=== PATIENT | female | born 1990 | race Hispanic/Latino ===

== ENCOUNTER 2020-08-20 01:17 | Emergency (ER) | payer SELFPAY ==
[2020-08-20] MEDS ORDERED: MORPHINE 4 MG/ML SYR ONE (02:39)
[2020-08-20] MEDS ORDERED: NA CHLORIDE 0.9% 1,000 ML ONE (02:39)
[2020-08-20] MEDS ORDERED: ONDANSETRON 4 MG/2 ML VIAL ONE (02:39)
[2020-08-20 02:50] LABS: Absolute Lymphocytes (CBC) 3.3 K/uL (0.7-4.9); Basophils % 0.3 % (0-1.3); Hematocrit 37.2 % (36.0-45.0); Lymphocytes % 27.1 % (15.3-44.8); MPV 9.6 fL (7.6-11.3); RBC Red Blood Cell Count 4.91 M/uL (3.86-4.86)
[2020-08-20 03:44] LABS: Potassium 3.8 mmol/L (3.5-5.1)
[2020-08-20 03:51] LABS: Urine Bacteria <20 /HPF (<20); Urine Culture Reflex Order REFLEXED; Urine RBC <5 /HPF (NONE SEEN); Urine Urothelial Cells <5 /HPF (NONE SEEN)
[2020-08-20 03:52] LABS: Urine Blood TRACE (NEG); Urine Glucose NEGATIVE (NEG); Urine Protein NEGATIVE (NEG); Urine pH 5.5 (5.0-7.0)
--- NOTE | 2020-08-20 04:37 | ER ---
Nurse's Notes [facility] Name: Makenna Santo Age: 30 yrs Sex: Female : 1990 Arrival Date: 08/20/2020 Time: :19 Bed 5 Private MD: Diagnosis: Low Back Pain;;UTI Presentation: 08/20 01:30 Coronavirus screen: At this time, the client does not indicate any symptoms associated ea with coronavirus-19. Ebola Screen: No symptoms or risks identified at this time. Initial Sepsis Screen: Does the patient meet any 2 criteria? No. Patient's initial sepsis screen is negative. Does the patient have a suspected source of infection? No. Patient's initial sepsis screen is negative. Risk Assessment: Do you want to hurt yourself or someone else? Patient reports no desire to harm self or others. Onset of symptoms was August 20, 2020. 01:30 Method Of Arrival: Ambulatory ea 01:30 Acuity: MARY ANN 3 ea 01:32 Chief complaint: Patient states: Reports Tuesday afternoon she started having lower back ea cramping, reports she has also been having cramping. Triage Assessment: 02:03 General: Appears uncomfortable, Behavior is appropriate for age. Pain: Complains of ea pain in low back area. Musculoskeletal: Circulation, motion, and sensation intact. 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 - Social history:: Smoking status: Patient denies any tobacco usage or history of. Screenin:32 Abuse screen: Denies threats or abuse. Nutritional screening: No deficits noted. ea Tuberculosis screening: No symptoms or risk factors identified. Fall Risk None identified. Assessment: 02:04 General: Appears uncomfortable, Behavior is appropriate for age. Pain: Complains of ea pain in back and low back area. Neuro: Level of Consciousness is awake, alert, obeys commands, Oriented to person, place, time. Cardiovascular: Patient's skin is warm and dry. Respiratory: Airway is patent Respiratory effort is even, unlabored, Respiratory pattern is regular, symmetrical. Derm: Skin is pink, warm \T\ dry. 03:00 Reassessment: Patient and/or family updated on plan of care and expected duration. Pain ea level reassessed. Patient is alert, oriented x 3, equal unlabored respirations, skin warm/dry/pink. 04:40 Reassessment: Patient and/or family updated on plan of care and expected duration. Pain ea level reassessed. Patient is alert, oriented x 3, equal unlabored respirations, skin warm/dry/pink. Discharge instruction given to patient, verbalized the understanding of instruction. Pt left ED ambulatory tolerating well. Vital Signs: 02:02 BP 126 / 79; Pulse 94; Resp 18; Temp 97.6; Pulse Ox 99% ; Weight 156.94 kg; Height 5 ea ft. 6 in. (167.64 cm); 02:02 Body Mass Index 55.85 (156.94 kg, 167.64 cm) ea ED Course: 01:19 Patient arrived in ED. ag3 01:21 Angelito Salas MD is Attending Physician. 7 01:30 Arm band placed on right wrist. Patient placed in an exam room, on a stretcher, on ea pulse oximetry. 01:55 Triage completed. ea 01:56 Placed in gown. Bed in low position. Call light in reach. ea 01:57 Nguyen Lima, NANCI is Primary Nurse. ea 02:02 Urine --Ancillary (enter results) Sent. ds4 02:20 T\T\S collected, blood band applied to patient. Inserted saline lock: 20 gauge in right ds4 forearm, using aseptic technique. Blood collected. 04:12 US Transvaginal Ob In Process Unspecified. EDMS 04:46 No provider procedures requiring assistance completed. IV discontinued, intact, ea bleeding controlled, No redness/swelling at site. Pressure dressing applied. Administered Medications: 02:35 Drug: morphine 4 mg {Note: rass 0.} Route: IVP; Site: right antecubital; ea 03:00 Follow up: Response: No adverse reaction; Pain is decreased ea 02:36 Drug: Zofran (Ondansetron) 4 mg Route: IVP; Site: right antecubital; ea 03:00 Follow up: Response: No adverse reaction ea 02:36 Drug: NS 0.9% 1000 ml Route: IV; Rate: 1000 ml; Site: right antecubital; ea 04:32 Drug: Augmentin 875 mg Route: PO; ea 04:46 Follow up: Response: No adverse reaction ea Outcome: 04:36 Discharge ordered by mh7 04:46 Discharged to home ambulatory, with family. ea 04:46 Condition: stable 04:46 Discharge instructions given to patient, Instructed on discharge instructions, follow up and referral plans. medication usage, Demonstrated understanding of instructions, follow-up care, medications, Prescriptions given X 3. 04:47 Patient left the ED. ea Signatures: Dispatcher [employer] EDMS Daisy Joya RN Dayday Sanchez4 Nguyen Lima RN Nita So ea3 Angelito Salas MD MD mh7 Corrections: (The following items were deleted from the chart) 02:36 02:35 morphine 4 mg IVP in right antecubital ea ea 03:48 01:57 LMP 07/07/2020 popeye chapman
--- NOTE | 2020-08-20 04:37 | EDPHYS ---
Physician Documentation [facility] Name: Makenna Santo Age: 30 yrs Sex: Female : 1990 Arrival Date: 08/20/2020 Time: 01:19 Bed 5 Private MD: ED Physician Angelito Salas HPI: 08/20 02:12 This 30 yrs old Female presents to ER via Ambulatory with complaints of Back mh7 Pain. 02:12 The patient presents with pain that is acute. The symptoms are located in the low back. mh7 Onset: The symptoms/episode began/occurred 3 day(s) ago. The pain does not radiate. Associated signs and symptoms: Pertinent positives: nausea, vomiting, Pertinent negatives: abdominal pain, chest pain, constipation, dysuria, fever, headache, hematuria, incontinence, numbness, tingling, urinary retention, weakness. The problem was sustained when bending over, from twisting. Modifying factors: The patient symptoms are alleviated by nothing, the patient symptoms are aggravated by bending, movement. Severity of symptoms: At their worst the symptoms were moderate, yesterday, in the emergency department the symptoms are unchanged. 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 - Social history:: Smoking status: Patient denies any tobacco usage or history of. ROS: 02:12 Constitutional: Negative for fever, chills, and weight loss, Eyes: Negative for injury, mh7 pain, redness, and discharge, ENT: Negative for injury, pain, and discharge, Neck: Negative for injury, pain, and swelling, Cardiovascular: Negative for chest pain, palpitations, and edema, Respiratory: Negative for shortness of breath, cough, wheezing, and pleuritic chest pain, Abdomen/GI: Negative for abdominal pain, nausea, vomiting, diarrhea, and constipation, : Negative for injury, bleeding, discharge, and swelling, MS/Extremity: Negative for injury and deformity, Skin: Negative for injury, rash, and discoloration, Neuro: Negative for headache, weakness, numbness, tingling, and seizure, Psych: Negative for depression, anxiety, suicide ideation, homicidal ideation, and hallucinations, Allergy/Immunology: Negative for hives, rash, and allergies, Endocrine: Negative for neck swelling, polydipsia, polyuria, polyphagia, and marked weight changes, Hematologic/Lymphatic: Negative for swollen nodes, abnormal bleeding, and unusual bruising. Exam: 02:12 Head/Face: Normocephalic, atraumatic. Eyes: Pupils equal round and reactive to light, mh7 extra-ocular motions intact. Lids and lashes normal. Conjunctiva and sclera are non-icteric and not injected. Cornea within normal limits. Periorbital areas with no swelling, redness, or edema. Neck: Trachea midline, no thyromegaly or masses palpated, and no cervical lymphadenopathy. Supple, full range of motion without nuchal rigidity, or vertebral point tenderness. No Meningismus. Chest/axilla: Normal chest wall appearance and motion. Nontender with no deformity. No lesions are appreciated. Cardiovascular: Regular rate and rhythm with a normal S1 and S2. No gallops, murmurs, or rubs. Normal PMI, no JVD. No pulse deficits. Respiratory: Lungs have equal breath sounds bilaterally, clear to auscultation and percussion. No rales, rhonchi or wheezes noted. No increased work of breathing, no retractions or nasal flaring. Abdomen/GI: Soft, non-tender, with normal bowel sounds. No distension or tympany. No guarding or rebound. No evidence of tenderness throughout. 02:12 Skin: Warm, dry with normal turgor. Normal color with no rashes, no lesions, and no evidence of cellulitis. MS/ Extremity: Pulses equal, no cyanosis. Neurovascular intact. Full, normal range of motion. Neuro: Awake and alert, GCS 15, oriented to person, place, time, and situation. Cranial nerves II-XII grossly intact. Motor strength 5/5 in all extremities. Sensory grossly intact. Cerebellar exam normal. Normal gait. Psych: Awake, alert, with orientation to person, place and time. Behavior, mood, and affect are within normal limits. 02:12 Constitutional: The patient appears in no acute distress, alert, awake, uncomfortable. 02:12 Back: pain, that is mild, ROM is painful, with all movement, normal spinal alignment noted, CVA tenderness, is absent, muscle spasm, is appreciated in the lumbar area, Straight leg raises: of both lower extremities does not illicit pain. Vital Signs: 02:02 BP 126 / 79; Pulse 94; Resp 18; Temp 97.6; Pulse Ox 99% ; Weight 156.94 kg; Height 5 ea ft. 6 in. (167.64 cm); 02:02 Body Mass Index 55.85 (156.94 kg, 167.64 cm) ea MDM: 02:01 Patient medically screened. [facility] 04:32 Differential diagnosis: chronic back pain, Osteoarthritis Pyelonephritis mh7 sprain, Ureterolithiasis UTI. Data reviewed: vital signs, nurses notes, old medical records, lab test result(s), CBC, electrolytes, urinalysis, UPT: radiologic studies, ultrasound. Data interpreted: Pulse oximetry: on room air is 99 %. Interpretation: normal. Counseling: I had a detailed discussion with the patient and/or guardian regarding: the historical points, exam findings, and any diagnostic results supporting the discharge/admit diagnosis, lab results, radiology results, the need for outpatient follow up, an OB/Gyne specialist, to return to the emergency department if symptoms worsen or persist or if there are any questions or concerns that arise at home. Response to treatment: the patient's symptoms have resolved after treatment, the patient's blood pressure is in an acceptable range, mental status has returned to baseline, the patient no longer shows bradycardia, the patient is not short of breath, the patient is not tachycardic, the patient's pain is gone, the patient's temperature has normalized. 08/20 02:01 Order name: Quantitative Hcg; Complete Time: 03:56 ea 08/20 02:01 Order name: Abo/rh Typing; Complete Time: 03:56 ea 08/20 02:01 Order name: Basic Metabolic Panel; Complete Time: 03:56 ea 08/20 02:01 Order name: CBC with Diff; Complete Time: 02:58 ea 08/20 02:01 Order name: Urine --Ancillary (enter results); Complete Time: 03:56 ds4 08/20 02:01 Order name: Urine Microscopic Only; Complete Time: 03:56 ds4 08/20 02:01 Order name: Urine Test (obtain specimen); Complete Time: 02:01 ea 08/20 02:02 Order name: Urine Dipstick--Ancillary (enter results); Complete Time: 03:56 ds4 08/20 02:03 Order name: US Transvaginal Ob mh7 08/20 03:53 Order name: Urine Culture EDMS 08/20 02:01 Order name: IV Saline Lock; Complete Time: 02:22 ea 08/20 02:01 Order name: Labs collected and sent; Complete Time: 02:22 ea 08/20 02:01 Order name: NPO; Complete Time: 02:01 ea 08/20 02:01 Order name: Urine Dipstick-Ancillary (obtain specimen); Complete Time: 02:02 ea Administered Medications: 02:35 Drug: morphine 4 mg {Note: rass 0.} Route: IVP; Site: right antecubital; ea 03:00 Follow up: Response: No adverse reaction; Pain is decreased ea 02:36 Drug: Zofran (Ondansetron) 4 mg Route: IVP; Site: right antecubital; ea 03:00 Follow up: Response: No adverse reaction ea 02:36 Drug: NS 0.9% 1000 ml Route: IV; Rate: 1000 ml; Site: right antecubital; ea 04:32 Drug: Augmentin 875 mg Route: PO; ea 04:46 Follow up: Response: No adverse reaction ea Disposition: 08/20/20 04:36 Discharged to Home. Impression: Low Back Pain, , UTI. - Condition is Stable. - Discharge Instructions: Back Pain in , Back Pain, Adult, [id number], and Urinary Tract Infection. - Prescriptions for Augmentin 875- 125 mg Oral Tablet - take 1 tablet by ORAL route every 12 hours for 7 days; 14 tablet. Zofran ODT 4 mg Oral tablet,disintegrating - place 1 tablet by TRANSLINGUAL route every 8 hours As needed; 10 tablet. - Work release form, Family Work Release, Medication Reconciliation Form, Thank You Letter, Antibiotic Education, Prescription Opioid Use form. - Follow up: Private Physician; When: 1 - 2 days; Reason: Worsening of condition, Recheck today's complaints, Continuance of care, Re-evaluation by your physician. - Problem is an acute exacerbation. - Symptoms have improved. Signatures: Dispatcher [employer] Nguyen Nielson RN RN ea Holmes, Maurice, MD MD mh7 Corrections: (The following items were deleted from the chart) 04:47 04:36 08/20/2020 04:36 Discharged to Home. Impression: Low Back Pain; ; UTI. ea Condition is Stable. Forms are Medication Reconciliation Form, Thank You Letter, Antibiotic Education, Prescription Opioid Use. Follow up: Private Physician; When: 1 - 2 days; Reason: Worsening of condition, Recheck today's complaints, Continuance of care, Re-evaluation by your physician. Problem is an acute exacerbation. Symptoms have improved. mh7
[2020-08-20] MEDS ORDERED: AMOX/K CLAV 875 MG TAB ONE (04:43)
[2020-08-20 04:56] VITALS: BP 126/79; TEMP 97.6; O2SAT 99
--- NOTE | 2020-08-20 08:00 | RAD REPORT ---
EXAM DESCRIPTION: US - Transvaginal OB - 08/20/2020 4:13 am CLINICAL HISTORY: ABD CRAMPING, , beta HCG 21 Preliminary findings were provided at the time of the study. COMPARISON: Transvaginal OB dated 09/16/2017 FINDINGS: Exam is limited due to large body habitus. Several nabothian cysts are present. Right ovarian detail is limited. No suspicious mass. A small 14 millimeter cyst is identified. No left ovarian abnormality seen. Left ovary detail is limited as well . Uterus is approximately 10 x 5 x 5.5 cm. No myometrial mass. Endometrium is approximately 13 mm in th ickness. No gestational sac or sac remnant identifiable. No hematoma or mass within the endometrial cavity. No adnexal abnormality to suspect ectopic . IMPRESSION: No intrauterine gestational sac or sac remnant. No suspicion for ectopic at th is time. Follow-up sonography can be performed as warranted if serial HCG values indicate ongoing .
== END 2020-08-20 04:47 | disposition home or self-care (01) ==
LOC: ER 01:17
DX: O23.40 Unspecified infection of urinary tract in pregnancy, unspecified trimester (principal); Z3A.00 Weeks of gestation of pregnancy not specified
CPT/HCPCS: 36415; 76817; 80048; 81003; 81015; 81025; 84702; 85025; 86900; 86901; 87086; 87088; 96374; 96375; 99284; J2405; J7030

== ENCOUNTER 2021-12-04 01:17 | Emergency (ER) | payer SELFPAY ==
--- OUTSIDE RECORDS SUMMARY | 2021-12-04 01:29 | XMS REPORT | Continuity of Care Document ---
:1990 Author Organization [facility] [place] [facility] t Address Formerly [facility] [address] [place] [id number] Care Team Providers Name Role Phone Wali ABARCA Attending Clinician Unavailable Riam ESCAMILLA, C Attending Clinician Nicolle UP R Attending Clinician Fabricio CHRISTINE Attending Clinician Unavailable Visit, Nurse Attending Clinician Unavailable Cecil CASAREZ, M Attending Clinician Doctor Unassigned, Name Attending Clinician Unavailable Risk Attending Clinician Unavailable Socorro ESCAMILLA, L Attending Clinician Ultrasound Attending Clinician Unavailable Fadi CASAREZ R Attending Clinician Martin CASAREZ Attending Clinician Eliceo CASAREZ L Attending Clinician Savannah CHRISTINE, T Attending Clinician Unavailable Antinoe CASAREZ Attending Clinician Evans Attending Clinician Unavailable Lab Attending Clinician Unavailable Guille CASAREZ, W Attending Clinician Hunter CHRISTINE Attending Clinician Unavailable Dakotah ANGEL, R Attending Clinician Lab Attending Clinician Unavailable 3, Mfm Usg Room Attending Clinician Unavailable Gene ANGEL Attending Clinician 5, Mfm Usg Room Attending Clinician Unavailable Nico CASAREZ, F Attending Clinician Trimester, Res-1st Attending Clinician Unavailable Nataly CASAREZ, W Attending Clinician Sean SWARTZP, N Attending Clinician Alexis Arizmendi Attending Clinician Brandi FENTON Admitting Clinician Unavailable Brandi Fenton MD Admitting Clinician Payers Payer Name Policy Type Policy Number Effective Date Expiration Date Anh ADAN [id number] 2020 HEALTH PLAN MOM 00:00:00 CHIP LOW F[employer] MEDICAID ALIEN PENDING 2020 PENDING 00:00:00 FAMILY PLANNING [id number] 2019 2021 KELY 0-100% 00:00:00 00:00:00 Advance Directives Directive Decision Effective Termination Comments Source Date Date Healthcare Agents on N/A Univ ersity FileNameRelationshipHealthcare [facility] [place] Agent Medical RelationshipCommunicationJacob [place] GuerraSpouseHealth Care [phone] (Mobile) April BourgeoisValleywise Health Medical CentertherHealth Care [phone] (Mobile) Problems Condition Condition Condition Status Onset Resolution Last Treating Co mments Source Name Details Category Date Date Treatment Clinician Date Routine Routine Disease Active Univers 6-29 it y of [place] 00 [place] 37 weeks 37 weeks Disease Active Unive rs gestation gestation 6-07 ity of of of 00:00: [place] 00 [facility] LGA (large LGA (large Disease Active Overview : Univers for for 5-25 Formattin ity of gestationa gestationa 00:00: g of this [place] l age) l age) 00 note Medical fetus fetus might be Branch affecting affecting different management management from the of mother of mother original. See usg report 33 weeks 33 weeks Disease Active Unive rs gestation gestation 5-14 ity of of of 00:00: [place] 00 [facility] Fall at Fall at Disease Active Univers home home 5-14 ity of 00:00: [address] Branch GDM GDM Disease Active Overview: Univer s (gestation (gestation 3-24 Formattin ity of al al 00:00: g of this [place] diabetes diabetes 00 note Medica l mellitus) mellitus) might be Br anch different from the original. A1c 6.1 Abnormal Abnormal Disease Active 2019-11 Overview: Un petra maternal maternal 2-11 Formattin ity of glucose glucose 00:00: g of this [place] tolerance, tolerance, 00 note Me dical antepartum antepartum might be Branch different from the original. Passed early 3hr gtt Rubella Rubella Disease Active 2019-11 Overview: Univ ers non-immune non-immune 2-11 Formattin ity of status, status, 00:00: g of this [place] antepartum antepartum 00 note Me dical might be Branch different from the original. Address pp Supervisio Supervisio Disease Active 2019-11 U nivers n of n of 2-10 ity of high-risk high-risk 00:[place] [facility] Multiparit Multiparit Disease Active 2019-11 U nivers y y 2-10 ity of 00:00: [place] 00 Medical Branch History of History of Disease Active 2019-11 Overview : Univers depression depression 2-10 Formattin ity of 00:00: g of this [place] 00 note Medical might be Branch different from the original. Not on meds since 2017, reports stable mood currently Desires Desires Disease Active 2019-11 Univers 2-10 ity of (vaginal (vaginal 00:00: [place] 00 Medical after after Branch ) ) trial trial Threatened Threatened Disease Active U nivers miscarriag miscarriag 26 it y of e e 00:00: [place] [facility] Branch Previous Previous Disease Active Overview: Un petra 8-14 Formattin ity of delivery delivery 00:00: g of this Bib as affecting affecting 00 note [facility] might be Br anch different from the original. Primary c sec, desires see chart review Obesity Obesity Disease Active Univers affecting affecting 8-14 it[place] first 00 Medica l trimester trimester Bran ch High risk High risk Disease Active Uni vers , , 8-14 it y of antepartum antepartum [place] [facility] Branch Well woman Well woman Disease Active U nivers exam exam 7-19 ity of 00:00: [place] 00 Medical [place] Contracept Contracept Disease Active U nivers omega omega 7-19 ity of management management [place] Morbid Morbid Disease Active Univers obesity obesity 7-19 ity of 00:00: [address] Obesity in Obesity in Disease Active U nivers 7-19 ity of 00:00: [address] Rubella Rubella Disease Active 2016-11 Univers non-immune non-immune 0-25 it y of status, status, 00:00: [place] antepartum antepartum 00 Me dical Branch History of History of Disease Active 2016-11 Overview : Univers suicidal suicidal 0-24 OD on ity of ideation ideation 00:00: ibuprofen Bib as 00 last Medical week, Branch admitted to the hospital on 08-23, patient reports stable mood today History of History of Disease Active 2016-11 Overview : Univers attempted attempted 0-24 Formattin i ty of suicide suicide 00:00: g of this [place] note Medical might be Branch different from the original. OD on ibuprofen last week, admitted to the hospital on 08-23, patient reports stable mood today Allergies, Adverse Reactions, Alerts Allergy Allergy Status Severity Reaction(s) Onset Inactive Treating Comm ents Source Name Type Date Date Clinician NO KNOWN Drug Active Univers ALLERGIE Class ity of S [facility] Social History Social Habit Start Date Stop Date Quantity Comments Source ASSERTION 2020-08-11 University of 00:00:00 [facility] Exposure to Not sure [facility] SARS-CoV-2 [facility] [place] [facility] (event) [place] Alcohol intake 2021-05-05 2021-05-05 Current drinker Unive rsity of 00:00:00 00:00:00 of alcohol [facility] [place] [facility] (finding) [place] Tobacco use and 2021-05-05 2021-05-05 Never used Universit y of exposure 00:00:00 00:00:00 [facility] Alcohol Comment 2017-08-30 2017-08-30 social; D/C Universi ty of 00:00:00 00:00:00 since 3 months [facility] Sex Assigned At [birth year] Universit y of 00:00:00 00:00:00 [facility] Smoking Status Start Date Stop Date Source Never smoker [facility] Medications Ordered Filled Start Stop Current Ordering Indication Dosage Frequency Signature Comments Components Source Medication Medication Date Date Medication? Clinician (SIG) Name Name ketorolac No 15mg 15 mg, Unive rs (TORADOL) 6-29 06-29 Slow IV ity of injection 08:30: 07:19 Push, [place] 15 mg 00 :00 ONCE, 1 Medical dose, Tue Branch 05/05/21 at 0330, JOHN
[facility] Restricted medication : CARMEN MORALES HYDROcodone 2020- No 1{tbl} 1 tablet, Univers -acetaminop 05-05 Oral, ity of hen (NORCO 08:30: 07:19 ONCE, 1 Bib as 5) 5-325 mg 00 :00 dose, Tue Med ical tablet 1 05/05/21 at [facility] h tablet 0330, JOHN NaCl 0.9% 2020- No 1000mL at 999 Uni vers (NS) bolus 05-05 mL/hr, ity of infusion 05:00: 07:36 1,000 mL, Bib as 1,000 mL 00 :00 IV Medical Infusion, Branch ONCE, 1 dose, 05/05/21 at 0000, JOHN 0 Yes [id number] 1{tbl} Take 1 Univers vitamin 6-10 tablet by ity of w/FA tablet 00:00: mouth [place] 00 daily. Medical Branch docusate Yes [id number] 240mg Take 1 U nivers calcium 240 6-10 capsule by it y of mg capsule 00:00: mouth once [place] 00 daily as Medical needed for Branch Constipati on. ferrous Yes [id number] 325mg Take 1 Un petra sulfate 325 6-10 tablet by ity of mg (65 mg 00:00: mouth 2 [place] iron) 00 (two) Medical tablet times Branch daily. ibuprofen Yes [id number] 600mg Take 1 Univers 600 mg 6-10 tablet by ity of tablet 00:00: mouth [place] 00 every 6 Medical (six) Branch hours as needed (Pain). Take with food or milk. Yes [id number] 1{tbl} Take 1 Univers vitamin 6-10 tablet by ity of w/FA tablet 00:00: mouth [place] 00 daily. Medical Branch docusate Yes [id number] 240mg Take 1 U nivers calcium 240 6-10 capsule by it y of mg capsule 00:00: mouth once [place] 00 daily as Medical needed for Branch Constipati on. ferrous Yes [id number] 325mg Take 1 Un pet[place] sulfate 325 6-10 tablet by ity of mg (65 mg 00:00: mouth 2 [place] iron) 00 (two) Medical tablet times Branch daily. ibuprofen Yes [id number] 600mg Take 1 Univers 600 mg 6-10 tablet by ity of tablet 00:00: mouth [place] 00 every 6 Medical (six) Branch hours as needed (Pain). Take with food or milk. Yes [id number] 1{tbl} Take 1 Univers vitamin 6-10 tablet by ity of w/FA tablet 00:00: mouth [place] 00 daily. Medical Branch docusate Yes [id number] 240mg Take 1 U nivers calcium 240 6-10 capsule by it y of mg capsule 00:00: mouth once [place] 00 daily as Medical needed for Branch Constipati on. ferrous Yes [id number] 325mg Take 1 Un pet[place] sulfate 325 6-10 tablet by ity of mg (65 mg 00:00: mouth 2 [place] iron) 00 (two) Medical tablet times Branch daily. ibuprofen Yes [id number] 600mg Take 1 Univers 600 mg 6-10 tablet by ity of tablet 00:00: mouth [place] 00 every 6 Medical (six) Branch hours as needed (Pain). Take with food or milk. Yes [id number] 1{tbl} Take 1 Univers vitamin 6-10 tablet by ity of w/FA tablet 00:00: mouth [place] 00 daily. Medical Branch docusate Yes [id number] 240mg Take 1 U nivers calcium 240 6-10 capsule by it y of mg capsule 00:00: mouth once [place] 00 daily as Medical needed for Branch Constipati on. ferrous Yes [id number] 325mg Take 1 Un petra sulfate 325 6-10 tablet by ity of mg (65 mg 00:00: mouth 2 [place] iron) 00 (two) Medical tablet times Branch daily. ibuprofen Yes [id number] 600mg Take 1 Univers 600 mg 6-10 tablet by ity of tablet 00:00: mouth [place] 00 every 6 Medical (six) Branch hours as needed (Pain). Take with food or milk. enoxaparin 2020- No [id number] 40mg inject 0.4 Univers 40 mg/0.4 6-10 07-23 mL under ity o f mL 00:00: 04:59 the skin [place] injection 00 :00 every 12 Medica l (twelve) Branch hours for 42 days. enoxaparin 2020- No [id number] 40mg inject 0.4 Univers 40 mg/0.4 6-10 07-23 mL under ity o f mL 00:00: 04:59 the skin [place] injection 00 :00 every 12 Medica l (twelve) Branch hours for 42 days. enoxaparin 2020- No [id number] 40mg inject 0.4 Univers 40 mg/0.4 6-10 07-23 mL under ity o f mL 00:00: 04:59 the skin [place] injection 00 :00 every 12 Medica l (twelve) Branch hours for 42 days. enoxaparin 2020- No [id number] 40mg inject 0.4 Univers 40 mg/0.4 6-10 07-23 mL under ity o f mL 00:00: 04:59 the skin [place] injection 00 :00 every 12 Medica l (twelve) Branch hours for 42 days. HYDROcodone 2020- No [id number] 1{tbl} Take 1 U nivers -acetaminop 04-1618 tablet by it y of hen 5-325 00:00: 04:59 mouth [place] mg tablet 00 :00 every 6 Medical (six) Branch hours as needed for Pain (scale 4-6) for up to 7 days. Indication s: acute pain rho(D) Yes 300ug 300 mcg, Univer s immune 08 Intramuscu ity of globulin 16:21: lar, ONCE, Bib as (RHOGAM) 04 For 1 Medical syringe 300 dose, Branch mcg Conditiona l, Routine ondansetron Yes 4mg 4 mg, Slow Univers (ZOFRAN 04-14 IV Push, ity of (PF)) 16:20: Q8HPRN, [place] injection 4 59 Starting Medi oscar mg 04/14/21 Branch at 1120, Until Discontinu ed, Routine, Nausea and Vomiting (N/V) simethicone 2020-0 Yes 160mg 160 mg, Un petra (GAS RELIEF 6-08 Oral, ity of (SIMETHICON 16:20: PC+HSPRN, [place] E)) 59 Starting Medical chewable Tue04/14/21 Branc h tablet 160 at 1120, mg Until Discontinu ed, Routine, Gas HYDROcodone 2020-0 Yes 2{tbl} 2 tablet, Univers -acetaminop 6-08 Oral, ity of hen (NORCO 16:20: Q6HPRN, [place] 5) 5-325 mg 58 Starting Medi oscar tablet 2 Tue04/14/21 Branc h tablet at 1120, Until Discontinu ed, Routine, Pain (scale 7-10), If uncontroll ed by Ibuprofen HYDROcodone 0 Yes 1{tbl} 1 tablet, Univers -acetaminop 6-08 Oral, ity of hen (NORCO 16:20: Q6HPRN, [place] 5) 5-325 mg 58 Starting Medi oscar tablet 1 Tue04/14/21 Branc h tablet at 1120, Until Discontinu ed, Routine, Pain (scale 4-6), If uncontroll ed by Ibuprofen ibuprofen 2020-0 Yes 600mg 600 mg, Univ ers (IBU) 6-08 Oral, ity of tablet 600 16:20: Q6HPRN, [place] mg 58 Starting Medical Tue04/14/21 Branch at 1120, Until Discontinu ed, Routine, Pain (scale 1-3) diphenhydrA 0 Yes 25mg 25 mg, IV U nivers MINE-0.9 % 6-08 Piggyback, ity of sod.chlr 16:20: Administer Bib as (BENADRYL) 58 over 30 Medica l 25 mg/50 mL Minutes, Bran ch piggyback Q6HPRN, 1 25 mg dose, Starting Tue04/14/21 at 1120, Until Discontinu ed, Routine, Itching diphenhydrA 2020-0 Yes 25mg 25 mg, Univ ers MINE 6-08 Oral, ity of (BENADRYL) 16:20: Q6HPRN, [place] tablet 25 58 Starting Medica l mg Tue04/14/21 Branch at 1120, Until Discontinu ed, Routine, Sleep, Itching bisacodyL Yes 10mg 10 mg, Univer s (DULCOLAX) 04-14 Rectal, ity of suppository 16:20: QDAILYPRN, [place] 10 mg 58 Starting Medical [facility] 04/14/21 Branch at 1120, Until Discontinu ed, Routine, Constipati on docusate Yes 240mg 240 mg, Unive rs calcium 08 Oral, ity of (SURFAK) 16:20: QDAILYPRN, Bib as capsule 240 58 Starting Medi oscar mg 04/14/21 Branch at 1120, Until Discontinu ed, Routine, Constipati on magnesium Yes 30mL 30 mL, Univer s hydroxide 04-14 Oral, ity of (MILK OF 16:20: QDAILYPRN, Bib as MAGNESIA) 58 Starting Medica l 400 mg/5 mL Tue04/14/21 Br anch suspension at 1120, 30 mL Until Discontinu ed, Routine, Constipati on nalbuphine Yes 5mg 5 mg, Univer s (NUBAIN) 04-14 Intravenou ity o f injection 5 15:45: s, PRN, 1 [place] mg 49 dose, Medical Starting Branch 04/14/21 at 1045, Until Discontinu ed, Routine, Itching, PACU naloxone 2020- No .4mg 0.4 mg, Unive rs (NARCAN) 04-14 06-10 Slow IV ity of injection 15:45: 15:44 Push, PRN [place] 0.4 mg 49 :49 - SEE Medical INSTRUCTIO Branch NS, Starting Tue04/14/21 at 1045, Until [place] 04/16/21 at 1044, Routine, Analgesia Recovery, PACU Insulin Yes [id number] Inject Univ ers Syringe-Nee 5-20 humulin R ity of dle U-100 00:00: insulin SQ [place] (BD INSULIN 00 AC Medical SYRINGE breakfast Branch ULTRA-FINE) and SQ AC 0.5 mL 31 supper as gauge x directed 03/22" Syrg Insulin Yes [id number] Inject Univ ers Syringe-Nee 5-20 humulin R ity of dle U-100 00:00: insulin SQ [place] (BD INSULIN 00 AC Medical SYRINGE breakfast Branch ULTRA-FINE) and SQ AC 0.5 mL 31 supper as gauge x directed 5/16" Syrg Insulin 2020-0 Yes [id number] Inject Univ ers Syringe-Nee 5-20 humulin R ity of dle U-100 00:00: insulin SQ [place] (BD INSULIN 00 AC Medical SYRINGE breakfast Branch ULTRA-FINE) and SQ AC 0.5 mL 31 supper as gauge x directed 5/16" Syrg Insulin 2020-0 Yes [id number] Inject Univ ers Syringe-Nee 5-20 humulin R ity of dle U-100 00:00: insulin SQ [place] (BD INSULIN 00 AC Medical SYRINGE breakfast Branch ULTRA-FINE) and SQ AC 0.5 mL 31 supper as gauge x directed 5/16" Syrg Insulin 0 Yes [id number] Inject Univ ers Syringe-Nee 5-20 humulin R ity of dle U-100 00:00: insulin SQ [place] (BD INSULIN 00 AC Medical SYRINGE breakfast Branch ULTRA-FINE) and SQ AC 0.5 mL 31 supper as gauge x directed 5/16" Syrg Insulin 0 Yes [id number] Inject Univ ers Syringe-Nee 5-20 humulin R ity of dle U-100 00:00: insulin SQ [place] (BD INSULIN 00 AC Medical SYRINGE breakfast Branch ULTRA-FINE) and SQ AC 0.5 mL 31 supper as gauge x directed 5/16" Syrg Insulin 2020-0 Yes [id number] Inject Univ ers Syringe-Nee 5-20 humulin R ity of dle U-100 00:00: insulin SQ [place] (BD INSULIN 00 AC Medical SYRINGE breakfast Branch ULTRA-FINE) and SQ AC 0.5 mL 31 supper as gauge x directed 5/16" Syrg Insulin 2020-0 Yes [id number] Inject Univ ers Syringe-Nee 5-20 humulin R ity of dle U-100 00:00: insulin SQ [place] (BD INSULIN 00 AC Medical SYRINGE breakfast Branch ULTRA-FINE) and SQ AC 0.5 mL 31 supper as gauge x directed 5/16" Syrg Insulin 2020-0 Yes [id number] Inject Univ ers Syringe-Nee 5-20 humulin R ity of dle U-100 00:00: insulin SQ [place] (BD INSULIN 00 AC Medical SYRINGE breakfast Branch ULTRA-FINE) and SQ AC 0.5 mL 31 supper as gauge x directed 03/22" Syrg Insulin Yes [id number] Inject Univ ers Syringe-Nee 5-20 humulin R ity of dle U-100 00:00: insulin SQ [place] (BD INSULIN 00 AC Medical SYRINGE breakfast Branch ULTRA-FINE) and SQ AC 0.5 mL 31 supper as gauge x directed 03/22" Syrg lactated 2020- No 1000mL at 1,000 Un petra ringers IV 5-14 05-14 mL/hr, ity of infusion 18:30: 17:30 1,000 mL, Bib as 1,000 mL 00 :00 IV Medical Infusion, Branch ONCE, 1 dose, Tue03/20/21 at 1330, Routine acetaminoph Yes 1000mg 1,000 mg, Univers en 5-14 Oral, ity of (TYLENOL) 17:21: Q6HPRN, [place] tablet 24 Starting Medical 1,000 mg Tue Branch 03/20/21 at 1221, Until Discontinu ed, Routine, Pain (scale 1-3) BD VEO Yes INJECT Univers INSULIN 4-23 INSULIN ity of SYRINGE UF 00:00: USE THREE [place] 1 mL 31 00 TIMES A Medical gauge x DAY K Branch 64" Syrg CRAIG BD VEO Yes INJECT Univers INSULIN 4-23 INSULIN ity of SYRINGE UF 00:00: USE THREE [place] 1 mL 31 00 TIMES A Medical gauge x DAY K Branch 1564" Syrg CRAIG BD VEO Yes INJECT Univers INSULIN 4-23 INSULIN ity of SYRINGE UF 00:00: USE THREE [place] 1 mL 31 00 TIMES A Medical gauge x DAY K Branch 1564" Syrg CRAIG BD VEO Yes INJECT Univers INSULIN 4-23 INSULIN ity of SYRINGE UF 00:00: USE THREE [place] 1 mL 31 00 TIMES A Medical gauge x DAY K Branch 1564" Syrg CRAIG BD VEO Yes INJECT Univers INSULIN 4-23 INSULIN ity of SYRINGE UF 00:00: USE THREE [place] 1 mL 31 00 TIMES A Medical gauge x DAY K Branch 15/64" Theodore CRAIG BD VEO 2020-0 Yes INJECT Univers INSULIN 4-23 INSULIN ity of SYRINGE UF 00:00: USE THREE [place] 1 mL 31 00 TIMES A Medical gauge x DAY K Branch 15/64" Theodore CRAIG BD VEO 2020-0 Yes INJECT Univers INSULIN 4-23 INSULIN ity of SYRINGE UF 00:00: USE THREE [place] 1 mL 31 00 TIMES A Medical gauge x DAY K Branch 15/64" Theodore CRAIG BD VEO 2020-0 Yes INJECT Univers INSULIN 4-23 INSULIN ity of SYRINGE UF 00:00: USE THREE [place] 1 mL 31 00 TIMES A Medical gauge x DAY K Branch 15/64" Theodore CRAIG BD VEO 2020-0 Yes INJECT Univers INSULIN 4-23 INSULIN ity of SYRINGE UF 00:00: USE THREE [place] 1 mL 31 00 TIMES A Medical gauge x DAY K Branch 15/64" Theodore CRAIG BD VEO 2020-0 Yes INJECT Univers INSULIN 4-23 INSULIN ity of SYRINGE UF 00:00: USE THREE [place] 1 mL 31 00 TIMES A Medical gauge x DAY K Branch 15/64" Theodore CRAIG BD VEO 2020-0 Yes INJECT Univers INSULIN 4-23 INSULIN ity of SYRINGE UF 00:00: USE THREE [place] 1 mL 31 00 TIMES A Medical gauge x DAY K Branch 15/64" Theodore CRAIG BD VEO 2020-0 Yes INJECT Univers INSULIN 4-23 INSULIN ity of SYRINGE UF 00:00: USE THREE [place] 1 mL 31 00 TIMES A Medical gauge x DAY K Branch 15/64" Theodore CRAIG BD VEO 2020-0 Yes INJECT Univers INSULIN 4-23 INSULIN ity of SYRINGE UF 00:00: USE THREE [place] 1 mL 31 00 TIMES A Medical gauge x DAY K Branch 15/64" Theodore CRAIG BD VEO 2020-0 Yes INJECT Univers INSULIN 4-23 INSULIN ity of SYRINGE UF 00:00: USE THREE [place] 1 mL 31 00 TIMES A Medical gauge x DAY K Branch 15/64" Theodore CRAIG BD VEO 2020-0 Yes INJECT Univers INSULIN 4-23 INSULIN ity of SYRINGE UF 00:00: USE THREE [place] 1 mL 31 00 TIMES A Medical gauge x DAY K Branch 15/64" Syrg CRAIG BD VEO 0 Yes INJECT Univers INSULIN 4-23 INSULIN ity of SYRINGE UF 00:00: USE THREE [place] 1 mL 31 00 TIMES A Medical gauge x DAY K Branch 15/64" Syrg CRAIG BD VEO 0 Yes INJECT Univers INSULIN 4-23 INSULIN ity of SYRINGE UF 00:00: USE THREE [place] 1 mL 31 00 TIMES A Medical gauge x DAY K Branch 1564" Syrg CRAIG BD VEO 2020-0 Yes INJECT Univers INSULIN 4-23 INSULIN ity of SYRINGE UF 00:00: USE THREE [place] 1 mL 31 00 TIMES A Medical gauge x DAY K Branch 15/64" Syrg CRAIG BD VEO 2020-0 Yes INJECT Univers INSULIN 4-23 INSULIN ity of SYRINGE UF 00:00: USE THREE [place] 1 mL 31 00 TIMES A Medical gauge x DAY K Branch 64" Syrg CRAIG insulin NPH 0 Yes [id number] Take 66 Univers (HUMULIN N 4-22 units SQ ity o f NPH U-100 00:00: AC [place] INSULIN) 00 breakfast Medica l 100 unit/mL and 24 Branch injection units SQ HS insulin 2020-0 Yes [id number] Take 32 Uni vers regular 4-22 units SQ ity of human 00:00: AC [place] (HUMULIN R 00 breakfast Medi oscar REGULAR and 24 Branch U-100 units SQ INSULN) 100 AC supper unit/mL injection Insulin 2020-0 Yes [id number] Inject Univ ers Syringe-Nee 4-22 insulin sq it y of dle U-100 00:00: 3 times a Bib as (BD INSULIN Medical SYRINGE Branch ULTRA-FINE) 1 mL 31 gauge x 5/16 Syrg insulin NPH 2020-0 Yes [id number] Take 66 Univers (HUMULIN N 4-22 units SQ ity o f NPH U-100 00:00: AC [place] INSULIN) 00 breakfast Medica l 100 unit/mL and 24 Branch injection units SQ HS insulin 2020-0 Yes [id number] Take 32 Uni vers regular 4-22 units SQ ity of human 00:00: AC [place] (HUMULIN R 00 breakfast Medi oscar REGULAR and 24 Branch U-100 units SQ INSULN) 100 AC supper unit/mL injection Insulin Yes [id number] Inject Univ ers Syringe-Nee 4-22 insulin sq it y of dle U-100 00:00: 3 times a Bib as (BD INSULIN day Medical SYRINGE Branch ULTRA-FINE) 1 mL 31 gauge x 5/16 Syrg insulin NPH Yes [id number] Take 66 Univers (HUMULIN N 4-22 units SQ ity o f NPH U-100 00:00: AC [place] INSULIN) 00 breakfast Medica l 100 unit/mL and 24 Branch injection units SQ HS insulin 2020- Yes [id number] Take 32 Uni vers regular 4-22 units SQ ity of human 00:00: AC [place] (HUMULIN R 00 breakfast Medi oscar REGULAR and 24 Branch U-100 units SQ INSULN) 100 AC supper unit/mL injection Insulin Yes [id number] Inject Univ ers Syringe-Nee 4-22 insulin sq it y of dle U-100 00:00: 3 times a Bib as (BD INSULIN day Medical SYRINGE Branch ULTRA-FINE) 1 mL 31 gauge x 5/16 Syrg insulin NPH 2020- Yes [id number] Take 66 Univers (HUMULIN N 4-22 units SQ ity o f NPH U-100 00:00: [place] INSULIN) 00 breakfast Medica l 100 unit/mL and 24 Branch injection units SQ HS insulin 2020- Yes [id number] Take 32 Uni vers regular 4-22 units SQ ity of human 00:00: [facility] (HUMULIN R 00 breakfast Medi oscar REGULAR and 24 Branch U-100 units SQ INSULN) 100 AC supper unit/mL injection Insulin 2020- Yes [id number] Inject Univ ers Syringe-Nee 4-22 insulin sq it y of dle U-100 00:00: 3 times a Bib as (BD INSULIN day Medical SYRINGE Branch ULTRA-FINE) 1 mL 31 gauge x 5/16 Syrg insulin NPH 2020- Yes [id number] Take 66 Univers (HUMULIN N 4-22 units SQ ity o f NPH U-100 00:00: AC [place] INSULIN) 00 breakfast Medica l 100 unit/mL and 24 Branch injection units SQ HS insulin 2020-0 Yes [id number] Take 32 Uni vers regular 4-22 units SQ ity of human 00:00: AC [place] (HUMULIN R 00 breakfast Medi oscar REGULAR and 24 Branch U-100 units SQ INSULN) 100 AC supper unit/mL injection Insulin 2020-0 Yes [id number] Inject Univ ers Syringe-Nee 4-22 insulin sq it y of dle U-100 00:00: 3 times a Bib as (BD INSULIN day Medical SYRINGE Branch ULTRA-FINE) 1 mL 31 gauge x 5/16 Syrg insulin NPH 2020-0 Yes [id number] Take 66 Univers (HUMULIN N 4-22 units SQ ity o f NPH U-100 00:00: AC [place] INSULIN) 00 breakfast Medica l 100 unit/mL and 24 Branch injection units SQ HS insulin 2020-0 Yes [id number] Take 32 Uni vers regular 4-22 units SQ ity of human 00:00: AC [place] (HUMULIN R 00 breakfast Medi oscar REGULAR and 24 Branch U-100 units SQ INSULN) 100 AC supper unit/mL injection Insulin 2020-0 Yes [id number] Inject [facility] ers Syringe-Nee 4-22 insulin sq it y of dle U-100 00:00: 3 times a Bib as (BD INSULIN day Medical SYRINGE Branch ULTRA-FINE) 1 mL 31 gauge x 5/16 Syrg insulin NPH 2020-0 Yes [id number] Take 66 [facility] (HUMULIN N 4-22 units SQ ity o f NPH U-100 00:00: AC [place] INSULIN) 00 breakfast Medica l 100 unit/mL and 24 Branch injection units SQ HS insulin 2020-0 Yes [id number] Take 32 [facility] vers regular 4-22 units SQ ity of human 00:00: AC [place] (HUMULIN R 00 breakfast Medi oscar REGULAR and 24 Branch U-100 units SQ INSULN) 100 AC supper unit/mL injection Insulin 2020-0 Yes [id number] Inject [facility] ers Syringe-Nee 4-22 insulin sq it y of dle U-100 00:00: 3 times a Bib as (BD INSULIN day Medical SYRINGE Branch ULTRA-FINE) 1 mL 31 gauge x 5/16 Syrg insulin NPH 2020-0 Yes [id number] Take 66 [facility] (HUMULIN N 4-22 units SQ ity o f NPH U-100 00:00: AC [place] INSULIN) 00 breakfast Medica l 100 unit/mL and 24 Branch injection units SQ HS insulin 2020-0 Yes [id number] Take 32 [facility] vers regular 4-22 units SQ ity of human 00:00: AC [place] (HUMULIN R 00 breakfast Medi oscar REGULAR and 24 Branch U-100 units SQ INSULN) 100 AC supper unit/mL injection Insulin 202-0 Yes [id number] Inject [facility] ers Syringe-Nee 4-22 insulin sq it y of dle U-100 00:00: 3 times a Bib as (BD INSULIN day Medical SYRINGE Branch ULTRA-FINE) 1 mL 31 gauge x 5/16 Syrg insulin NPH 2020-0 Yes [id number] Take 66 [facility] (HUMULIN N 4-22 units SQ ity o f NPH U-100 00:00: AC [place] INSULIN) 00 breakfast Medica l 100 unit/mL and 24 Branch injection units SQ HS insulin 2020-0 Yes [id number] Take 32 [facility] vers regular 4-22 units SQ ity of human 00:00: [facility] (HUMULIN R 00 breakfast Medi oscar REGULAR and 24 Branch U-100 units SQ INSULN) 100 AC supper unit/mL injection Insulin 2020-0 Yes [id number] Inject [facility] ers Syringe-Nee 4-22 insulin sq it y of dle U-100 00:00: 3 times a Bib as (BD INSULIN Medical SYRINGE Branch ULTRA-FINE) 1 mL 31 gauge x 5/16 Syrg insulin NPH 2020-0 Yes [id number] Take 66 [facility] (HUMULIN N 4-22 units SQ ity o f NPH U-100 00:00: [place] INSULIN) 00 breakfast Medica l 100 unit/mL and 24 Branch injection units SQ HS insulin 2020-0 Yes [id number] Take 32 [facility] vers regular 4-22 units SQ ity of human 00:00: [facility] (HUMULIN R 00 breakfast Medi oscar REGULAR and 24 Branch U-100 units SQ INSULN) 100 AC supper unit/mL injection Insulin 2020-0 Yes [id number] Inject [facility] ers Syringe-Nee 4-22 insulin sq it y of dle U-100 00:00: 3 times a Bib as (BD INSULIN day Medical SYRINGE Branch ULTRA-FINE) 1 mL 31 gauge x 5/16 Syrg insulin NPH 2020-0 Yes [id number] Take 66 [facility] (HUMULIN N 4-22 units SQ ity o f NPH U-100 00:00: [place] INSULIN) 00 breakfast Medica l 100 unit/mL and 24 Branch injection units SQ HS insulin 2020-0 Yes [id number] Take 32 [facility] vers regular 4-22 units SQ ity of human 00:00: [facility] (HUMULIN R 00 breakfast Medi oscar REGULAR and 24 Branch U-100 units SQ INSULN) 100 AC supper unit/mL injection Insulin 2020-0 Yes [id number] Inject [facility] ers Syringe-Nee 4-22 insulin sq it y of dle U-100 00:00: 3 times a Bib as (BD INSULIN day Medical SYRINGE Branch ULTRA-FINE) 1 mL 31 gauge x 5/16 Syrg insulin NPH 2020-0 Yes [id number] Take 66 [facility] (HUMULIN N 4-22 units SQ ity o f NPH U-100 00:00: [place] INSULIN) 00 breakfast Medica l 100 unit/mL and 24 Branch injection units SQ HS insulin 2020-0 Yes [id number] Take 32 [facility] vers regular 4-22 units SQ ity of human 00:00: [facility] (HUMULIN R 00 breakfast Medi oscar REGULAR and 24 Branch U-100 units SQ INSULN) 100 AC supper unit/mL injection Insulin 2020-0 Yes [id number] Inject [facility] ers Syringe-Nee 4-22 insulin sq it y of dle U-100 00:00: 3 times a Bib as (BD INSULIN day Medical SYRINGE Branch ULTRA-FINE) 1 mL 31 gauge x 5/16 Syrg insulin NPH 2020-0 Yes [id number] Take 66 [facility] (HUMULIN N 4-22 units SQ ity o f NPH U-100 00:00: [place] INSULIN) 00 breakfast Medica l 100 unit/mL and 24 Branch injection units SQ HS insulin 2020-0 Yes [id number] Take 32 [facility] vers regular 4-22 units SQ ity of human 00:00: [facility] (HUMULIN R 00 breakfast Medi oscar REGULAR and 24 Branch U-100 units SQ INSULN) 100 AC supper unit/mL injection Insulin 2020-0 Yes [id number] Inject [facility] ers Syringe-Nee 4-22 insulin sq it y of dle U-100 00:00: 3 times a Bib as (BD INSULIN day Medical SYRINGE Branch ULTRA-FINE) 1 mL 31 gauge x 5/16 Syrg insulin NPH 2020-0 Yes [id number] Take 66 [facility] (HUMULIN N 4-22 units SQ ity o f NPH U-100 00:00: [place] INSULIN) 00 breakfast Medica l 100 unit/mL and 24 Branch injection units SQ HS insulin 2020-0 Yes [id number] Take 32 [facility] vers regular 4-22 units SQ ity of human 00:00: AC [place] (HUMULIN R 00 breakfast Medi oscar REGULAR and 24 Branch U-100 units SQ INSULN) 100 AC supper unit/mL injection Insulin 2020- Yes [id number] Inject [facility] ers Syringe-Nee 4-22 insulin sq it y of dle U-100 00:00: 3 times a Bib as (BD INSULIN day Medical SYRINGE Branch ULTRA-FINE) 1 mL 31 gauge x 5/16 Syrg insulin NPH 2020- Yes [id number] Take 66 [facility] (HUMULIN N 4-22 units SQ ity o f NPH U-100 00:00: AC [place] INSULIN) 00 breakfast Medica l 100 unit/mL and 24 Branch injection units SQ HS insulin 2020- Yes [id number] Take 32 [facility] vers regular 4-22 units SQ ity of human 00:00: [facility] [place] (HUMULIN R 00 breakfast Medi oscar REGULAR and 24 Branch U-100 units SQ INSULN) 100 AC supper unit/mL injection Insulin 2020- Yes [id number] Inject [facility] ers Syringe-Nee 4-22 insulin sq it y of dle U-100 00:00: 3 times a Bib as (BD INSULIN Medical SYRINGE Branch ULTRA-FINE) 1 mL 31 gauge x 5/16 Syrg insulin NPH 2020- Yes [id number] Take 66 [facility] (HUMULIN N 4-22 units SQ ity o f NPH U-100 00:00: AC [place] INSULIN) 00 breakfast Medica l 100 unit/mL and 24 Branch injection units SQ HS insulin 2020-0 Yes [id number] Take 32 [facility] vers regular 4-22 units SQ ity of human 00:00: AC [place] (HUMULIN R 00 breakfast Medi oscar REGULAR and 24 Branch U-100 units SQ INSULN) 100 AC supper unit/mL injection Insulin 2020-0 Yes [id number] Inject [facility] ers Syringe-Nee 4-22 insulin sq it y of dle U-100 00:00: 3 times a Bib as (BD INSULIN day Medical SYRINGE Branch ULTRA-FINE) 1 mL 31 gauge x 5/16 Syrg insulin NPH 2020-0 Yes [id number] Take 66 [facility] (HUMULIN N 4-22 units SQ ity o f NPH U-100 00:00: AC [place] INSULIN) 00 breakfast Medica l 100 unit/mL and 24 Branch injection units SQ HS insulin 2020-0 Yes [id number] Take 32 [facility] vers regular 4-22 units SQ ity of human 00:00: AC [place] (HUMULIN R 00 breakfast Medi oscar REGULAR and 24 Branch U-100 units SQ INSULN) 100 AC supper unit/mL injection Insulin 2020- Yes [id number] Inject [facility] ers Syringe-Nee 4-22 insulin sq it y of dle U-100 00:00: 3 times a Bib as (BD INSULIN day Medical SYRINGE Branch ULTRA-FINE) 1 mL 31 gauge x 5/16 Syrg insulin NPH 2020- Yes [id number] Take 66 [facility] (HUMULIN N 4-22 units SQ ity o f NPH U-100 00:00: AC [place] INSULIN) 00 breakfast Medica l 100 unit/mL and 24 Branch injection units SQ HS insulin 2020- Yes [id number] Take 32 [facility] vers regular 4-22 units SQ ity of human 00:00: [facility] (HUMULIN R 00 breakfast Medi oscar REGULAR and 24 Branch U-100 units SQ INSULN) 100 AC supper unit/mL injection Insulin 2020- Yes [id number] Inject [facility] ers Syringe-Nee 4-22 insulin sq it y of dle U-100 00:00: 3 times a Bib as (BD INSULIN Medical SYRINGE Branch ULTRA-FINE) 1 mL 31 gauge x 5/16 Syrg insulin NPH 2020- Yes [id number] Take 66 [facility] (HUMULIN N 4-22 units SQ ity o f NPH U-100 00:00: AC [place] INSULIN) 00 breakfast Medica l 100 unit/mL and 24 Branch injection units SQ HS insulin 2020- Yes [id number] Take 32 [facility] vers regular 4-22 units SQ ity of human 00:00: [facility] (HUMULIN R 00 breakfast Medi oscar REGULAR and 24 Branch U-100 units SQ INSULN) 100 AC supper unit/mL injection Insulin 2020- Yes [id number] Inject [facility] ers Syringe-Nee 4-22 insulin sq it y of dle U-100 00:00: 3 times a Bib as (BD INSULIN day Medical SYRINGE Branch ULTRA-FINE) 1 mL 31 gauge x 5/16 Syrg insulin NPH 2020- Yes [id number] Take 66 [facility] (HUMULIN N 4-22 units SQ ity o f NPH U-100 00:00: [place] INSULIN) 00 breakfast Medica l 100 unit/mL and 24 Branch injection units SQ HS insulin 2021-0 Yes [id number] Take 32 [facility] vers regular 4-22 units SQ ity of human 00:00: [facility] (HUMULIN R 00 breakfast Medi oscar REGULAR and 24 Branch U-100 units SQ INSULN) 100 AC supper unit/mL injection Insulin 202-0 Yes [id number] Inject [facility] ers Syringe-Nee 4-22 insulin sq it y of dle U-100 00:00: 3 times a Bib as (BD INSULIN day Medical SYRINGE Branch ULTRA-FINE) 1 mL 31 gauge x 5/16 Syrg insulin NPH 2020-0 Yes [id number] Take 66 [facility] (HUMULIN N 4-22 units SQ ity o f NPH U-100 00:00: [facility] INSULIN) 00 breakfast Medica l 100 unit/mL and 24 Branch injection units SQ HS insulin 2020-0 Yes [id number] Take 32 [facility] vers regular 4-22 units SQ ity of human 00:00: [facility] (HUMULIN R 00 breakfast Medi oscar REGULAR and 24 Branch U-100 units SQ INSULN) 100 AC supper unit/mL injection Insulin 202-0 Yes [id number] Inject [facility] ers Syringe-Nee 4-22 insulin sq it y of dle U-100 00:00: 3 times a Bib as (BD INSULIN Medical SYRINGE Branch ULTRA-FINE) 1 mL 31 gauge x 5/16 Syrg insulin NPH 1-0 Yes [id number] Take 66 [facility] (HUMULIN N 4-22 units SQ ity o f NPH U-100 00:00: [place] INSULIN) 00 breakfast Medica l 100 unit/mL and 24 Branch injection units SQ HS insulin 2020-0 Yes [id number] Take 32 [facility] vers regular 4-22 units SQ ity of human 00:00: [facility] (HUMULIN R 00 breakfast Medi oscar REGULAR and 24 Branch U-100 units SQ INSULN) 100 AC supper unit/mL injection Insulin 2021-0 Yes [id number] Inject [facility] ers Syringe-Nee 4-22 insulin sq it y of dle U-100 00:00: 3 times a Bib as (BD INSULIN day Medical SYRINGE Branch ULTRA-FINE) 1 mL 31 gauge x 5/16 Syrg insulin NPH 2020-0 Yes [id number] Take 66 [facility] (HUMULIN N 4-22 units SQ ity o f NPH U-100 00:00: AC [place] INSULIN) 00 breakfast Medica l 100 unit/mL and 24 Branch injection units SQ HS insulin Yes [id number] Take 32 [facility] vers regular 4-22 units SQ ity of human 00:00: AC [place] (HUMULIN R 00 breakfast Medi ocsar REGULAR and 24 Branch U-100 units SQ INSULN) 100 AC supper unit/mL injection Insulin Yes [id number] Inject [facility] ers Syringe-Nee 4-22 insulin sq it y of dle U-100 00:00: 3 times a Bib as (BD INSULIN day Medical SYRINGE Branch ULTRA-FINE) 1 mL 31 gauge x 5/16 Syrg Blood-Gluco Yes [id number] Check U nivers se Meter 4-05 blood ity of (FREESTYLE 00:00: glucose 4x [place] LITE METER) 00 daily Medical Kit Branch Blood-Gluco Yes [id number] Check U nivers se Meter 4-05 blood ity of (FREESTYLE 00:00: glucose 4x [place] LITE METER) 00 daily Medical Kit Branch Blood-Gluco Yes [id number] Check U nivers se Meter 4-05 blood ity of (FREESTYLE 00:00: glucose 4x [place] LITE METER) 00 daily Medical Kit Branch Blood-Gluco Yes [id number] Check U nivers se Meter 4-05 blood ity of (FREESTYLE 00:00: glucose 4x [place] LITE METER) 00 daily Medical Kit Branch Blood-Gluco Yes [id number] Check U nivers se Meter 4-05 blood ity of (FREESTYLE 00:00: glucose 4x [place] LITE METER) 00 daily Medical Kit Branch Blood-Gluco Yes [id number] Check U nivers se Meter 4-05 blood ity of (FREESTYLE 00:00: glucose 4x [place] LITE METER) 00 daily Medical Kit Branch Blood-Gluco Yes [id number] Check U nivers se Meter 4-05 blood ity of (FREESTYLE 00:00: glucose 4x [place] LITE METER) 00 daily Medical Kit Branch Blood-Gluco Yes [id number] Check U nivers se Meter 4-05 blood ity of (FREESTYLE 00:00: glucose 4x [place] LITE METER) 00 daily Medical Kit Branch Blood-Gluco Yes [id number] Check U nivers se Meter 4-05 blood ity of (FREESTYLE 00:00: glucose 4x [place] LITE METER) 00 daily Medical Kit Branch Blood-Gluco Yes [id number] Check U nivers se Meter 4-05 blood ity of (FREESTYLE 00:00: glucose 4x [place] LITE METER) 00 daily Medical Kit Branch Blood-Gluco Yes [id number] Check U nivers se Meter 4-05 blood ity of (FREESTYLE 00:00: glucose 4x [place] LITE METER) 00 daily Medical Kit Branch Blood-Gluco Yes [id number] Check U nivers se Meter 4-05 blood ity of (FREESTYLE 00:00: glucose 4x [place] LITE METER) 00 daily Medical Kit Branch Blood-Gluco Yes [id number] Check U nivers se Meter 4-05 blood ity of (FREESTYLE 00:00: glucose 4x [place] LITE METER) 00 daily Medical Kit Branch Blood-Gluco Yes [id number] Check U nivers se Meter 4-05 blood ity of (FREESTYLE 00:00: glucose 4x [place] LITE METER) 00 daily Medical Kit Branch Blood-Gluco Yes [id number] Check U nivers se Meter 4-05 blood ity of (FREESTYLE 00:00: glucose 4x [place] LITE METER) 00 daily Medical Kit Branch Blood-Gluco Yes [id number] Check U nivers se Meter 4-05 blood ity of (FREESTYLE 00:00: glucose 4x [place] LITE METER) 00 daily Medical Kit Branch Blood-Gluco Yes [id number] Check U nivers se Meter 4-05 blood ity of (FREESTYLE 00:00: glucose 4x [place] LITE METER) 00 daily Medical Kit Branch Blood-Gluco Yes [id number] Check U nivers se Meter 4-05 blood ity of (FREESTYLE 00:00: glucose 4x [place] LITE METER) 00 daily Medical Kit Branch Blood-Gluco Yes [id number] Check U nivers se Meter 4-05 blood ity of (FREESTYLE 00:00: glucose 4x [place] LITE METER) 00 daily Medical Kit Branch Blood-Gluco Yes [id number] Check U nivers se Meter 4-05 blood ity of (FREESTYLE 00:00: glucose 4x [place] LITE METER) 00 daily Medical Kit Branch Blood-Gluco Yes [id number] Check U nivers se Meter 4-05 blood ity of (FREESTYLE 00:00: glucose 4x [place] LITE METER) 00 daily Medical Kit Branch Blood-Gluco Yes [id number] Check U nivers se Meter 4-05 blood ity of (FREESTYLE 00:00: glucose 4x [place] LITE METER) 00 daily Medical Kit Branch Blood-Gluco Yes [id number] Check U nivers se Meter 4-05 blood ity of (FREESTYLE 00:00: glucose 4x [place] LITE METER) 00 daily Medical Kit Branch Blood-Gluco Yes [id number] Check U nivers se Meter 4-05 blood ity of (FREESTYLE 00:00: glucose 4x [place] LITE METER) 00 daily Medical Kit Branch Blood-Gluco Yes [id number] Check U nivers se Meter 4-05 blood ity of (FREESTYLE 00:00: glucose 4x [place] LITE METER) 00 daily Medical Kit Branch Blood-Gluco Yes [id number] Check U nivers se Meter 4-05 blood ity of (FREESTYLE 00:00: glucose 4x [place] LITE METER) 00 daily Medical Kit Branch Blood-Gluco Yes [id number] Check U nivers se Meter 4-05 blood ity of (FREESTYLE 00:00: glucose 4x [place] LITE METER) 00 daily Medical Kit Branch blood sugar Yes [id number] Check U nivers diagnostic 3-23 blood ity of (FREESTYLE 00:00: glucose 4x [place] LITE 00 daily Medical STRIPS) Branch strip lancets 2021-0 Yes [id number] Check Unive rs (FREESTYLE 3-23 blood ity of LANCETS) 28 00:00: glucose 4x [place] gauge Misc 00 daily Medical Branch blood sugar 2020-0 Yes [id number] Check U nivers diagnostic 3-23 blood ity of (FREESTYLE 00:00: glucose 4x [place] LITE 00 daily Medical STRIPS) Branch strip lancets 2020-0 Yes [id number] Check Unive rs (FREESTYLE 3-23 blood ity of LANCETS) 28 00:00: glucose 4x [place] gauge Misc 00 daily Medical Branch blood sugar 0 Yes [id number] Check U nivers diagnostic 3-23 blood ity of (FREESTYLE 00:00: glucose 4x [place] LITE 00 daily Medical STRIPS) Branch strip lancets 2020-0 Yes [id number] Check Unive rs (FREESTYLE 3-23 blood ity of LANCETS) 28 00:00: glucose 4x [place] gauge Misc 00 daily Medical Branch blood sugar 2020-0 Yes [id number] Check U nivers diagnostic 3-23 blood ity of (FREESTYLE 00:00: glucose 4x [place] LITE 00 daily Medical STRIPS) Branch strip lancets 2020-0 Yes [id number] Check Unive rs (FREESTYLE 3-23 blood ity of LANCETS) 28 00:00: glucose 4x [place] gauge Misc 00 daily Medical Branch blood sugar 2020-0 Yes [id number] Check U nivers diagnostic 3-23 blood ity of (FREESTYLE 00:00: glucose 4x [place] LITE 00 daily Medical STRIPS) Branch strip lancets 2020-0 Yes [id number] Check Unive rs (FREESTYLE 3-23 blood ity of LANCETS) 28 00:00: glucose 4x [place] gauge Misc 00 daily Medical Branch blood sugar 2020-0 Yes [id number] Check U nivers diagnostic 3-23 blood ity of (FREESTYLE 00:00: glucose 4x [place] LITE 00 daily Medical STRIPS) Branch strip lancets 2020-0 Yes [id number] Check Unive rs (FREESTYLE 3-23 blood ity of LANCETS) 28 00:00: glucose 4x [place] gauge Misc 00 daily Medical Branch blood sugar 2020-0 Yes [id number] Check U nivers diagnostic 3-23 blood ity of (FREESTYLE 00:00: glucose 4x [place] LITE 00 daily Medical STRIPS) Branch strip lancets 2020-0 Yes [id number] Check Unive rs (FREESTYLE 3-23 blood ity of LANCETS) 28 00:00: glucose 4x [place] gauge Misc 00 daily Medical Branch blood sugar 2020-0 Yes [id number] Check U nivers diagnostic 3-23 blood ity of (FREESTYLE 00:00: glucose 4x [place] LITE 00 daily Medical STRIPS) Branch strip lancets 2020-0 Yes [id number] Check Unive rs (FREESTYLE 3-23 blood ity of LANCETS) 28 00:00: glucose 4x [place] gauge Misc 00 daily Medical Branch blood sugar 2020-0 Yes [id number] Check U nivers diagnostic 3-23 blood ity of (FREESTYLE 00:00: glucose 4x [place] LITE 00 daily Medical STRIPS) Branch strip lancets 2020-0 Yes [id number] Check Unive rs (FREESTYLE 3-23 blood ity of LANCETS) 28 00:00: glucose 4x [place] gauge Misc 00 daily Medical Branch blood sugar 2020-0 Yes [id number] Check U nivers diagnostic 3-23 blood ity of (FREESTYLE 00:00: glucose 4x [place] LITE 00 daily Medical STRIPS) Branch strip lancets 2020-0 Yes [id number] Check Unive rs (FREESTYLE 3-23 blood ity of LANCETS) 28 00:00: glucose 4x [place] gauge Misc 00 daily Medical Branch blood sugar 2020-0 Yes [id number] Check U nivers diagnostic 3-23 blood ity of (FREESTYLE 00:00: glucose 4x [place] LITE 00 daily Medical STRIPS) Branch strip lancets 2020-0 Yes [id number] Check Unive rs (FREESTYLE 3-23 blood ity of LANCETS) 28 00:00: glucose 4x [place] gauge Misc 00 daily Medical Branch blood sugar 2020-0 Yes [id number] Check U nivers diagnostic 3-23 blood ity of (FREESTYLE 00:00: glucose 4x [place] LITE 00 daily Medical STRIPS) Branch strip lancets 2020-0 Yes [id number] Check Unive rs (FREESTYLE 3-23 blood ity of LANCETS) 28 00:00: glucose 4x [place] gauge Misc 00 daily Medical Branch blood sugar 2020-0 Yes [id number] Check U nivers diagnostic 3-23 blood ity of (FREESTYLE 00:00: glucose 4x [place] LITE 00 daily Medical STRIPS) Branch strip lancets 2020-0 Yes [id number] Check Unive rs (FREESTYLE 3-23 blood ity of LANCETS) 28 00:00: glucose 4x [place] gauge Misc 00 daily Medical Branch blood sugar 2020-0 Yes [id number] Check U nivers diagnostic 3-23 blood ity of (FREESTYLE 00:00: glucose 4x [place] LITE 00 daily Medical STRIPS) Branch strip lancets 2020-0 Yes [id number] Check Unive rs (FREESTYLE 3-23 blood ity of LANCETS) 28 00:00: glucose 4x [place] gauge Misc 00 daily Medical Branch blood sugar 2020-0 Yes [id number] Check U nivers diagnostic 3-23 blood ity of (FREESTYLE 00:00: glucose 4x [place] LITE 00 daily Medical STRIPS) Branch strip lancets 2020-0 Yes [id number] Check Unive rs (FREESTYLE 3-23 blood ity of LANCETS) 28 00:00: glucose 4x [place] gauge Misc 00 daily Medical Branch blood sugar 2020-0 Yes [id number] Check U nivers diagnostic 3-23 blood ity of (FREESTYLE 00:00: glucose 4x [place] LITE 00 daily Medical STRIPS) Branch strip lancets 2020-0 Yes [id number] Check Unive rs (FREESTYLE 3-23 blood ity of LANCETS) 28 00:00: glucose 4x [place] gauge Misc 00 daily Medical Branch blood sugar 2020-0 Yes [id number] Check U nivers diagnostic 3-23 blood ity of (FREESTYLE 00:00: glucose 4x [place] LITE 00 daily Medical STRIPS) Branch strip lancets 2020-0 Yes [id number] Check Unive rs (FREESTYLE 3-23 blood ity of LANCETS) 28 00:00: glucose 4x [place] gauge Misc 00 daily Medical Branch blood sugar 2020-0 Yes [id number] Check U nivers diagnostic 3-23 blood ity of (FREESTYLE 00:00: glucose 4x [place] LITE 00 daily Medical STRIPS) Branch strip lancets 2020-0 Yes [id number] Check Unive rs (FREESTYLE 3-23 blood ity of LANCETS) 28 00:00: glucose 4x [place] gauge Misc 00 daily Medical Branch blood sugar 2020-0 Yes [id number] Check U nivers diagnostic 3-23 blood ity of (FREESTYLE 00:00: glucose 4x [place] LITE 00 daily Medical STRIPS) Branch strip lancets 2020-0 Yes [id number] Check Unive rs (FREESTYLE 3-23 blood ity of LANCETS) 28 00:00: glucose 4x [place] gauge Misc 00 daily Medical Branch blood sugar 2020-0 Yes [id number] Check U nivers diagnostic 3-23 blood ity of (FREESTYLE 00:00: glucose 4x [place] LITE 00 daily Medical STRIPS) Branch strip lancets 2020-0 Yes [id number] Check Unive rs (FREESTYLE 3-23 blood ity of LANCETS) 28 00:00: glucose 4x [place] gauge Misc 00 daily Medical Branch blood sugar 2020-0 Yes [id number] Check U nivers diagnostic 3-23 blood ity of (FREESTYLE 00:00: glucose 4x [place] LITE 00 daily Medical STRIPS) Branch strip lancets 2020-0 Yes [id number] Check Unive rs (FREESTYLE 3-23 blood ity of LANCETS) 28 00:00: glucose 4x [place] gauge Misc 00 daily Medical Branch blood sugar 2020-0 Yes [id number] Check U nivers diagnostic 3-23 blood ity of (FREESTYLE 00:00: glucose 4x [place] LITE 00 daily Medical STRIPS) Branch strip lancets 2020-0 Yes [id number] Check Unive rs (FREESTYLE 3-23 blood ity of LANCETS) 28 00:00: glucose 4x [place] gauge Misc 00 daily Medical Branch blood sugar 2020-0 Yes [id number] Check U nivers diagnostic 3-23 blood ity of (FREESTYLE 00:00: glucose 4x [place] LITE 00 daily Medical STRIPS) Branch strip Blood-Gluco 2020-0 Yes [id number] Check U nivers se Meter 3-23 blood ity of (FREESTYLE 00:00: glucose 4x [place] LITE METER) 00 daily Medical Kit Branch lancets Yes [id number] Check Unive rs (FREESTYLE 3-23 blood ity of LANCETS) 28 00:00: glucose 4x [place] gauge Misc 00 daily Medical Branch blood sugar 0 Yes [id number] Check U nivers diagnostic 3-23 blood ity of (FREESTYLE 00:00: glucose 4x [place] LITE 00 daily Medical STRIPS) Branch strip Blood-Gluco Yes [id number] Check U nivers se Meter 3-23 blood ity of (FREESTYLE 00:00: glucose 4x [place] LITE METER) 00 daily Medical Kit Branch lancets Yes [id number] Check Unive rs (FREESTYLE 3-23 blood ity of LANCETS) 28 00:00: glucose 4x [place] gauge Misc daily Medical Branch blood sugar 0 Yes [id number] Check U nivers diagnostic 3-23 blood ity of (FREESTYLE 00:00: glucose 4x [place] LITE 00 daily Medical STRIPS) Branch strip Blood-Gluco Yes [id number] Check U nivers se Meter 3-23 blood ity of (FREESTYLE 00:00: glucose 4x [place] LITE METER) 00 daily Medical Kit Branch lancets Yes [id number] Check Unive rs (FREESTYLE 3-23 blood ity of LANCETS) 28 00:00: glucose 4x [place] gauge Misc daily Medical Branch blood sugar 0 Yes [id number] Check U nivers diagnostic 3-23 blood ity of (FREESTYLE 00:00: glucose 4x [place] LITE 00 daily Medical STRIPS) Branch strip Blood-Gluco Yes [id number] Check U nivers se Meter 3-23 blood ity of (FREESTYLE 00:00: glucose 4x [place] LITE METER) 00 daily Medical Kit Branch lancets 0 Yes [id number] Check Unive rs (FREESTYLE 3-23 blood ity of LANCETS) 28 00:00: glucose 4x [place] gauge Misc daily Medical Branch blood sugar 0 Yes [id number] Check U nivers diagnostic 3-23 blood ity of (FREESTYLE 00:00: glucose 4x [place] LITE 00 daily Medical STRIPS) Branch strip lancets 0 Yes [id number] Check Unive rs (FREESTYLE 3-23 blood ity of LANCETS) 28 00:00: glucose 4x [place] gauge Misc 00 daily Medical Branch blood sugar 2020-0 Yes [id number] Check U nivers diagnostic 3-23 blood ity of (FREESTYLE 00:00: glucose 4x [place] LITE 00 daily Medical STRIPS) Branch strip lancets 2020-0 Yes [id number] Check Unive rs (FREESTYLE 3-23 blood ity of LANCETS) 28 00:00: glucose 4x [place] gauge Misc 00 daily Medical Branch blood sugar 2020-0 Yes [id number] Check U nivers diagnostic 3-23 blood ity of (FREESTYLE 00:00: glucose 4x [place] LITE 00 daily Medical STRIPS) Branch strip lancets 2020-0 Yes [id number] Check Unive rs (FREESTYLE 3-23 blood ity of LANCETS) 28 00:00: glucose 4x [place] gauge Misc 00 daily Medical Branch blood sugar 2020-0 Yes [id number] Check U nivers diagnostic 3-23 blood ity of (FREESTYLE 00:00: glucose 4x [place] LITE 00 daily Medical STRIPS) Branch strip lancets 2020-0 Yes [id number] Check Unive rs (FREESTYLE 3-23 blood ity of LANCETS) 28 00:00: glucose 4x [place] gauge Misc 00 daily Medical Branch blood sugar 2020-0 Yes [id number] Check U nivers diagnostic 3-23 blood ity of (FREESTYLE 00:00: glucose 4x [place] LITE 00 daily Medical STRIPS) Branch strip lancets 2020-0 Yes [id number] Check Unive rs (FREESTYLE 3-23 blood ity of LANCETS) 28 00:00: glucose 4x [place] gauge Misc 00 daily Medical Branch Blood-Gluco 2020-0 2020- No [id number] Check Univers se Meter 3-23 04-05 blood ity of (FREESTYLE 00:00: 00:00 glucose 4x [place] LITE METER) 00 :00 daily Medical Kit Branch Blood-Gluco 0 2020- No [id number] Check [facility] se Meter 3-23 04-05 blood ity of (FREESTYLE 00:00: 00:00 glucose 4x [place] LITE METER) 00 :00 daily Medical Kit [place] Blood-Gluco 2020- No [id number] Check Univers se Meter 3-23 04-05 blood ity of (FREESTYLE 00:00: 00:00 glucose 4x [place] LITE METER) 00 :00 daily [facility] maalox:diph 2020- No 15mL 15 mL, Uni vers enhydrAMINE 11-13 Oral, ity of :lidocaine 08:45: 07:51 ONCE, 1 Bib as 2 % viscous 00 :00 dose, [facility] Med ical 1:1:1 11/13/20 at [place] (FIRST-MOUT 0245, HWASH BLM) Routine oral suspension 15 mL metoclopram No 10mg 10 mg, Uni vers peggy HCl 11-13 Slow IV ity of (REGLAN) 07:45: 06:52 Push, [place] injection 00 :00 ONCE, 1 Medical 10 mg dose, [facility] 11/13/20 at 0145, JOHN NaCl 0.9% 2020- No 1000mL at 999 Uni vers (NS) bolus 11-13 mL/hr, ity of infusion 07:45: 08:41 1,000 mL, Bib as 1,000 mL 00 :00 IV Medical Infusion, [place] ONCE, 1 dose, [facility] 11/13/20 at 0145, STAT sucralfate Yes [id number] 1g Take 1 U nivers 1 gram 1-07 tablet by ity of tablet 00:00: mouth [place] 00 before Medical meals and Branch at bedtime. ranitidine 0 Yes [id number] 150mg Take 1 Univers (ZANTAC) 1-07 tablet by ity of 150 mg 00:00: mouth 2 [place] tablet 00 (two) Medical times Branch daily. sucralfate 2020-0 Yes [id number] 1g Take 1 U nivers 1 gram 1-07 tablet by ity of tablet 00:00: mouth [place] 00 before Medical meals and Branch at bedtime. ranitidine 0 Yes [id number] 150mg Take 1 [facility] (ZANTAC) 1-07 tablet by ity of 150 mg 00:00: mouth 2 [place] tablet 00 (two) Medical times Branch daily. sucralfate 2020-0 Yes [id number] 1g Take 1 U nivers 1 gram 1-07 tablet by ity of tablet 00:00: mouth [place] 00 before Medical meals and Branch at bedtime. ranitidine 2020-0 Yes [id number] 150mg Take 1 [facility] (ZANTAC) 1-07 tablet by ity of 150 mg 00:00: mouth 2 [place] tablet 00 (two) Medical times Branch daily. sucralfate 2020-0 Yes [id number] 1g Take 1 U nivers 1 gram 1-07 tablet by ity of tablet 00:00: mouth [place] 00 before Medical meals and Branch at bedtime. ranitidine 2020-0 Yes [id number] 150mg Take 1 [facility] (ZANTAC) 1-07 tablet by ity of 150 mg 00:00: mouth 2 [place] tablet 00 (two) Medical times Branch daily. sucralfate 2020-0 Yes [id number] 1g Take 1 U nivers 1 gram 1-07 tablet by ity of tablet 00:00: mouth [place] 00 before Medical meals and Branch at bedtime. ranitidine 2020-0 Yes [id number] 150mg Take 1 [facility] (ZANTAC) 1-07 tablet by ity of 150 mg 00:00: mouth 2 [place] tablet 00 (two) Medical times Branch daily. sucralfate 2020-0 Yes [id number] 1g Take 1 U nivers 1 gram 1-07 tablet by ity of tablet 00:00: mouth [place] 00 before Medical meals and Branch at bedtime. ranitidine 2020-0 Yes [id number] 150mg Take 1 [facility] (ZANTAC) 1-07 tablet by ity of 150 mg 00:00: mouth 2 [place] tablet 00 (two) Medical times Branch daily. sucralfate 2020-0 Yes [id number] 1g Take 1 U nivers 1 gram 1-07 tablet by ity of tablet 00:00: mouth [place] 00 before Medical meals and Branch at bedtime. ranitidine 2020-0 Yes [id number] 150mg Take 1 [facility] (ZANTAC) 1-07 tablet by ity of 150 mg 00:00: mouth 2 [place] tablet 00 (two) Medical times Branch daily. sucralfate 2020-0 Yes [id number] 1g Take 1 U nivers 1 gram 1-07 tablet by ity of tablet 00:00: mouth [place] 00 before Medical meals and Branch at bedtime. ranitidine 2020-0 Yes [id number] 150mg Take 1 [facility] (ZANTAC) 1-07 tablet by ity of 150 mg 00:00: mouth 2 [place] tablet 00 (two) Medical times Branch daily. sucralfate 2020-0 Yes [id number] 1g Take 1 U nivers 1 gram 1-07 tablet by ity of tablet 00:00: mouth [place] 00 before Medical meals and Branch at bedtime. ranitidine 2020-0 Yes [id number] 150mg Take 1 [facility] (ZANTAC) 1-07 tablet by ity of 150 mg 00:00: mouth 2 [place] tablet 00 (two) Medical times Branch daily. sucralfate 2020-0 Yes [id number] 1g Take 1 U nivers 1 gram 1-07 tablet by ity of tablet 00:00: mouth [place] 00 before Medical meals and Branch at bedtime. ranitidine 2020-0 Yes [id number] 150mg Take 1 [facility] (ZANTAC) 1-07 tablet by ity of 150 mg 00:00: mouth 2 [place] tablet 00 (two) Medical times Branch daily. sucralfate 2020-0 Yes [id number] 1g Take 1 U nivers 1 gram 1-07 tablet by ity of tablet 00:00: mouth [place] 00 before Medical meals and Branch at bedtime. ranitidine 2020-0 Yes [id number] 150mg Take 1 [facility] (ZANTAC) 1-07 tablet by ity of 150 mg 00:00: mouth 2 [place] tablet 00 (two) Medical times Branch daily. sucralfate 2020-0 Yes [id number] 1g Take 1 U nivers 1 gram 1-07 tablet by ity of tablet 00:00: mouth [place] 00 before Medical meals and Branch at bedtime. ranitidine 2020-0 Yes [id number] 150mg Take 1 Univers (ZANTAC) 1-07 tablet by ity of 150 mg 00:00: mouth 2 [place] tablet 00 (two) Medical times Branch daily. sucralfate 2020-0 Yes [id number] 1g Take 1 U nivers 1 gram 1-07 tablet by ity of tablet 00:00: mouth [place] 00 before Medical meals and Branch at bedtime. ranitidine 2020-0 Yes [id number] 150mg Take 1 Univers (ZANTAC) 1-07 tablet by ity of 150 mg 00:00: mouth 2 [place] tablet 00 (two) Medical times Branch daily. sucralfate 2020-0 Yes [id number] 1g Take 1 U nivers 1 gram 1-07 tablet by ity of tablet 00:00: mouth [place] 00 before Medical meals and Branch at bedtime. ranitidine 2020-0 Yes [id number] 150mg Take 1 [facility] (ZANTAC) 1-07 tablet by ity of 150 mg 00:00: mouth 2 [place] tablet 00 (two) Medical times Branch daily. sucralfate 2020-0 Yes [id number] 1g Take 1 U nivers 1 gram 1-07 tablet by ity of tablet 00:00: mouth [place] 00 before Medical meals and Branch at bedtime. ranitidine 2020-0 Yes [id number] 150mg Take 1 [facility] (ZANTAC) 1-07 tablet by ity of 150 mg 00:00: mouth 2 [place] tablet 00 (two) Medical times Branch daily. sucralfate 2020-0 Yes [id number] 1g Take 1 U nivers 1 gram 1-07 tablet by ity of tablet 00:00: mouth [place] 00 before Medical meals and Branch at bedtime. ranitidine 2020-0 Yes [id number] 150mg Take 1 [facility] (ZANTAC) 1-07 tablet by ity of 150 mg 00:00: mouth 2 [place] tablet 00 (two) Medical times Branch daily. sucralfate 2020-0 Yes [id number] 1g Take 1 U nivers 1 gram 1-07 tablet by ity of tablet 00:00: mouth [place] 00 before Medical meals and Branch at bedtime. ranitidine 2020-0 Yes [id number] 150mg Take 1 [facility] (ZANTAC) 1-07 tablet by ity of 150 mg 00:00: mouth 2 [place] tablet 00 (two) Medical times Branch daily. sucralfate 2020-0 Yes [id number] 1g Take 1 U nivers 1 gram 1-07 tablet by ity of tablet 00:00: mouth [place] 00 before Medical meals and Branch at bedtime. ranitidine 2020-0 Yes [id number] 150mg Take 1 [facility] (ZANTAC) 1-07 tablet by ity of 150 mg 00:00: mouth 2 [place] tablet 00 (two) Medical times Branch daily. sucralfate 2020-0 Yes [id number] 1g Take 1 U nivers 1 gram 1-07 tablet by ity of tablet 00:00: mouth [place] 00 before Medical meals and Branch at bedtime. ranitidine 2020-0 Yes [id number] 150mg Take 1 [facility] (ZANTAC) 1-07 tablet by ity of 150 mg 00:00: mouth 2 [place] tablet 00 (two) Medical times Branch daily. sucralfate 2020-0 Yes [id number] 1g Take 1 U nivers 1 gram 1-07 tablet by ity of tablet 00:00: mouth [place] 00 before Medical meals and Branch at bedtime. ranitidine 2020-0 Yes [id number] 150mg Take 1 [facility] (ZANTAC) 1-07 tablet by ity of 150 mg 00:00: mouth 2 [place] tablet 00 (two) Medical times Branch daily. sucralfate 2020-0 Yes [id number] 1g Take 1 U nivers 1 gram 1-07 tablet by ity of tablet 00:00: mouth [place] 00 before Medical meals and Branch at bedtime. ranitidine 2020-0 Yes [id number] 150mg Take 1 [facility] (ZANTAC) 1-07 tablet by ity of 150 mg 00:00: mouth 2 [place] tablet 00 (two) Medical times Branch daily. sucralfate 2020-0 Yes [id number] 1g Take 1 U nivers 1 gram 1-07 tablet by ity of tablet 00:00: mouth [place] 00 before Medical meals and Branch at bedtime. ranitidine 2020-0 Yes [id number] 150mg Take 1 [facility] (ZANTAC) 1-07 tablet by ity of 150 mg 00:00: mouth 2 [place] tablet 00 (two) Medical times Branch daily. sucralfate 2020-0 Yes [id number] 1g Take 1 U nivers 1 gram 1-07 tablet by ity of tablet 00:00: mouth [place] 00 before Medical meals and Branch at bedtime. ranitidine 2020-0 Yes [id number] 150mg Take 1 [facility] (ZANTAC) 1-07 tablet by ity of 150 mg 00:00: mouth 2 [place] tablet 00 (two) Medical times Branch daily. sucralfate 2020-0 Yes [id number] 1g Take 1 U nivers 1 gram 1-07 tablet by ity of tablet 00:00: mouth [place] 00 before Medical meals and Branch at bedtime. ranitidine 2020-0 Yes [id number] 150mg Take 1 [facility] (ZANTAC) 1-07 tablet by ity of 150 mg 00:00: mouth 2 [place] tablet 00 (two) Medical times Branch daily. sucralfate 2020-0 Yes [id number] 1g Take 1 U nivers 1 gram 1-07 tablet by ity of tablet 00:00: mouth [place] 00 before Medical meals and Branch at bedtime. ranitidine 2020-0 Yes [id number] 150mg Take 1 [facility] (ZANTAC) 1-07 tablet by ity of 150 mg 00:00: mouth 2 [place] tablet 00 (two) Medical times Branch daily. sucralfate 2020-0 Yes [id number] 1g Take 1 U nivers 1 gram 1-07 tablet by ity of tablet 00:00: mouth [place] 00 before Medical meals and Branch at bedtime. ranitidine 2020-0 Yes [id number] 150mg Take 1 [facility] (ZANTAC) 1-07 tablet by ity of 150 mg 00:00: mouth 2 [place] tablet 00 (two) Medical times Branch daily. sucralfate 2020-0 Yes [id number] 1g Take 1 U nivers 1 gram 1-07 tablet by ity of tablet 00:00: mouth [place] 00 before Medical meals and Branch at bedtime. ranitidine 2020-0 Yes [id number] 150mg Take 1 [facility] (ZANTAC) 1-07 tablet by ity of 150 mg 00:00: mouth 2 [place] tablet 00 (two) Medical times Branch daily. sucralfate 2020-0 Yes [id number] 1g Take 1 U nivers 1 gram 1-07 tablet by ity of tablet 00:00: mouth [place] 00 before Medical meals and Branch at bedtime. ranitidine 2020-0 Yes [id number] 150mg Take 1 [facility] (ZANTAC) 1-07 tablet by ity of 150 mg 00:00: mouth 2 [place] tablet 00 (two) Medical times Branch daily. sucralfate 2020-0 Yes [id number] 1g Take 1 U nivers 1 gram 1-07 tablet by ity of tablet 00:00: mouth [place] 00 before Medical meals and Branch at bedtime. ranitidine 2020-0 Yes [id number] 150mg Take 1 [facility] (ZANTAC) 1-07 tablet by ity of 150 mg 00:00: mouth 2 [place] tablet 00 (two) Medical times Branch daily. sucralfate 2020-0 Yes [id number] 1g Take 1 U nivers 1 gram 1-07 tablet by ity of tablet 00:00: mouth [place] 00 before Medical meals and Branch at bedtime. ranitidine 2020-0 Yes [id number] 150mg Take 1 [facility] (ZANTAC) 1-07 tablet by ity of 150 mg 00:00: mouth 2 [place] tablet 00 (two) Medical times Branch daily. sucralfate 2020-0 Yes [id number] 1g Take 1 U nivers 1 gram 1-07 tablet by ity of tablet 00:00: mouth [place] 00 before Medical meals and Branch at bedtime. ranitidine 2020-0 Yes [id number] 150mg Take 1 [facility] (ZANTAC) 1-07 tablet by ity of 150 mg 00:00: mouth 2 [place] tablet 00 (two) Medical times Branch daily. sucralfate 2020-0 Yes [id number] 1g Take 1 U nivers 1 gram 1-07 tablet by ity of tablet 00:00: mouth [place] 00 before Medical meals and Branch at bedtime. ranitidine 2020-0 Yes [id number] 150mg Take 1 [facility] (ZANTAC) 1-07 tablet by ity of 150 mg 00:00: mouth 2 [place] tablet 00 (two) Medical times Branch daily. sucralfate 2020-0 Yes [id number] 1g Take 1 U nivers 1 gram 1-07 tablet by ity of tablet 00:00: mouth [place] 00 before Medical meals and Branch at bedtime. ranitidine 2020-0 Yes [id number] 150mg Take 1 [facility] (ZANTAC) 1-07 tablet by ity of 150 mg 00:00: mouth 2 [place] tablet 00 (two) Medical times Branch daily. sucralfate 2020-0 Yes [id number] 1g Take 1 U nivers 1 gram 1-07 tablet by ity of tablet 00:00: mouth [place] 00 before Medical meals and Branch at bedtime. ranitidine 2021-0 Yes [id number] 150mg Take 1 [facility] (ZANTAC) 1-07 tablet by ity of 150 mg 00:00: mouth 2 [place] tablet 00 (two) Medical times Branch daily. sucralfate 2020-0 Yes [id number] 1g Take 1 U nivers 1 gram 1-07 tablet by ity of tablet 00:00: mouth [place] 00 before Medical meals and Branch at bedtime. ranitidine 2020-0 Yes [id number] 150mg Take 1 [facility] (ZANTAC) 1-07 tablet by ity of 150 mg 00:00: mouth 2 [place] tablet 00 (two) Medical times Branch daily. sucralfate 2020-0 Yes [id number] 1g Take 1 U nivers 1 gram 1-07 tablet by ity of tablet 00:00: mouth [place] 00 before Medical meals and Branch at bedtime. ranitidine 2020-0 Yes [id number] 150mg Take 1 [facility] (ZANTAC) 1-07 tablet by ity of 150 mg 00:00: mouth 2 [place] tablet 00 (two) Medical times Branch daily. sucralfate 2020-0 Yes [id number] 1g Take 1 U nivers 1 gram 1-07 tablet by ity of tablet 00:00: mouth [place] 00 before Medical meals and Branch at bedtime. ranitidine 2020-0 Yes [id number] 150mg Take 1 [facility] (ZANTAC) 1-07 tablet by ity of 150 mg 00:00: mouth 2 [place] tablet 00 (two) Medical times Branch daily. sucralfate 2020-0 Yes [id number] 1g Take 1 U nivers 1 gram 1-07 tablet by ity of tablet 00:00: mouth [place] 00 before Medical meals and Branch at bedtime. ranitidine 2020-0 Yes [id number] 150mg Take 1 [facility] (ZANTAC) 1-07 tablet by ity of 150 mg 00:00: mouth 2 [place] tablet 00 (two) Medical times Branch daily. sucralfate 2020-0 Yes [id number] 1g Take 1 U nivers 1 gram 1-07 tablet by ity of tablet 00:00: mouth [place] 00 before Medical meals and Branch at bedtime. ranitidine 2020-0 Yes [id number] 150mg Take 1 [facility] (ZANTAC) 1-07 tablet by ity of 150 mg 00:00: mouth 2 [place] tablet 00 (two) Medical times Branch daily. sucralfate 2020-0 Yes [id number] 1g Take 1 U nivers 1 gram 1-07 tablet by ity of tablet 00:00: mouth [place] 00 before Medical meals and Branch at bedtime. ranitidine 2020-0 Yes [id number] 150mg Take 1 [facility] (ZANTAC) 1-07 tablet by ity of 150 mg 00:00: mouth 2 [place] tablet 00 (two) Medical times Branch daily. sucralfate 2020-0 Yes [id number] 1g Take 1 U nivers 1 gram 1-07 tablet by ity of tablet 00:00: mouth [place] 00 before Medical meals and Branch at bedtime. ranitidine 2020-0 Yes [id number] 150mg Take 1 [facility] (ZANTAC) 1-07 tablet by ity of 150 mg 00:00: mouth 2 [place] tablet 00 (two) Medical times Branch daily. sucralfate 2020-0 Yes [id number] 1g Take 1 U nivers 1 gram 1-07 tablet by ity of tablet 00:00: mouth [place] 00 before Medical meals and Branch at bedtime. ranitidine 2020-0 Yes [id number] 150mg Take 1 [facility] (ZANTAC) 1-07 tablet by ity of 150 mg 00:00: mouth 2 [place] tablet 00 (two) Medical times Branch daily. sucralfate 2020-0 Yes [id number] 1g Take 1 U nivers 1 gram 1-07 tablet by ity of tablet 00:00: mouth [place] 00 before Medical meals and Branch at bedtime. ranitidine 2020-0 Yes [id number] 150mg Take 1 [facility] (ZANTAC) 1-07 tablet by ity of 150 mg 00:00: mouth 2 [place] tablet 00 (two) Medical times Branch daily. sucralfate 2020-0 Yes [id number] 1g Take 1 U nivers 1 gram 1-07 tablet by ity of tablet 00:00: mouth [place] 00 before Medical meals and Branch at bedtime. ranitidine 2020-0 Yes [id number] 150mg Take 1 [facility] (ZANTAC) 1-07 tablet by ity of 150 mg 00:00: mouth 2 [place] tablet 00 (two) Medical times Branch daily. PNV 67-iron 2020-1 Yes [id number] 1{each} Take 1 [facility] ps-folate 2-11 Each by ity of no.1-dha 00:00: mouth [place] (VITAFOL 00 daily. Medical ULTRA) 29 Branch mg iron- 1 mg-200 mg Cap PNV 67-iron 2020-1 Yes [id number] 1{each} Take 1 [facility] ps-folate 2-11 Each by ity of no.1-dha 00:00: mouth [place] (VITAFOL 00 daily. Medical ULTRA) 29 Branch mg iron- 1 mg-200 mg Cap PNV 67-iron 2020-1 Yes [id number] 1{each} Take 1 [facility] ps-folate 2-11 Each by ity of no.1-dha 00:00: mouth [place] (VITAFOL 00 daily. Medical ULTRA) 29 Branch mg iron- 1 mg-200 mg Cap PNV 67-iron 2020-1 Yes [id number] 1{each} Take 1 [facility] ps-folate 2-11 Each by ity of no.1-dha 00:00: mouth [place] (VITAFOL 00 daily. Medical ULTRA) 29 Branch mg iron- 1 mg-200 mg Cap PNV 67-iron 2020-1 Yes [id number] 1{each} Take 1 [facility] ps-folate 2-11 Each by ity of no.1-dha 00:00: mouth [place] (VITAFOL 00 daily. Medical ULTRA) 29 Branch mg iron- 1 mg-200 mg Cap PNV 67-iron 2020-1 Yes [id number] 1{each} Take 1 [facility] ps-folate 2-11 Each by ity of no.1-dha 00:00: mouth [place] (VITAFOL 00 daily. Medical ULTRA) 29 Branch mg iron- 1 mg-200 mg Cap PNV 67-iron 2020-1 Yes [id number] 1{each} Take 1 [facility] ps-folate 2-11 Each by ity of no.1-dha 00:00: mouth [place] (VITAFOL 00 daily. Medical ULTRA) 29 Branch mg iron- 1 mg-200 mg Cap PNV 67-iron 2020-1 Yes [id number] 1{each} Take 1 [facility] ps-folate 2-11 Each by ity of no.1-dha 00:00: mouth [place] (VITAFOL 00 daily. Medical ULTRA) 29 Branch mg iron- 1 mg-200 mg Cap PNV 67-iron 2020-1 Yes [id number] 1{each} Take 1 [facility] ps-folate 2-11 Each by ity of no.1-dha 00:00: mouth [place] (VITAFOL 00 daily. Medical ULTRA) 29 Branch mg iron- 1 mg-200 mg Cap PNV 67-iron 2020-1 Yes [id number] 1{each} Take 1 [facility] ps-folate 2-11 Each by ity of no.1-dha 00:00: mouth [place] (VITAFOL 00 daily. Medical ULTRA) 29 Branch mg iron- 1 mg-200 mg Cap PNV 67-iron 2020-1 Yes [id number] 1{each} Take 1 [facility] ps-folate 2-11 Each by ity of no.1-dha 00:00: mouth [place] (VITAFOL 00 daily. Medical ULTRA) 29 Branch mg iron- 1 mg-200 mg Cap PNV 67-iron 2020-1 Yes [id number] 1{each} Take 1 [facility] ps-folate 2-11 Each by ity of no.1-dha 00:00: mouth [place] (VITAFOL 00 daily. Medical ULTRA) 29 Branch mg iron- 1 mg-200 mg Cap PNV 67-iron 2020-1 Yes [id number] 1{each} Take 1 [facility] ps-folate 2-11 Each by ity of no.1-dha 00:00: mouth [place] (VITAFOL 00 daily. Medical ULTRA) 29 Branch mg iron- 1 mg-200 mg Cap PNV 67-iron 2020-1 Yes [id number] 1{each} Take 1 [facility] ps-folate 2-11 Each by ity of no.1-dha 00:00: mouth [place] (VITAFOL 00 daily. Medical ULTRA) 29 Branch mg iron- 1 mg-200 mg Cap PNV 67-iron 2020-1 Yes [id number] 1{each} Take 1 [facility] ps-folate 2-11 Each by ity of no.1-dha 00:00: mouth [place] (VITAFOL 00 daily. Medical ULTRA) 29 Branch mg iron- 1 mg-200 mg Cap PNV 67-iron 2020-1 Yes [id number] 1{each} Take 1 [facility] ps-folate 2-11 Each by ity of no.1-dha 00:00: mouth [place] (VITAFOL 00 daily. Medical ULTRA) 29 Branch mg iron- 1 mg-200 mg Cap PNV 67-iron 2020-1 Yes [id number] 1{each} Take 1 [facility] ps-folate 2-11 Each by ity of no.1-dha 00:00: mouth [place] (VITAFOL 00 daily. Medical ULTRA) 29 Branch mg iron- 1 mg-200 mg Cap PNV 67-iron 2020-1 Yes [id number] 1{each} Take 1 [facility] ps-folate 2-11 Each by ity of no.1-dha 00:00: mouth [place] (VITAFOL 00 daily. Medical ULTRA) 29 Branch mg iron- 1 mg-200 mg Cap PNV 67-iron 2020-1 Yes [id number] 1{each} Take 1 [facility] ps-folate 2-11 Each by ity of no.1-dha 00:00: mouth [place] (VITAFOL 00 daily. Medical ULTRA) 29 Branch mg iron- 1 mg-200 mg Cap PNV 67-iron 2020-1 Yes [id number] 1{each} Take 1 [facility] ps-folate 2-11 Each by ity of no.1-dha 00:00: mouth [place] (VITAFOL 00 daily. Medical ULTRA) 29 Branch mg iron- 1 mg-200 mg Cap PNV 67-iron 2020-1 Yes [id number] 1{each} Take 1 [facility] ps-folate 2-11 Each by ity of no.1-dha 00:00: mouth [place] (VITAFOL 00 daily. Medical ULTRA) 29 Branch mg iron- 1 mg-200 mg Cap PNV 67-iron 2020-1 Yes [id number] 1{each} Take 1 [facility] ps-folate 2-11 Each by ity of no.1-dha 00:00: mouth [place] (VITAFOL 00 daily. Medical ULTRA) 29 Branch mg iron- 1 mg-200 mg Cap PNV 67-iron 2020-1 Yes [id number] 1{each} Take 1 [facility] ps-folate 2-11 Each by ity of no.1-dha 00:00: mouth [place] (VITAFOL 00 daily. Medical ULTRA) 29 Branch mg iron- 1 mg-200 mg Cap PNV 67-iron 2020-1 Yes [id number] 1{each} Take 1 [facility] ps-folate 2-11 Each by ity of no.1-dha 00:00: mouth [place] (VITAFOL 00 daily. Medical ULTRA) 29 Branch mg iron- 1 mg-200 mg Cap PNV 67-iron 2020-1 Yes [id number] 1{each} Take 1 [facility] ps-folate 2-11 Each by ity of no.1-dha 00:00: mouth [place] (VITAFOL 00 daily. Medical ULTRA) 29 Branch mg iron- 1 mg-200 mg Cap PNV 67-iron 2020-1 Yes [id number] 1{each} Take 1 [facility] ps-folate 2-11 Each by ity of no.1-dha 00:00: mouth [place] (VITAFOL 00 daily. Medical ULTRA) 29 Branch mg iron- 1 mg-200 mg Cap PNV 67-iron 2020-1 Yes [id number] 1{each} Take 1 [facility] ps-folate 2-11 Each by ity of no.1-dha 00:00: mouth [place] (VITAFOL 00 daily. Medical ULTRA) 29 Branch mg iron- 1 mg-200 mg Cap PNV 67-iron 2020-1 Yes [id number] 1{each} Take 1 [facility] ps-folate 2-11 Each by ity of no.1-dha 00:00: mouth [place] (VITAFOL 00 daily. Medical ULTRA) 29 Branch mg iron- 1 mg-200 mg Cap PNV 67-iron 2020-1 Yes [id number] 1{each} Take 1 [facility] ps-folate 2-11 Each by ity of no.1-dha 00:00: mouth [place] (VITAFOL 00 daily. Medical ULTRA) 29 Branch mg iron- 1 mg-200 mg Cap PNV 67-iron 2020-1 Yes [id number] 1{each} Take 1 [facility] ps-folate 2-11 Each by ity of no.1-dha 00:00: mouth [place] (VITAFOL 00 daily. Medical ULTRA) 29 Branch mg iron- 1 mg-200 mg Cap PNV 67-iron 2020-1 Yes [id number] 1{each} Take 1 [facility] ps-folate 2-11 Each by ity of no.1-dha 00:00: mouth [place] (VITAFOL 00 daily. Medical ULTRA) 29 Branch mg iron- 1 mg-200 mg Cap PNV 67-iron 2020-1 Yes [id number] 1{each} Take 1 [facility] ps-folate 2-11 Each by ity of no.1-dha 00:00: mouth [place] (VITAFOL 00 daily. Medical ULTRA) 29 Branch mg iron- 1 mg-200 mg Cap PNV 67-iron 2020-1 Yes [id number] 1{each} Take 1 [facility] ps-folate 2-11 Each by ity of no.1-dha 00:00: mouth [place] (VITAFOL 00 daily. Medical ULTRA) 29 Branch mg iron- 1 mg-200 mg Cap PNV 67-iron 2020-1 Yes [id number] 1{each} Take 1 [facility] ps-folate 2-11 Each by ity of no.1-dha 00:00: mouth [place] (VITAFOL 00 daily. Medical ULTRA) 29 Branch mg iron- 1 mg-200 mg Cap PNV 67-iron 2020-1 Yes [id number] 1{each} Take 1 [facility] ps-folate 2-11 Each by ity of no.1-dha 00:00: mouth [place] (VITAFOL 00 daily. Medical ULTRA) 29 Branch mg iron- 1 mg-200 mg Cap PNV 67-iron 2020-1 Yes [id number] 1{each} Take 1 [facility] ps-folate 2-11 Each by ity of no.1-dha 00:00: mouth [place] (VITAFOL 00 daily. Medical ULTRA) 29 Branch mg iron- 1 mg-200 mg Cap PNV 67-iron 2020-1 Yes [id number] 1{each} Take 1 [facility] ps-folate 2-11 Each by ity of no.1-dha 00:00: mouth [place] (VITAFOL 00 daily. Medical ULTRA) 29 Branch mg iron- 1 mg-200 mg Cap PNV 67-iron 2020-1 Yes [id number] 1{each} Take 1 [facility] ps-folate 2-11 Each by ity of no.1-dha 00:00: mouth [place] (VITAFOL 00 daily. Medical ULTRA) 29 Branch mg iron- 1 mg-200 mg Cap PNV 67-iron 2020-1 Yes [id number] 1{each} Take 1 [facility] ps-folate 2-11 Each by ity of no.1-dha 00:00: mouth [place] (VITAFOL 00 daily. Medical ULTRA) 29 Branch mg iron- 1 mg-200 mg Cap PNV 67-iron 2020-1 Yes [id number] 1{each} Take 1 [facility] ps-folate 2-11 Each by ity of no.1-dha 00:00: mouth [place] (VITAFOL 00 daily. Medical ULTRA) 29 Branch mg iron- 1 mg-200 mg Cap PNV 67-iron 2020-1 Yes [id number] 1{each} Take 1 [facility] ps-folate 2-11 Each by ity of no.1-dha 00:00: mouth [place] (VITAFOL 00 daily. Medical ULTRA) 29 Branch mg iron- 1 mg-200 mg Cap PNV 67-iron 2020-1 Yes [id number] 1{each} Take 1 [facility] ps-folate 2-11 Each by ity of no.1-dha 00:00: mouth [place] (VITAFOL 00 daily. Medical ULTRA) 29 Branch mg iron- 1 mg-200 mg Cap PNV 67-iron 2020-1 Yes [id number] 1{each} Take 1 [facility] ps-folate 2-11 Each by ity of no.1-dha 00:00: mouth [place] (VITAFOL 00 daily. Medical ULTRA) 29 Branch mg iron- 1 mg-200 mg Cap PNV 67-iron 2020-1 Yes [id number] 1{each} Take 1 [facility] ps-folate 2-11 Each by ity of no.1-dha 00:00: mouth [place] (VITAFOL 00 daily. Medical ULTRA) 29 Branch mg iron- 1 mg-200 mg Cap PNV 67-iron 2020-1 Yes [id number] 1{each} Take 1 [facility] ps-folate 2-11 Each by ity of no.1-dha 00:00: mouth [place] (VITAFOL 00 daily. Medical ULTRA) 29 Branch mg iron- 1 mg-200 mg Cap PNV 67-iron 2020-1 Yes [id number] 1{each} Take 1 [facility] ps-folate 2-11 Each by ity of no.1-dha 00:00: mouth [place] (VITAFOL 00 daily. Medical ULTRA) 29 Branch mg iron- 1 mg-200 mg Cap PNV 67-iron 2020-1 Yes [id number] 1{each} Take 1 [facility] ps-folate 2-11 Each by ity of no.1-dha 00:00: mouth [place] (VITAFOL 00 daily. Medical ULTRA) 29 Branch mg iron- 1 mg-200 mg Cap PNV 67-iron 2020-1 Yes [id number] 1{each} Take 1 [facility] ps-folate 2-11 Each by ity of no.1-dha 00:00: mouth [place] (VITAFOL 00 daily. Medical ULTRA) 29 Branch mg iron- 1 mg-200 mg Cap PNV 67-iron 2020-1 Yes [id number] 1{each} Take 1 [facility] ps-folate 2-11 Each by ity of no.1-dha 00:00: mouth [place] (VITAFOL 00 daily. Medical ULTRA) 29 Branch mg iron- 1 mg-200 mg Cap PNV 67-iron 2020-1 Yes [id number] 1{each} Take 1 [facility] ps-folate 2-11 Each by ity of no.1-dha 00:00: mouth [place] (VITAFOL 00 daily. Medical ULTRA) 29 Branch mg iron- 1 mg-200 mg Cap PNV 67-iron 2020-1 Yes [id number] 1{each} Take 1 [facility] ps-folate 2-11 Each by ity of no.1-dha 00:00: mouth [place] (VITAFOL 00 daily. Medical ULTRA) 29 Branch mg iron- 1 mg-200 mg Cap PNV 67-iron 2020-1 Yes [id number] 1{each} Take 1 [facility] ps-folate 2-11 Each by ity of no.1-dha 00:00: mouth [place] (VITAFOL 00 daily. Medical ULTRA) 29 Branch mg iron- 1 mg-200 mg Cap PNV 67-iron 2020-1 Yes [id number] 1{each} Take 1 Univers ps-folate 2-11 Each by ity of no.1-dha 00:00: mouth [place] (VITAFOL 00 daily. Medical ULTRA) 29 Branch mg iron- 1 mg-200 mg Cap PNV 67-iron 2020-1 Yes [id number] 1{each} Take 1 Univers ps-folate 2-11 Each by ity of no.1-dha 00:00: mouth [place] (VITAFOL 00 daily. Medical ULTRA) 29 Branch mg iron- 1 mg-200 mg Cap PNV 67-iron 2020-1 Yes [id number] 1{each} Take 1 Univers ps-folate 2-11 Each by ity of no.1-dha 00:00: mouth [place] (VITAFOL 00 daily. Medical ULTRA) 29 Branch mg iron- 1 mg-200 mg Cap PNV 67-iron 2020-1 Yes [id number] 1{each} Take 1 Univers ps-folate 2-11 Each by ity of no.1-dha 00:00: mouth [place] (VITAFOL 00 daily. Medical ULTRA) 29 Branch mg iron- 1 mg-200 mg Cap PNV 67-iron 2020-1 Yes [id number] 1{each} Take 1 Univers ps-folate 2-11 Each by ity of no.1-dha 00:00: mouth [place] (VITAFOL 00 daily. Medical ULTRA) 29 Branch mg iron- 1 mg-200 mg Cap PNV 67-iron 2019-11 Yes [id number] 1{each} Take 1 Univers ps-folate 2-11 Each by ity of no.1-dha 00:00: mouth [place] (VITAFOL 00 daily. Medical ULTRA) 29 Branch mg iron- 1 mg-200 mg Cap PNV 67-iron 2019-11 Yes [id number] 1{each} Take 1 Univers ps-folate 2-11 Each by ity of no.1-dha 00:00: mouth [place] (VITAFOL 00 daily. Medical ULTRA) 29 Branch mg iron- 1 mg-200 mg Cap cefTRIAXone 2019- No 1g 1 g, IV Un petra (ROCEPHIN) 06-30 Piggyback, it y of 1 g in NaCl 06:00: 06:05 [place] 1 [place] 0.9% (NS) 00 :00 dose, Sat Medic al 50 mL 06/30/19 at [place] MINI-BAG 0100, 50 mL
Reas on for Anti-Infec tive: Documented Infection< br>Documen nancy Infection Site: Urine
D uration of Therapy: Other (see Comments) NaCl 0.9% 2019- No 1000mL at 999 Uni vers (NS) bolus 06-30 mL/hr, ity of infusion 05:00: 06:00 1,000 mL, Bib as 1,000 mL 00 :00 IV Medical Infusion, Branch ONCE, 1 dose, 06/30/19 at 0000, STAT Nitrofurant 2019- No [id number] 100mg Take 1 Univers oin&Nit. 06-30 capsule by ity of [place] 00:00: 04:59 mouth 2 Bib as (MACROBID) 00 :00 (two) Medical 100 mg times Branch capsule daily for 7 days. Nitrofurant 2018- No [id number] 100mg Take 1 Univers oin&Nit. 06-30 capsule by ity of [place] 00:00: 04:59 mouth 2 Bib as (MACROBID) 00 :00 (two) Medical 100 mg times Branch capsule daily for 7 days. Nitrofurant 2019- No [id number] 100mg Take 1 Univers oin&Nit. 06-30 capsule by ity of [place] 00:00: 04:59 mouth 2 Bib as (MACROBID) 00 :00 (two) Medical 100 mg times Branch capsule daily for 7 days. Nitrofurant 2019- No [id number] 100mg Take 1 Univers oin&Nit. 06-30 capsule by ity of [place] 00:00: 04:59 mouth 2 Bib as (MACROBID) 00 :00 (two) Medical 100 mg times Branch capsule daily for 7 days. norethindro Yes [id number] 1{tbl} Take 1 Univers ne 0.35 mg 7-19 tablet by ity of tablet 00:00: mouth [place] 00 daily. [facility] Branch norethindro Yes [id number] 1{tbl} Take 1 Univers ne 0.35 mg 7-19 tablet by ity of tablet 00:00: mouth [place] 00 daily. [facility] Branch norethindro 2019- No [id number] 1{tbl} Take 1 Univers ne 0.35 mg 7-19 08-14 tablet by ity of tablet 00:00: 00:00 mouth [place] 00 :00 daily. Medical Branch ferrous Yes 325mg Take 1 Univers sulfate 325 6-05 tablet by ity of mg (65 mg 00:00: mouth 2 [place] iron) 00 (two) Medical tablet times Branch daily. ferrous Yes 325mg Take 1 Univers sulfate 325 6-05 tablet by ity of mg (65 mg 00:00: mouth 2 [place] iron) 00 (two) Medical tablet times Branch daily. ferrous 2019- No 325mg Take 1 Univer s sulfate 325 6-05 08-14 tablet by it y of mg (65 mg 00:00: 00:[place] :00 (two) Medical tablet times [facility] daily. No known [facility] known No [facility] No [facility] No [facility] No [facility] medications ity [facility] No known No Univers medications ity of [facility] No known No Univers medications ity of [facility] No known No Univers medications ity of [facility] Immunizations Ordered Filled Immunization Date Status Comments [facility] e Immunization Name Name [facility] 2021-04-16 Completed University of 00:00:00 [facility] [place] [facility] 2021-04-16 Completed University of 00:00:00 [facility] [place] [facility] 2021-04-16 Completed University of 00[facility]00:00 [facility] MMR 2021-04-16 Completed University of 00:00:00 [facility] [place] [facility] TDAP 2021-02-09 Completed University of 00:00:00 [facility] [place] [facility] Branch TDAP 2021-02-09 Completed University of 00:00:00 [facility] [place] [facility] Branch TDAP 2021-02-09 Completed University of 00:00:00 [facility] TDAP 2021-02-09 Completed University of 00:00:00 [facility] [place] [facility] TDAP 2021-02-09 Completed University of 00:00:00 [facility] [place] [facility] Branch TDAP 2021-02-09 Completed University of 00:00:00 [facility] [place] [facility] Branch TDAP 2021-02-09 Completed University of 00:00:00 [facility] [place] [facility] Branch TDAP 2021-02-09 Completed University of 00:00:00 [facility] [place] [facility] Branch TDAP 2021-02-09 Completed University of 00:00:00 [facility] [place] [facility] TDAP 2021-02-09 Completed University of 00:00:00 [facility] TDAP 2021-02-09 Completed University of 00:00:00 [facility] [place] [facility] Branch TDAP 2021-02-09 Completed University of 00:00:00 [facility] [place] [facility] TDAP 2021-02-09 Completed University of 00:00:00 [facility] [place] [facility] TDAP 2021-02-09 Completed University of 00:00:00 [facility] [place] [facility] Branch TDAP 2021-02-09 Completed University of 00:00:00 [facility] [place] [facility] Branch TDAP 2021-02-09 Completed University of 00:00:00 [facility] [place] [facility] Branch TDAP 2021-02-09 Completed University of 00:00:00 [facility] [place] [facility] TDAP 2021-02-09 Completed University of 00:00:00 [facility] [place] [facility] TDAP 2021-02-09 Completed University of 00:00:00 [facility] [place] [facility] TDAP 2021-02-09 Completed University of 00:00:00 [place] [facility] TDAP 2021-02-09 Completed University of 00:00:00 [place] [facility] TDAP 2021-02-09 Completed University of 00:00:00 [place] [facility] TDAP 2021-02-09 Completed University of 00:00:00 [place] [facility] TDAP 2021-02-09 Completed University of 00:00:00 [place] [facility] TDAP 2021-02-09 Completed University of 00:00:00 [place] [facility] TDAP 2021-02-09 Completed University of 00:00:00 [place] [facility] TDAP 2021-02-09 Completed University of 00:00:00 [place] [facility] TDAP 2021-02-09 Completed University of 00:00:00 [place] [facility] TDAP 2021-02-09 Completed University of 00:00:00 [place] [facility] TDAP 2021-02-09 Completed University of 00:00:00 [place] [facility] TDAP 2021-02-09 Completed University of 00:00:00 [facility] [place] [facility] TDAP 2018-01-31 Completed University of 00:00:00 [place] [facility] TDAP 2018-01-31 Completed University of 00:00:00 [place] [facility] TDAP 2018-01-31 Completed University of 00:00:00 [place] [facility] TDAP 2018-01-31 Completed University of 00:00:00 [place] [facility] TDAP 2018-01-31 Completed University of 00:00:00 [place] [facility] TDAP 2018-01-31 Completed University of 00:00:00 [place] [facility] TDAP 2018-01-31 Completed University of 00:00:00 [place] [facility] TDAP 2018-01-31 Completed University of 00:00:00 [place] [facility] TDAP 2018-01-31 Completed University of 00:00:00 [place] [facility] TDAP 2018-01-31 Completed University of 00:00:00 [place] [facility] TDAP 2018-01-31 Completed University of 00:00:00 [place] [facility] TDAP 2018-01-31 Completed University of 00:00:00 [place] [facility] TDAP 2018-01-31 Completed University of 00:00:00 [place] [facility] TDAP 2018-01-31 Completed University of 00:00:00 [place] [facility] TDAP 2018-01-31 Completed University of 00:00:00 [place] [facility] TDAP 2018-01-31 Completed University of 00:00:00 [place] [facility] TDAP 2018-01-31 Completed University of 00:00:00 [place] [facility] TDAP 2018-01-31 Completed University of 00:00:00 [place] [facility] TDAP 2018-01-31 Completed University of 00:00:00 [place] [facility] TDAP 2018-01-31 Completed University of 00:00:00 [place] [facility] TDAP 2018-01-31 Completed University of 00:00:00 [place] [facility] TDAP 2018-01-31 Completed University of 00:00:00 [place] [facility] TDAP 2018-01-31 Completed University of 00:00:00 [place] [facility] TDAP 2018-01-31 Completed University of 00:00:00 [place] [facility] TDAP 2018-01-31 Completed University of 00:00:00 [place] [facility] TDAP 2018-01-31 Completed University of 00:00:00 [place] [facility] TDAP 2018-01-31 Completed University of 00:00:00 [place] [facility] Tdap 2018-01-31 Completed University of 00:00:00 [place] [facility] Tdap 2018-01-31 Completed University of 00:00:00 [place] [facility] Tdap 2018-01-31 Completed University of 00:00:00 [place] [facility] Tdap 2018-01-31 Completed University of 00:00:00 [place] [facility] Tdap 2018-01-31 Completed University of 00:00:00 [place] [facility] Tdap 2018-01-31 Completed University of 00:00:00 [place] [facility] Tdap 2018-01-31 Completed University of 00:00:00 [place] [facility] Tdap 2018-01-31 Completed University of 00:00:00 [place] [facility] Tdap 2018-01-31 Completed University of 00:00:00 [place] [facility] Tdap 2018-01-31 Completed University of 00:00:00 [place] [facility] Tdap 2018-01-31 Completed University of 00:00:00 [place] [facility] Tdap 2018-01-31 Completed University of 00:00:00 [place] [facility] Tdap 2018-01-31 Completed University of 00:00:00 [place] [facility] Tdap 2018-01-31 Completed University of 00:00:00 [place] [facility] TDAP 2018-01-31 Completed University of 00:00:00 [place] [facility] TDAP 2018-01-31 Completed University of 00:00:00 [place] [facility] TDAP 2018-01-31 Completed University of 00:00:00 [place] [facility] TDAP 2018-01-31 Completed University of 00:00:00 [place] [facility] TDAP 2018-01-31 Completed University of 00:00:00 [place] [facility] TDAP 2018-01-31 Completed University of 00:00:00 [place] [facility] TDAP 2018-01-31 Completed University of 00:00:00 [place] [facility] TDAP 2018-01-31 Completed University of 00:00:00 [place] [facility] TDAP 2018-01-31 Completed University of 00:00:00 [place] [facility] TDAP 2018-01-31 Completed University of 00:00:00 [place] [facility] TDAP 2018-01-31 Completed University of 00:00:00 [place] [facility] TDAP 2018-01-31 Completed University of 00:00:00 [place] [facility] TDAP 2018-01-31 Completed University of 00:00:00 [place] [facility] TDAP 2018-01-31 Completed University of 00:00:00 [place] [facility] TDAP 2018-01-31 Completed University of 00:00:00 [place] [facility] TDAP 2018-01-31 Completed University of 00:00:00 [place] [facility] TDAP 2018-01-31 Completed University of 00:00:00 [place] [facility] TDAP 2018-01-31 Completed University of 00:00:00 [place] [facility] TDAP 2018-01-31 Completed University of 00:00:00 [place] [facility] TDAP 2018-01-31 Completed University of 00:00:00 [place] [facility] TDAP 2018-01-31 Completed University of 00:00:00 [place] [facility] TDAP 2018-01-31 Completed University of 00:00:00 [place] [facility] TDAP 2018-01-31 Completed University of 00:00:00 [place] [facility] TDAP 2018-01-31 Completed University of 00:00:00 [place] [facility] TDAP 2018-01-31 Completed University of 00:00:00 [place] [facility] TDAP 2018-01-31 Completed University of 00:00:00 [place] [facility] TDAP 2018-01-31 Completed University of 00:00:00 [place] [facility] TDAP 2018-01-31 Completed University of 00:00:00 [place] [facility] TDAP 2018-01-31 Completed University of 00:00:00 [place] [facility] TDAP 2018-01-31 Completed University of 00:00:00 [place] [facility] TDAP 2018-01-31 Completed University of 00:00:00 [facility] TDAP 2018-01-31 Completed University of 00:00:00 [facility] TDAP 2018-01-31 Completed University of 00:00:00 [facility] TDAP 2018-01-31 Completed University of 00:00:00 [facility] TDAP 2018-01-31 Completed University of 00:00:00 [facility] TDAP 2018-01-31 Completed University of 00:00:00 [facility] TDAP 2018-01-31 Completed University of 00:00:00 [facility] TDAP 2018-01-31 Completed University of 00:00:00 [facility] TDAP 2018-01-31 Completed University of 00:00:00 [facility] TDAP 2018-01-31 Completed University of 00:00:00 [facility] TDAP 2018-01-31 Completed University of 00:00:00 [facility] Influenza Virus 2017-08-30 Completed Universit y of Vaccine Quad IM 3+ 00:00:00 [facility] Influenza Virus 2017-08-30 Completed Universit y of Vaccine [facility] IM 3+ 00:00:00 [facility] Influenza Virus 2017-08-30 Completed Universit y of Vaccine [facility] IM 3+ 00:00:00 [facility] Influenza Virus 2017-08-30 Completed Universit y of Vaccine [facility] IM 3+ 00:00:00 [facility] Influenza Virus 2017-08-30 Completed Universit y of Vaccine Quad IM 3+ 00:00:00 [facility] Influenza Virus 2017-08-30 Completed Universit y of Vaccine Quad IM 3+ 00:00:00 [facility] Influenza Virus 2017-08-30 Completed Universit y of Vaccine [facility] IM 3+ 00:00:00 [facility] Influenza Virus 2017-08-30 Completed Universit y of Vaccine Quad IM 3+ 00:00:00 [facility] Influenza Virus 2017-08-30 Completed Universit y of Vaccine Quad IM 3+ 00:00:00 [facility] Influenza Virus 2017-08-30 Completed Universit y of Vaccine [facility] IM 3+ 00:00:00 [facility] Influenza Virus 2017-08-30 Completed Universit y of Vaccine Quad IM 3+ 00:00:00 [facility] Influenza Virus 2017-08-30 Completed Universit y of Vaccine [facility] IM 3+ 00:00:00 [facility] Influenza Virus 2017-08-30 Completed Universit y of Vaccine [facility] IM 3+ 00:00:00 [facility] Influenza Virus 2017-08-30 Completed Universit y of Vaccine Quad IM 3+ 00:00:00 [facility] Influenza Virus 2017-08-30 Completed Universit y of Vaccine [facility] IM 3+ 00:00:00 [facility] Influenza Virus 2017-08-30 Completed Universit y of Vaccine Quad IM 3+ 00:00:00 [facility] Influenza Virus 2017-08-30 Completed Universit y of Vaccine Quad IM 3+ 00:00:00 [facility] Influenza Virus 2017-08-30 Completed Universit y of Vaccine [facility] IM 3+ 00:00:00 [facility] Influenza Virus 2017-08-30 Completed Universit y of Vaccine [facility] IM 3+ 00:00:00 [facility] Influenza Virus 2017-08-30 Completed Universit y of Vaccine [facility] IM 3+ 00:00:00 [facility] Influenza Virus 2017-08-30 Completed Universit y of Vaccine Quad IM 3+ 00:00:00 [facility] Influenza Virus 2017-08-30 Completed Universit y of Vaccine Quad IM 3+ 00:00:00 [facility] Influenza Virus 2017-08-30 Completed Universit y of Vaccine Quad IM 3+ 00:00:00 [facility] Influenza Virus 2017-08-30 Completed Universit y of Vaccine Quad IM 3+ 00:00:00 [facility] Influenza Virus 2017-08-30 Completed Universit y of Vaccine Quad IM 3+ 00:00:00 [facility] Influenza Virus 2017-08-30 Completed Universit y of Vaccine Quad IM 3+ 00:00:00 [facility] Influenza Virus 2017-08-30 Completed Universit y of Vaccine Quad IM 3+ 00:00:00 [facility] Influenza Virus 2017-08-30 Completed Universit y of Vaccine [facility] IM 3+ 00:00:00 [facility] Influenza Virus 2017-08-30 Completed Universit y of Vaccine Quad IM 3+ 00:00:00 [facility] Influenza Virus 2017-08-30 Completed Universit y of Vaccine [facility] IM 3+ 00:00:00 [facility] Influenza Virus 2017-08-30 Completed Universit y of Vaccine [facility] IM 3+ 00:00:00 [facility] Influenza Virus 2017-08-30 Completed Universit y of Vaccine [facility] IM 3+ 00:00:00 [facility] Influenza Virus 2017-08-30 Completed Universit y of Vaccine Quad IM 3+ 00:00:00 [facility] Influenza Virus 2017-08-30 Completed Universit y of Vaccine Quad IM 3+ 00:00:00 [facility] Influenza Virus 2017-08-30 Completed Universit y of Vaccine Quad IM 3+ 00:00:00 [facility] Influenza Virus 2017-08-30 Completed Universit y of Vaccine Quad IM 3+ 00:00:00 [facility] Influenza Virus 2017-08-30 Completed Universit y of Vaccine Quad IM 3+ 00:00:00 [facility] Influenza Virus 2017-08-30 Completed Universit y of Vaccine Quad IM 3+ 00:00:00 [facility] Influenza Virus 2017-08-30 Completed Universit y of Vaccine Quad IM 3+ 00:00:00 [facility] Influenza Virus 2017-08-30 Completed Universit y of Vaccine Quad IM 3+ 00:00:00 [facility] Influenza Virus 2017-08-30 Completed Universit y of Vaccine Quad IM 3+ 00:00:00 [facility] Influenza Virus 2017-08-30 Completed Universit y of Vaccine Quad IM 3+ 00:00:00 [facility] Influenza Virus 2017-08-30 Completed Universit y of Vaccine Quad IM 3+ 00:00:00 [facility] Influenza Virus 2017-08-30 Completed Universit y of Vaccine Quad IM 3+ 00:00:00 [facility] Influenza Virus 2017-08-30 Completed Universit y of Vaccine Quad IM 3+ 00:00:00 [facility] Influenza Virus 2017-08-30 Completed Universit y of Vaccine Quad IM 3+ 00:00:00 [facility] Influenza Virus 2017-08-30 Completed Universit y of Vaccine Quad IM 3+ 00:00:00 [facility] Influenza Virus 2017-08-30 Completed Universit y of Vaccine Quad IM 3+ 00:00:00 [facility] Influenza Virus 2017-08-30 Completed Universit y of Vaccine Quad IM 3+ 00:00:00 [facility] Influenza Virus 2017-08-30 Completed Universit y of Vaccine Quad IM 3+ 00:00:00 [facility] Influenza Virus 2017-08-30 Completed Universit y of Vaccine Quad IM 3+ 00:00:00 [facility] Influenza Virus 2017-08-30 Completed Universit y of Vaccine Quad IM 3+ 00:00:00 [facility] Influenza Virus 2017-08-30 Completed Universit y of Vaccine Quad IM 3+ 00:00:00 [facility] Influenza Virus 2017-08-30 Completed Universit y of Vaccine Quad IM 3+ 00:00:00 [facility] Influenza Virus 2017-08-30 Completed Universit y of Vaccine Quad IM 3+ 00:00:00 [facility] Influenza Virus 2017-08-30 Completed Universit y of Vaccine Quad IM 3+ 00:00:00 [facility] Influenza Virus 2017-08-30 Completed Universit y of Vaccine Quad IM 3+ 00:00:00 [facility] Influenza Virus 2017-08-30 Completed Universit y of Vaccine Quad IM 3+ 00:00:00 [facility] Influenza Virus 2017-08-30 Completed Universit y of Vaccine Quad IM 3+ 00:00:00 [facility] Influenza Virus 2017-08-30 Completed Universit y of Vaccine Quad IM 3+ 00:00:00 [facility] Influenza Virus 2017-08-30 Completed Universit y of Vaccine Quad IM 3+ 00:00:00 [facility] Influenza Virus 2017-08-30 Completed Universit y of Vaccine Quad IM 3+ 00:00:00 [facility] Influenza Virus 2017-08-30 Completed Universit y of Vaccine Quad IM 3+ 00:00:00 [facility] Influenza Virus 2017-08-30 Completed Universit y of Vaccine Quad IM 3+ 00:00:00 [facility] Influenza Virus 2017-08-30 Completed Universit y of Vaccine Quad IM 3+ 00:00:00 [facility] Influenza Virus 2017-08-30 Completed Universit y of Vaccine Quad IM 3+ 00:00:00 [facility] Influenza Virus 2017-08-30 Completed Universit y of Vaccine Quad IM 3+ 00:00:00 [facility] Influenza Virus 2017-08-30 Completed Universit y of Vaccine Quad IM 3+ 00:00:00 [facility] Influenza Virus 2017-08-30 Completed Universit y of Vaccine Quad IM 3+ 00:00:00 [facility] Influenza Virus 2017-08-30 Completed Universit y of Vaccine Quad IM 3+ 00:00:00 [facility] Influenza Virus 2017-08-30 Completed Universit y of Vaccine [facility] IM 3+ 00:00:00 [facility] Influenza Virus 2017-08-30 Completed Universit y of Vaccine Quad IM 3+ 00:00:00 [facility] Influenza Virus 2017-08-30 Completed Universit y of Vaccine Quad IM 3+ 00:00:00 [facility] Influenza Virus 2017-08-30 Completed Universit y of Vaccine Quad IM 3+ 00:00:00 [facility] Influenza Virus 2017-08-30 Completed Universit y of Vaccine Quad IM 3+ 00:00:00 [facility] Influenza Virus 2017-08-30 Completed Universit y of Vaccine Quad IM 3+ 00:00:00 [facility] Influenza Virus 2017-08-30 Completed Universit y of Vaccine Quad IM 3+ 00:00:00 [facility] Influenza Virus 2017-08-30 Completed Universit y of Vaccine Quad IM 3+ 00:00:00 [facility] Influenza Virus 2017-08-30 Completed Universit y of Vaccine [facility] IM 3+ 00:00:00 [facility] Influenza Virus 2017-08-30 Completed Universit y of Vaccine [facility] IM 3+ 00:00:00 [facility] Influenza Virus 2017-08-30 Completed Universit y of Vaccine [facility] IM 3+ 00:00:00 [facility] Influenza Virus 2017-08-30 Completed Universit y of Vaccine [facility] IM 3+ 00:00:00 [facility] Vital Signs Vital Name Observation Time Observation Value Comments Source Systolic blood 2021-05-05 19:13:00 135 mm[Hg] Univer sity of pressure [facility] Diastolic blood 2021-05-05 19:13:00 84 mm[Hg] Unive rsity of pressure [facility] Heart rate 2021-05-05 19:13:00 88 /min [facility] acute hospital Body temperature 2021-05-05 19:13:00 37.44 Nelia [facility] 2021-05-05 19:13:00 16 /min [facility] Body height 2021-05-05 19:13:00 165.[facility] Body weight 2021-05-05 19:13:00 162.841 kg [facility] BMI 2021-05-05 19:13:00 59.74 kg/m2 [facility] Systolic blood 2021-05-05 06:00:00 122 mm[Hg] [facility] Diastolic blood 2021-05-05 06:00:00 73 mm[Hg] Unive rsity of pressure [facility] Heart rate 2021-05-05 06:00:00 101 /min [facility] Respiratory rate 2021-05-05 06:00:00 18 /min Univ ersity [facility] Oxygen saturation in 2021-05-05 06:00:00 98 /min University Arterial blood by [facility] Pulse oximetry Branch Body temperature 2021-05-05 04:42:00 36.83 Nelia [facility] [place] Body weight 2021-05-05 04:42:00 167.831 kg [facility] BMI 2021-05-05 04:42:00 59.75 kg/m2 [facility] Systolic blood 2021-04-21 19:20:00 130 mm[Hg] [facility] Diastolic blood 2021-04-21 19:20:00 86 mm[Hg] Unive rsity of pressure [facility] Heart rate 2021-04-21 19:00:00 90 /min [facility] Body temperature 2021-04-21 19:00:00 36.89 Nelia [facility] Respiratory rate 2021-04-21 19:00:00 16 /min Univ ers[facility] Body weight 2021-04-21 19:00:00 170.054 kg [facility] BMI 2021-04-21 19:00:00 60.54 kg/m2 [facility] Systolic blood 2021-04-14 11:00:00 126 mm[Hg] [facility] Diastolic blood 2021-04-14 11:00:00 76 mm[Hg] Unive rsity of pressure [facility] Heart rate 2021-04-14 11:00:00 88 /min [facility] Body temperature 2021-04-14 11:00:00 36.5 Nelia [facility] Respiratory rate 2021-04-14 11:00:00 19 /min Univ ersity of [facility] Oxygen saturation in 2021-04-14 11:00:00 96 /min [facility] Arterial blood by [facility] Pulse oximetry Branch Body height 2021-04-14 02:27:00 167.6 cm [facility] Body weight 2021-04-14 02:27:00 175.451 kg [facility] BMI 2021-04-14 02:27:00 62.46 kg/m2 [facility] Systolic blood 2021-04-13 20:51:00 135 mm[Hg] [facility] Diastolic blood 2021-04-13 20:51:00 87 mm[Hg] [facility] Heart rate 2021-04-13 20:51:00 84 /min [facility] Body temperature 2021-04-13 20:51:00 36.78 Nelia [facility] Respiratory rate 2021-04-13 20:51:00 24 /min Univ ersity of [facility] Body height 2021-04-13 20:51:00 167.6 cm [facility] Body weight 2021-04-13 20:51:00 175.451 kg [facility] BMI 2021-04-13 20:51:00 62.43 kg/m2 [facility] Systolic blood 2021-04-07 17:04:00 130 mm[Hg] [facility] Diastolic blood 2021-04-07 17:04:00 80 mm[Hg] [facility] Heart rate 2021-04-07 15:55:00 80 /min [facility] Body temperature 2021-04-07 15:53:00 36.61 Nelia [facility] Respiratory rate 2021-04-07 15:53:00 24 /min Univ ersity of [facility] Body height 2021-04-07 15:53:00 167.6 cm [facility] Body weight 2021-04-07 15:53:00 172.412 kg [facility] BMI 2021-04-07 15:53:00 61.35 kg/m2 [facility] Systolic blood 2021-04-02 18:46:00 120 mm[Hg] [facility] Diastolic blood 2021-04-02 18:46:00 80 mm[Hg] [facility] Heart rate 2021-04-02 18:46:00 72 /min [facility] Body temperature 2021-04-02 18:46:00 36.89 Nelia [facility] Respiratory rate 2021-04-02 18:46:00 16 /min [facility] Body height 2021-04-02 18:46:00 167.6 cm [facility] Body weight 2021-04-02 18:46:00 172.231 kg [facility] BMI 2021-04-02 18:46:00 61.29 kg/m2 [facility] Systolic blood 2021-03-30 20:47:00 125 mm[Hg] [facility] Diastolic blood 2021-03-30 20:47:00 79 mm[Hg] [facility] Heart rate 2021-03-30 20:47:00 82 /min [facility] Body temperature 2021-03-30 20:47:00 36.5 Nelia [facility] Respiratory rate 2021-03-30 20:47:00 16 /min [facility] Body height 2021-03-30 20:47:00 167.6 cm [facility] Body weight 2021-03-30 20:47:00 171.176 kg [facility] BMI 2021-03-30 20:47:00 60.91 kg/m2 [facility] Heart rate 2021-03-26 19:20:00 106 /min [facility] Systolic blood 2021-03-26 19:06:00 115 mm[Hg] [facility] Diastolic blood 2021-03-26 19:06:00 76 mm[Hg] [facility] Body temperature 2021-03-26 19:06:00 36.5 Nelia [facility] Respiratory rate 2021-03-26 19:06:00 16 /min [facility] Body height 2021-03-26 19:06:00 167.6 cm [facility] Body weight 2021-03-26 19:06:00 171.176 kg [facility] BMI 2021-03-26 19:06:00 60.91 kg/m2 [facility] Systolic blood 2021-03-23 20:54:00 123 mm[Hg] [facility] Diastolic blood 2021-03-23 20:54:00 79 mm[Hg] Unive rsity of pressure [facility] Heart rate 2021-03-23 20:54:00 111 /min [facility] Body temperature 2021-03-23 20:54:00 36.83 Nelia [facility] Respiratory rate 2021-03-23 20:54:00 16 /min [facility] Body height 2021-03-23 20:54:00 167.6 cm [facility] Body weight 2021-03-23 20:54:00 171.998 kg [facility] BMI 2021-03-23 20:54:00 61.20 kg/m2 [facility] Heart rate 2021-03-20 21:45:00 99 /min [facility] Oxygen saturation in 2021-03-20 21:45:00 99 /min [facility] Arterial blood by [facility] Pulse oximetry Branch Systolic blood 2021-03-20 21:30:00 125 mm[Hg] [facility] Diastolic blood 2021-03-20 21:30:00 83 mm[Hg] Unive rsity of pressure [facility] Body temperature 2021-03-20 21:30:00 36.67 Nelia [facility] Respiratory rate 2021-03-20 20:30:00 18 /min Univ [facility] of [facility] Body height 2021-03-20 14:40:00 167.6 cm [facility] Body weight 2021-03-20 14:40:00 171.278 kg [facility] BMI 2021-03-20 14:40:00 60.95 kg/m2 [facility] Systolic blood 2021-03-19 19:04:00 121 mm[Hg] [facility]iver [facility]ity [facility] Diastolic blood 2021-03-19 19:04:00 74 mm[Hg] [facility]ive [facility]ity [facility] pressure [facility] Heart rate 2021-03-19 19:04:00 86 /min [facility] Body temperature 2021-03-19 19:04:00 36.44 Nelia [facility] Respiratory rate 2021-03-19 19:04:00 16 /min [facility] Body height 2021-03-19 19:04:00 167.6 cm [facility] Body weight 2021-03-19 19:04:00 171.176 kg [facility] BMI 2021-03-19 19:04:00 60.91 kg/m2 [facility] Systolic blood 2021-03-12 18:36:00 125 mm[Hg] [facility] Diastolic blood 2021-03-12 18:36:00 79 mm[Hg] [facility]ive [facility]ity [facility] Heart rate 2021-03-12 18:36:00 74 /min [facility] Body temperature 2021-03-12 18:36:00 37.22 Nelia [facility] Respiratory rate 2021-03-12 18:36:00 21 /min [facility] Body height 2021-03-12 18:36:00 167.6 cm [facility] Body weight 2021-03-12 18:36:00 169.872 kg [facility] BMI 2021-03-12 18:36:00 60.45 kg/m2 [facility] Systolic blood 2021-02-26 18:07:00 120 mm[Hg] [facility] Diastolic blood 2021-02-26 18:07:00 68 mm[Hg] [facility]ive [facility]ity [facility] Body temperature 2021-02-26 18:07:00 36.89 Nelia [facility] Respiratory rate 2021-02-26 18:07:00 16 /min [facility] Body height 2021-02-26 18:07:00 167.6 cm [facility] Body weight 2021-02-26 18:07:00 168.455 kg [facility] BMI 2021-02-26 18:07:00 59.94 kg/m2 [facility] Systolic blood 2021-02-09 18:18:00 112 mm[Hg] Univer [facility]ity [facility] Diastolic blood 2021-02-09 18:18:00 62 mm[Hg] [facility]ive rsity of pressure [facility] Heart rate 2021-02-09 18:18:00 86 /min [facility] Body temperature 2021-02-09 18:18:00 36.94 Nelia [facility] Respiratory rate 2021-02-09 18:18:00 16 /min [facility] Body height 2021-02-09 18:18:00 167.6 cm [facility] Body weight 2021-02-09 18:18:00 168.738 kg [facility] BMI 2021-02-09 18:18:00 60.04 kg/m2 [facility] Systolic blood 2021-01-29 19:21:00 110 mm[Hg] [facility]iver [facility]ity of [facility] Diastolic blood 2021-01-29 19:21:00 68 mm[Hg] [facility]ive rs[facility] Heart rate 2021-01-29 19:21:00 78 /min [facility] Body temperature 2021-01-29 19:21:00 36.17 Nelia [facility] Respiratory rate 2021-01-29 19:21:00 16 /min [facility] Body height 2021-01-29 19:21:00 167.6 cm [facility] Body weight 2021-01-29 19:21:00 168.511 kg [facility] BMI 2021-01-29 19:21:00 59.96 kg/m2 [facility] Systolic blood 2021-01-26 13:20:00 109 mm[Hg] [facility]iver [facility]ity of [facility] Diastolic blood 2021-01-26 13:20:00 73 mm[Hg] Unive rsity of pressure [facility] Heart rate 2021-01-26 13:20:00 78 /min [facility] Body temperature 2021-01-26 13:20:00 37.17 Nelia [facility] Respiratory rate 2021-01-26 13:20:00 16 /min [facility] Body height 2021-01-26 13:20:00 167.6 cm [facility] Body weight 2021-01-26 13:20:00 170.371 kg [facility] BMI 2021-01-26 13:20:00 60.62 kg/m2 [facility] Systolic blood 2021-01-12 19:45:00 120 mm[Hg] Univer sity of pressure [facility] Diastolic blood 2021-01-12 19:45:00 75 mm[Hg] Unive rsity of pressure [facility] Heart rate 2021-01-12 19:45:00 91 /min [facility] Body temperature 2021-01-12 19:45:00 36.44 Nelia [facility] Respiratory rate 2021-01-12 19:45:00 16 /min [facility] Body height 2021-01-12 19:45:00 170.2 cm [facility] Body weight 2021-01-12 19:45:00 167.944 kg [facility] BMI 2021-01-12 19:45:00 57.99 kg/m2 [facility] Systolic blood 2020-12-11 19:10:00 116 mm[Hg] Univer sity of pressure [facility] Diastolic blood 2020-12-11 19:10:00 65 mm[Hg] Unive rsity of pressure [facility] Heart rate 2020-12-11 19:10:00 105 /min [facility] Body temperature 2020-12-11 19:10:00 36.56 Nelia [facility] Respiratory rate 2020-12-11 19:10:00 16 /min Univ [facility] Body height 2020-12-11 19:10:00 170.7 cm [facility] Body weight 2020-12-11 19:10:00 167.105 kg [facility] BMI 2020-12-11 19:10:00 57.36 kg/m2 [facility] Systolic blood 2020-11-13 19:19:00 115 mm[Hg] Univer sity of pressure [facility] Diastolic blood 2020-11-13 19:19:00 69 mm[Hg] Unive rsity of pressure [facility] Heart rate 2020-11-13 19:19:00 90 /min [facility] Body temperature 2020-11-13 19:19:00 36.78 Nelia [facility] Respiratory rate 2020-11-13 19:19:00 16 /min Univ [facility] Body height 2020-11-13 19:19:00 167.6 cm [facility] Body weight 2020-11-13 19:19:00 166.924 kg [facility] BMI 2020-11-13 19:19:00 59.40 kg/m2 [facility] Systolic blood 2020-11-13 11:00:00 131 mm[Hg] [facility] Diastolic blood 2020-11-13 11:00:00 84 mm[Hg] Unive rsity of pressure [facility] Heart rate 2020-11-13 11:00:00 115 /min [facility] Body temperature 2020-11-13 11:00:00 37.56 Nelia [facility] Respiratory rate 2020-11-13 11:00:00 18 /min Univ [facility] Oxygen saturation in 2020-11-13 11:00:00 99 /min University Arterial blood by [facility] Pulse oximetry Branch Body weight 2020-11-13 06:30:00 170.099 kg [facility] BMI 2020-11-13 06:30:00 60.53 kg/m2 [facility] Systolic blood 2020-10-16 16:16:00 109 mm[Hg] Univer sity of pressure [facility] Diastolic blood 2020-10-16 16:16:00 72 mm[Hg] Unive rsity of pressure [facility] Heart rate 2020-10-16 16:16:00 80 /min [facility] Body temperature 2020-10-16 16:16:00 36.17 Nelia [facility] Respiratory rate 2020-10-16 16:16:00 13 /min [facility] Body height 2020-10-16 16:16:00 167.6 cm [facility] Body weight 2020-10-16 16:16:00 165.654 kg [facility] BMI 2020-10-16 16:16:00 58.94 kg/m2 [facility] Systolic blood 2019-07-12 15:03:00 118 mm[Hg] Univer sity of pressure [facility] Diastolic blood 2019-07-12 15:03:00 88 mm[Hg] Unive rsity of pressure [facility] Heart rate 2019-07-12 15:03:00 87 /min [facility] Body temperature 2019-07-12 15:03:00 36.56 Nelia [facility] Respiratory rate 2019-07-12 15:03:00 19 /min [facility] Body height 2019-07-12 15:03:00 167.6 cm [facility] Body weight 2019-07-12 15:03:00 153.134 kg [facility] BMI 2019-07-12 15:03:00 54.49 kg/m2 [facility] Systolic blood 2019-07-11 16:44:00 121 mm[Hg] Univer sity of pressure [facility] Diastolic blood 2019-07-11 16:44:00 75 mm[Hg] Unive rsity of pressure [facility] Heart rate 2019-07-11 16:44:00 83 /min [facility] Body temperature 2019-07-11 16:44:00 36.89 Nelia [facility] Respiratory rate 2019-07-11 16:44:00 16 /min [facility] Body height 2019-07-11 16:44:00 167.6 cm [facility] Body weight 2019-07-11 16:44:00 153.883 kg [facility] BMI 2019-07-11 16:44:00 54.76 kg/m2 [facility] Systolic blood 2019-07-10 18:47:00 121 mm[Hg] Univer sity of pressure [facility] Diastolic blood 2019-07-10 18:47:00 75 mm[Hg] Unive rsity of pressure [facility] Heart rate 2019-07-10 18:47:00 83 /min [facility] Body temperature 2019-07-10 18:47:00 36.89 Nelia [facility] Respiratory rate 2019-07-10 18:47:00 16 /min [facility] Body height 2019-07-10 18:47:00 167.6 cm [facility] Body weight 2019-07-10 18:47:00 153.883 kg [facility] BMI 2019-07-10 18:47:00 54.76 kg/m2 [facility] Systolic blood 2019-07-02 19:38:00 138 mm[Hg] Univer sity of pressure [facility] Diastolic blood 2019-07-02 19:38:00 88 mm[Hg] Unive rsity of pressure [facility] Heart rate 2019-07-02 19:38:00 66 /min [facility] Body temperature 2019-07-02 19:38:00 37.11 Nelia [facility] Respiratory rate 2019-07-02 19:38:00 16 /min [facility] Body height 2019-07-02 19:38:00 167.6 cm [facility] Body weight 2019-07-02 19:38:00 152.012 kg [facility] BMI 2019-07-02 19:38:00 54.09 kg/m2 [facility] Systolic blood 2019-06-30 06:00:00 122 mm[Hg] Univer sity of pressure [facility] Diastolic blood 2019-06-30 06:00:00 83 mm[Hg] Unive rsity of pressure [facility] Heart rate 2019-06-30 06:00:00 95 /min [facility] Respiratory rate 2019-06-30 06:00:00 16 /min Univ [facility]ity of [facility] Oxygen saturation in 2019-06-30 06:00:00 100 /min University of Arterial blood by [facility] Pulse oximetry Branch Body temperature 2019-06-30 03:30:00 36.83 Nelia [facility] Body height 2019-06-30 03:30:00 167.6 cm [facility] Body weight 2019-06-30 03:30:00 152.409 kg [facility] BMI 2019-06-30 03:30:00 54.23 kg/m2 [facility] Systolic blood 2019-06-20 18:59:00 123 mm[Hg] Univer sity of pressure [facility] Diastolic blood 2019-06-20 18:59:00 86 mm[Hg] Unive rsity of pressure [facility] Heart rate 2019-06-20 18:59:00 102 /min [facility] Body temperature 2019-06-20 18:59:00 36.67 Nelia [facility] Respiratory rate 2019-06-20 18:59:00 16 /min [facility] Body height 2019-06-20 18:59:00 167.6 cm [facility] Body weight 2019-06-20 18:59:00 151.955 kg [facility] BMI 2019-06-20 18:59:00 54.07 kg/m2 [facility] Systolic blood 2019-06-19 20:04:00 113 mm[Hg] Univer sity of pressure [facility] Diastolic blood 2019-06-19 20:04:00 70 mm[Hg] Unive rsity of pressure [facility] Heart rate 2019-06-19 20:04:00 79 /min [facility] Body temperature 2019-06-19 20:04:00 37.17 Nelia [facility] Respiratory rate 2019-06-19 20:04:00 16 /min [facility] Body height 2019-06-19 20:04:00 167.6 cm [facility] Body weight 2019-06-19 20:04:00 152.182 kg [facility] BMI 2019-06-19 20:04:00 54.15 kg/m2 [facility] Procedures Procedure Date / Time Performing Clinician Source Performed HB ABO GROUPING 2021-05-05 05:12:00 Carmen Morales [facility] COMP. METABOLIC PANEL 2021-05-05 05:10:00 Carmen Morales [facility] ([id number]) [facility] TOTAL BETA HCG ASSAY 2021-05-05 05:10:00 Carmen Morales [facility] CBC WITH DIFF 2021-05-05 05:10:00 Carmen Morales [facility] NOTICE OF PRIVACY 2021-05-05 04:25:47 Doctor Unassigned, [facility] PRACTICES [place] [facility] CONSENT/REFUSAL FOR 2021-05-05 04:25:13 Doctor Unassigned, [facility] DIAGNOSIS AND TREATMENT [place] [facility] CBC WITH DIFF 2021-04-15 08:28:00 Letitia Willingham [facility] VENOUS CORD GAS 2021-04-14 14:08:00 Jamila Ayala [facility] POCT GLUCOSE (AUTOMATED) 2021-04-14 13:17:00 Emperatriz Zapata [facility] SECTION 2021-04-14 13:09:00 Jasmin Jacob [facility] POCT GLUCOSE (AUTOMATED) 2021-04-14 10:54:00 Emperatriz Zapata [facility] POCT GLUCOSE (AUTOMATED) 2021-04-14 06:56:00 Emperatriz Zapata [facility] HB ABO GROUPING 2021-04-14 04:08:00 Jamila Ayala [facility] RHO (D) IMMUNE GLOBULIN 2021-04-14 04:08:00 Letitia Willingham [facility] HEPATITIS B SURFACE 2021-04-14 04:05:00 Jamila Ayala [facility] ANTIGEN [facility] GALV ONLY - SYPHILIS 2021-04-14 04:05:00 Jamila Aylaa [facility] IGG/IGM [facility] POCT GLUCOSE (AUTOMATED) 2021-04-14 03:41:00 Emperatriz Zapata, [facility] COVID-19 (ID NOW RAPID 2021-04-14 01:44:00 Emperatriz Zapata, [facility] TESTING) [facility] NON-STRESS TEST 2021-04-13 22:04:16 Akinsipe, Caio C [facility] POCT URINALYSIS 2021-04-13 20:53:00 Akinsipe, Caio C [facility] NON-STRESS TEST 2021-04-07 17:04:54 Akinsipe, Caio C [facility] POCT URINALYSIS 2021-04-07 16:04:00 Akinsipe, Caio C [facility] POCT URINALYSIS 2021-04-07 15:56:00 Akinsipe, Caio C [facility] PATIENT QUESTIONNAIRE 2021-04-07 05:01:00 Doctor Unassigned, Uni [facility] NON-STRESS TEST 2021-04-02 20:45:46 Wilma Craig [facility] POCT URINALYSIS 2021-04-02 18:48:00 Akinsipe, Caio C [facility] NON-STRESS TEST 2021-03-30 21:38:41 Akinsipe, Caio C [facility] POCT URINALYSIS 2021-03-30 20:52:00 Akinsipe, Caio C [facility] POCT URINALYSIS 2021-03-26 20:21:00 Akinsipe, Caio C [facility] NON-STRESS TEST 2021-03-26 19:46:25 Wilma Craig [facility] PATIENT QUESTIONNAIRE 2021-03-26 05:01:00 Doctor Unassigned, [facility] PATIENT QUESTIONNAIRE 2021-03-24 05:01:00 Doctor Unassigned, [facility] NON-STRESS TEST 2021-03-23 21:42:41 Caio Abarca [facility] POCT URINALYSIS 2021-03-23 20:58:00 Caio Abarca [facility] POCT GLUCOSE (AUTOMATED) 2021-03-20 21:57:00 Adum, Carolina Paz [facility] POCT GLUCOSE (AUTOMATED) 2021-03-20 17:18:00 Adum, Carolina Paz [facility] US PELVIS > 14 2021-03-20 16:27:19 Adum, Carolina Paz [facility] US BIOPHYSICAL 2021-03-20 15:50:00 Adum, Carolina Paz [facility] COVID-19 (ID NOW RAPID 2021-03-20 14:51:00 Adum, Carolina Paz [facility] TESTING) [facility] CONSENT/REFUSAL FOR 2021-03-20 13:33:05 Doctor Unasussy, [facility] DIAGNOSIS AND TREATMENT [facility] L&D VISIT (NON-DELIVERED) 2021-03-20 05:01:00 Doctor Unasussy, [facility] NON-STRESS TEST 2021-03-19 20:39:37 Caio Abarca [facility] POCT URINALYSIS 2021-03-19 19:06:00 Caio Abarca [facility] NON-STRESS TEST 2021-03-13 03:30:29 Wilma Criag [facility] POCT URINALYSIS 2021-02-26 18:09:00 Caio Abarca [facility] POCT URINALYSIS 2021-02-09 18:19:00 Caio Abarca [facility] TDAP VACCINE, >11 YRS, IM 2021-02-09 18:03:51 Caio Abarca [facility] PATIENT QUESTIONNAIRE 2021-02-09 05:01:00 Doctor Unassigned, Uni versity [facility] 3 HR GLUCOSE TOLERANCE 2021-01-26 16:15:00 Caio Abarca [facility] 2 HR GLUCOSE TOLERANCE 2021-01-26 15:15:00 Caio Abarca [facility] 1 HR GLUCOSE TOLERANCE 2021-01-26 14:15:00 AkinCaio anders [facility] POCT URINALYSIS 2021-01-26 13:21:00 AkinsiWilfrid neelyCaio C [facility] GLUCOSE FASTING 2021-01-26 13:10:00 AkinWilfrid andersilola C [facility] CBC WITH DIFF 2021-01-26 13:10:00 AkinWilfrid andersilola C [facility] GLUCOSE FASTING 2021-01-26 13:10:00 AkinsiDevyn neelyola C Univers y [facility] POCT URINALYSIS 2021-01-12 21:13:00 Akinsipe Caio C [facility] POCT URINALYSIS 2021-01-12 19:51:00 AkinsipeWilfridCaio C Univers y [facility] PATIENT CORRESPONDENCE 2020-12-19 06:01:00 Doctor Unassigned, Un [facility] (LETTERS, USPS [facility] DOCUMENTATION) POCT URINALYSIS 2020-12-11 19:13:00 AkinsipeWilfridCaio C Univers y [facility] ALPHA 2020-11-13 20:30:00 AkinsiWilfrid neelyCaio C Univers ity [facility] FETOPROTEIN-MATERNAL SER [facility] POCT URINALYSIS 2020-11-13 19:26:00 Akinsipe Caio C Univers ity [facility] US TRANSVAGINAL 2020-11-13 10:45:41 Fan Salazar [facility] URINALYSIS 2020-11-13 06:52:00 Fan Salazar [facility] LIPASE 2020-11-13 06:48:00 Fan Salazar [facility] HEPATIC FUNCTION PANEL 2020-11-13 06:48:00 Fan Salazar [facility] ([id number]) (ALB,T.PRO,BILI Medical Branch T,BU/BC,ALT,AST,ALK PHOS) BASIC METABOLIC PANEL 2020-11-13 06:48:00 Fan Salazar [facility] (NA, K, CL, CO2, GLUCOSE, Medica l Branch BUN, CREATININE, CA) CBC WITH DIFF 2020-11-13 06:48:00 Fan Salazar [place] [facility] PROTHROMBIN TIME / INR 2020-11-13 06:48:00 Fan Salazar [facility] ACTIVATED PARTIAL 2020-11-13 06:48:00 Fan Salazar [facility] CONSENT/REFUSAL FOR 2020-11-13 06:24:43 Doctor Unassigned, [facility] DIAGNOSIS AND TREATMENT [facility] FIRST TRIMESTER 2020-10-28 19:28:00 Caio Abarca [facility] FIRST TRIMESTER 2020-10-17 20:57:00 Caio Abarca [facility] CBC WITH DIFF 2020-10-16 17:36:00 Caio Abarca [facility] HEPATITIS B SURFACE 2020-10-16 17:36:00 Caio Abarca [facility] HIV 1/2 AG-AB WITH REFLEX 2020-10-16 17:36:00 Caio Abarca [facility] PAP SMEAR-LIQUID BASED-CP 2020-10-16 17:36:00 Caio Abarca [facility] GALV ONLY - SYPHILIS 2020-10-16 17:36:00 [facility]IGM [facility] SARS-COV-2 IGG 2020-10-16 17:36:00 Caio Abarca [facility] GLUCOSE 1 HOUR POST 2020-10-16 17:32:[address] [facility] HB ABO GROUPING 2020-10-16 17:32:00 Caio Abarca [facility] POCT URINALYSIS W/O 2020-10-16 15:59:00 Caio [facility]barca [facility] SPECIFIC GRAVITY [facility] POCT TEST 2020-10-16 15:57:00 Caio Abarca [facility] CONSENT/REFUSAL FOR 2020-10-16 15:33:37 Doctor Unasussy, [facility] DIAGNOSIS AND TREATMENT [place] [facility] POCT TEST 2019-07-10 18:48:00 Leadnra Estrada [facility] US TRANSVAGINAL 2019-06-30 05:21:25 Kulwinder Payne [facility] COMP. METABOLIC PANEL 2019-06-30 04:04:00 Kulwinder Payne [facility] ([id number]) [facility] TOTAL BETA HCG ASSAY 2019-06-30 04:04:00 Kulwinder Payne [facility] CBC WITH DIFFERENTIAL 2019-06-30 04:04:00 Kulwinder Payne [facility] URINALYSIS 2019-06-30 04:04:00 Kulwinder Payne [facility] POCT TEST 2019-06-30 04:03:00 Kulwinder Payne [facility] TYPE AND SCREEN 2019-06-30 04:00:00 Kulwinder Payne [facility] CONSENT/REFUSAL FOR 2019-06-30 03:21:32 Doctor Unasussy, [facility] DIAGNOSIS AND TREATMENT [place] [facility] POCT URINALYSIS 2019-06-20 19:02:00 Leandra Estrada [facility] POCT TEST 2019-06-20 19:02:00 Leandra Estrada [facility] POCT TEST 2019-06-19 20:07:00 Leandra Estrada [facility] ASSIGNMENT OF BENEFITS 2019-06-19 19:36:08 Doctor Unassigned, [facility] [place] Encounters Start End Encounter Admission Attending Care Care Encounter Source Date/Time Date/Time Type Type Clinicians Facility Department ID 2021-09-07 Emergency X [facility] [id number] Univers 04:29:49 [facility] 2021-09-06 Outpatient P [facility] [id number] Univers 19:15:30 ity of [facility] 2021-09-06 Emergency [facility] [id number] Univers 19:04:33 ity of [facility] 2021-09-05 Emergency [facility] [id number] Univers 15:34:17 ity of [facility] 2021-06-03 2021-06-03 Outpatient AKINSIPE, [facility] [id number] Univers 14:00:00 14:00:00 CAIO [id number] ity o f [facility] 2021-06-03 2021-06-03 Outpatient R [facility] [id number] Univers 13:30:00 13:30:00 ity of [facility] 2021-05-27 2021-05-27 Outpatient R [facility] [id number] Univers 10:00:00 10:00:00 [id number] ity [facility] 2021-05-26 2021-05-26 Outpatient R AKINSIPE, [facility] [id number] Univers 14:15:00 14:15:00 CAIO [id number] ity o f [facility] 2021-05-26 2021-05-26 Outpatient R AKINSIPE, [facility] [id number] Univers 14:15:00 14:15:00 CAIO ity o f [facility] 2021-05-05 2021-05-05 Routine Akinsipe, [facility] [id number] [id number] Univers 14:03:08 15:02:28 Caio Keyes [employer] 350.1.13.10 ity of Visit REGIONAL 4.2.7.2.686 Bib as MATERNAL [phone] Med ical & CHILD [address] [place] [address] 2021-05-05 2021-05-05 Outpatient R AKINSIPE, [facility] [id number] Univers 14:00:00 14:00:00 CAIO ity o f [facility] 2021-05-04 2021-05-05 Emergency [facility] 1.2.243.535 [id number] Univers 23:37:00 02:48:00 Carmen Osuna 350.1.13.10 i ty [facility] 4.2.7.2.686 [facility] [id number] [facility] 084 Branch 2021-05-04 2021-05-04 Nurse RADHA Regalado 1.2.840.114 [id number] Univers 00:00:00 00:00:00 Triage Erlinda JAQUEZ 350.1.13.10 it y of [facility] 4.2.7.2.686 Bib as [id number] [facility] 019 Branch 2021-04-23 2021-04-23 Outpatient [facility] [id number] Univers 15:30:00 15:30:00 [id number] ity [facility] 2021-04-23 2021-04-23 Outpatient R [facility] [id number] Univers 15:00:00 15:00:00 ity [facility] 2021-04-21 2021-04-21 [facility] 1.2 .840.114 [id number] Univers 13:02:57 14:26:32 Visit Caio Abarca [employer] 350.1.13. 10 ity [facility] 4.2.7.2.686 Bib as MATERNAL [id number] Med ical & CHILD [address] [place] [address] 2021-04-21 2021-04-21 Outpatient R [facility] [id number] Univers 13:00:00 13:00:00 CAIO foreman o f [facility] 2021-04-20 2021-04-20 Outpatient [facility] [id number] Univers 15:00:00 15:00:00 CAIO [id number] stepany o f [facility] 2021-04-16 2021-04-16 Outpatient R [facility] [id number] Univers 14:30:00 14:30:00 [id number] ity [facility] 2021-04-16 2021-04-16 Outpatient R [facility] [id number] Univers 14:30:00 14:30:00 ity [facility] 2021-04-14 2021-04-14 Surgery RADHA Jacob 1.2.840.114 [id number] Univers 08:00:00 09:48:00 Jasmin JAQUEZ 350.1.13.10 [id number] [address] 2021-04-13 2021-04-13 Routine Akinsipe, [facility] 1.2.368.428 [id number] Univers 15:28:56 17:04:32 Caio C [employer] 350.1.13.10 ity of Visit REGIONAL 4.2.7.2.686 Bib as MATERNAL [phone] [facility] ical & CHILD [address] [place] [address] 2021-04-13 2021-04-13 Outpatient R [facility] [id number] Univers 15:15:00 15:15:00 [id number] ity [facility] 2021-04-13 2021-04-13 Outpatient R [facility] [id number] Univers 15:15:00 15:15:00 ity [facility] 2021-04-10 2021-04-10 Outpatient R [facility] [id number] Univers 14:30:00 14:30:00 [id number] ity [facility] 2021-04-10 2021-04-10 Outpatient R [facility] [id number] Univers 14:30:00 14:30:00 ity [facility] 2021-04-07 2021-04-07 Outpatient R [facility] [id number] Univers 14:00:00 14:00:00 [id number] ity [facility] 2021-04-07 2021-04-07 Outpatient R [facility] [id number] Univers 14:00:00 14:00:00 ity [facility] 2021-04-07 2021-04-07 Routine Akinpe, [facility] 1.2.267.769 [id number] Univers 10:11:38 12:04:48 Caio C [employer] 350.1.13.10 ity of Visit REGIONAL 4.2.7.2.686 Bib as MATERNAL [phone] [facility] & CHILD [address] [place] [address] 2021-04-07 2021-04-07 Telephone Akinsipe, [facility] 1.2.840.114 [id number] Univers 00:00:00 00:00:00 Caio C STE[employer] 350.1.13.10 ity of [facility] 4.2.7.2.686 Bib as MATERNAL [id number] Med ical & CHILD 107 [facility] 2021-04-07 2021-04-07 Orders Doctor RADHA 1.2.840.114 [id number] Univers 00:00:00 00:00:00 Only Unassigned, LEONID 350.1.13.10 ity of [place] [facility] 4.2.7.2.686 Bib as [id number] [address] 2021-04-02 2021-04-02 Routine Risk, Kqn-Middw-Yk/High [facility] 1. 2.840.114 [id number] Univers 13:31:57 15:26:28 Wilma Craig [employer] 350.1.13.10 ity of Visit [facility] 4.2.7.2.686 Bib as MATERNAL [id number] [facility] ical & CHILD [address] [place] [address] 2021-04-02 2021-04-02 Outpatient [facility] [id number] Univers 13:30:00 13:30:00 [id number] ity of [facility] 2021-04-02 2021-04-02 Outpatient R [facility] [id number] Univers 13:30:00 13:30:00 ity [facility] 2021-03-31 2021-03-31 [facility] 1.2.840.114 [id number] Univers 00:00:00 00:00:00 Caio C STE[employer] 350.1.13.10 ity of [facility] 4.2.7.2.686 Bib as MATERNAL [phone] [facility] ical & CHILD 107 [facility] 2021-03-30 2021-03-30 [facility]ine [facility] 1.2.566.878 [id number] Univers 15:37:29 16:39:21 Caio C [employer] 350.1.13.10 ity of Visit [facility] 4.2.7.2.686 Bib as MATERNAL [id number] Med ical & CHILD 107 [facility] 2021-03-30 2021-03-30 Utility Tractor Operator Ultrasound, Garth [facility] 1.2 .840.114 [id number] Univers 14:39:21 15:09:21 Visit Fadi Newton Roland [employer] 350.1.13.10 ity of [facility] 4.2.7.2.686 Bib as MATERNAL [id number] [facility] ical & CHILD 369 [facility] 2021-03-30 2021-03-30 Outpatient R [facility] [id number] Univers 15:00:00 15:00:00 ity [facility] 2021-03-30 2021-03-30 Outpatient [facility] [id number] Univers 14:30:00 14:30:00 [id number] ity [facility] 2021-03-26 2021-03-26 Routine Risk, Xxp-Hoqbq-Ep/High [facility] 1. 2.840.114 [id number] Univers 13:37:31 14:44:38 Wilma Craig [employer] 350.1.13.10 ity of Visit [facility] 4.2.7.2.686 Bib as MATERNAL [id number] [facility] & CHILD [address] [place] [address] 2021-03-26 2021-03-26 Outpatient R [facility] [id number] Univers 13:30:00 13:30:00 [id number] ity of [facility] 2021-03-26 2021-03-26 Outpatient R [facility] [id number] Univers 13:30:00 13:30:00 ity of [facility] 2021-03-26 2021-03-26 Orders Doctor GARCIA 1.2.840.114 [id number] Univers 00:00:00 00:00:00 Only Unassigned, LEONID 350.1.13.10 ity of [place] [facility] 4.2.7.2.686 Bib as [id number] [address] 2021-03-24 2021-03-24 Orders Doctor GARCIA 1.2.840.114 [id number] Univers 00:00:00 00:00:00 Only Unassigned, LEONID 350.1.13.10 ity of [place] [facility] 4.2.7.2.686 Bib as [id number] [facility] 00[address] [place] 2021-03-23 2021-03-23 Routine Akinsipe, [facility] 1.2.751.155 [id number] Univers 15:36:45 16:43:15 Caio C [employer] 350.1.13.10 ity of Visit [facility] 4.2.7.2.686 Bib as MATERNAL [id number] [facility] & CHILD [address] [place] [address] 2021-03-23 2021-03-23 Outpatient R [facility] [id number] Univers 15:15:00 15:15:00 [id number] ity [facility] 2021-03-23 2021-03-23 Outpatient R [facility] [id number] Univers 15:15:00 15:15:00 ity [facility] 2021-03-20 2021-03-20 Emergency Fan Salazar [facility] 1.2.840. 114 [id number] Univers 08:53:00 19:25:00 Carolina Fenton [place] 350.1.13.10 ity of [place] 4.2.7.2.686 [facility] [phone] [facility] 083 [place] 2021-03-20 2021-03-20 Nurse RADHA Nuñez 1.2.840.114 [id number] Univers 00:00:00 00:00:00 Triage Stacey JAQUEZ 350.1.13.10 it y of [facility] 4.2.7.2.686 Bib as [id number] [facility] 019 [place] 2021-03-19 2021-03-19 Routine Akinsipe, Caio C [facility] 1.2.8 40.114 [id number] Univers 13:33:55 15:18:23 Wilma Craig [employer] 350.1.13.10 ity of Visit [facility] 4.2.7.2.686 Bib as MATERNAL [id number] [facility] ical & CHILD [address] [place] [address] 2021-03-19 2021-03-19 Outpatient R [facility] [id number] Univers 13:30:00 13:30:00 [id number] ity of [facility] 2021-03-19 2021-03-19 Outpatient R [facility] [id number] Univers 13:30:00 13:30:00 ity of [facility] 2021-03-16 2021-03-16 Outpatient R [facility] [id number] Univers 14:15:00 14:15:00 [id number] ity [facility] 2021-03-16 2021-03-16 Outpatient R [facility] [id number] Univers 14:15:00 14:15:00 ity [facility] 2021-03-12 2021-03-12 Routine Risk, Ufq-Kemqn-Wv/High [facility] 1. 2.840.114 [id number] Univers 13:35:49 14:57:06 Wilma Craig [employer] 350.1.13.10 ity of Visit REGIONAL 4.2.7.2.686 Bib as MATERNAL [id number] Med ical & CHILD 107 [facility] 2021-03-12 2021-03-12 Outpatient R [facility] [id number] Univers 13:30:00 13:30:00 [id number] [facility] 2021-03-12 2021-03-12 Outpatient R [facility] [id number] Univers 13:30:00 13:30:00 ity [facility] 2021-03-02 2021-03-02 Utility Tractor Operator [facility]tras[facility] 1.2 .840.114 [id number] Univers 13:37:42 14:07:42 Visit Jasmin Jacob [employer] 350.1.13.10 ity of REGIONAL 4.2.7.2.686 Bib as MATERNAL [id number] [facility] & CHILD 369 [facility] 2021-03-02 2021-03-02 Outpatient R [facility] [id number] Univers 13:30:00 13:30:00 [id number] ity [facility] 2021-03-02 2021-03-02 Outpatient P [facility] [id number] Univers 13:30:00 13:30:00 ity [facility] 2021-03-02 2021-03-02 Abstract [facility] 1.2.840.114 [id number] Univers 00:00:00 00:00:00 Caio C [employer] 350.1.13.10 ity of REGIONAL 4.2.7.2.686 Bib as MATERNAL [id number] [facility] & CHILD [address] [place] [address] 2021-02-26 2021-02-26 Routine Risk, Dbk-Txacv-Qr/High [facility] 1. 2.840.114 [id number] Univers 12:46:07 14:00:36 CraigWilma gordon Brandi [employer] 350.1.13.10 ity of Visit REGIONAL 4.2.7.2.686 Bib as MATERNAL [id number] [address] 2021-02-26 2021-02-26 Outpatient R [facility] [id number] Univers 13:00:00 13:00:00 ity of [facility] 2021-02-09 2021-02-09 Routine [facility] 1.2.764.525 [id number] Univers 12:49:30 13:56:28 Caio Keyes [employer] 350.1.13.10 ity of Visit REGIONAL 4.2.7.2.686 Bib as MATERNAL [id number] [address] 2021-02-09 2021-02-09 Outpatient R [facility] [id number] Univers 12:45:00 12:45:00 CAIO [id number] ity o [facility] 2021-02-09 2021-02-09 Outpatient R [facility] [id number] Univers 12:45:00 12:45:00 CAIO ity o f [facility] 2021-02-09 2021-02-09 Orders Doctor GARCIA 1.2.840.114 [id number] Univers 00:00:00 00:00:00 Only Unassigned, LEONID 350.1.13.10 ity of [place] [facility] 4.2.7.2.686 Bib as [id number] [address] 2021-02-04 2021-02-04 Telephone [facility] 1.2.840.114 [id number] Univers 00:00:00 00:00:00 Caio C [employer] 350.1.13.10 ity of REGIONAL 4.2.7.2.686 Bib as MATERNAL [id number] [facility] & [address] 2021-01-29 2021-01-29 Nurse Visit, [facility] Nurse [facility] 1.2 .840.114 [id number] Univers 14:06:04 14:37:42 Visit Devyn Abarcaola C [employer] 350.1.13. 10 ity of REGIONAL 4.2.7.2.686 Bib as MATERNAL [id number] [address] 2021-01-29 2021-01-29 Outpatient R [facility] [id number] Univers 14:00:00 14:00:00 [id number] ity of [facility] 2021-01-29 2021-01-29 Out[facility] [id number] Univers 14:00:00 14:00:00 CAIO ity o f [facility] 2021-01-27 2021-01-27 Telephone [facility] 1.2.840.114 [id number] Univers 00:00:00 00:00:00 Caio C [employer] 350.1.13.10 ity of REGIONAL 4.2.7.2.686 Bib as MATERNAL [id number] [address] 2021-01-26 2021-01-26 Routine [facility] 1.2.952.560 [id number] Univers 08:00:40 09:26:24 Caio C [employer] 350.1.13.10 ity of Visit REGIONAL 4.2.7.2.686 Bib as MATERNAL [id number] [address] 2021-01-26 2021-01-26 [facility] [id number] Univers 07:45:00 07:45:00 CAIO [id number] ity o f [facility] 2021-01-26 2021-01-26 Outpatient R AKINSIPE, [facility] [id number] Univers 07:45:00 07:45:00 CAIO ity o [facility] 2021-01-12 2021-01-12 Routine Akinsipe, [facility] 1.2.176.449 [id number] Univers 13:38:33 14:36:22 Caio Keyes [employer] 350.1.13.10 ity of Visit REGIONAL 4.2.7.2.686 Bib as MATERNAL [id number] [facility] & CHILD [address] [place] [address] 2021-01-12 2021-01-12 Outpatient R AKINSIPE, [facility] [id number] Univers 13:30:00 13:30:00 CAIO [id number] ity o [facility] 2021-01-12 2021-01-12 Outpatient R AKINSIPE, [facility] [id number] Univers 13:30:00 13:30:00 CAIO ity o [facility] 2021-01-08 2021-01-08 Outpatient R AKINSIPE, [facility] [id number] Univers 12:45:00 12:45:00 CAIO [id number] ity [facility] 2021-01-08 2021-01-08 Outpatient R AKINSIPE, [facility] [id number] Univers 12:45:00 12:45:00 CAIO ity o [facility] 2021-01-06 2021-01-06 Utility Tractor Operator Ultrasound, [facility] 1.2 .840.114 [id number] Univers 10:31:47 11:31:47 Visit Crista Talbot [employer] 350.1.13.10 ity of REGIONAL 4.2.7.2.686 Bib as MATERNAL [id number] [facility] & CHILD [address] [place] [address] 2021-01-06 2021-01-06 Outpatient R [facility] [id number] Univers 10:30:00 10:30:00 [id number] ity [facility] 2021-01-06 2021-01-06 Outpatient P [facility] [id number] Univers 10:30:00 10:30[facility] 2021-01-06 2021-01-06 Abstract Cindyflorinda [facility] 1.2.840.114 [id number] Univers 00:00:00 00:00:00 Caio Keyes STE[employer] 350.1.13.10 ity of [facility] 42.7.2.686 Bib as MATERNAL [id number] [facility] & CHILD [address] [place] [address] 2021-01-02 2021-01-02 Telephone Evans [facility] 1.2.840.114 [id number] Univers 00:00:00 00:00:00 Alba SPECIALTY 350.1.13.10 ity of [facility] [id number] [facility] [address] [place] 2020-12-19 2020-12-19 Utility Tractor Operator Lab, [facility] 1.2.840. [id number] Univers 08:34:55 09:02:04 Visit Caio Abarca STEEL TIER [id number]. 10 ity of [id number] Bib as MATERNAL [id number] [facility] & [address] 2020-12-19 2020-12-19 Outpatient R [facility] [id number] Univers 08:30:00 08:30:00 [id number] ity of [facility] 2020-12-19 2020-12-19 [facility] [id number] Univers 08:30:00 08:30:00 CAIO foreman o f [facility] 2020-12-19 2020-12-19 Orders Doctor GARCIA 1.2.840.114 [id number] Univers 00:00:00 00:00:00 Only Unassigned, LEONID 350.1.13.10 ity of [place] [address]686 Bib as [phone] [facility] [address] 2020-12-18 2020-12-18 Telemedici Alba Krueger [facility] 1.2.8 40.114 [id number] Univers 14:52:12 14:52:21 ne Visit Anthony Han [employer] 350.1.13.10 ity of REGIONAL 4.2.7.2.686 Bib as MATERNAL [phone] [facility] ical & CHILD 109 [facility] 2020-12-18 2020-12-18 Outpatient R [facility] [id number] -[id number] Univers 14:30:00 14:30:00 [id number] ity [facility] 2020-12-18 2020-12-18 Outpatient P [facility] [id number] Univers 14:30:00 14:30:00 ity of [facility] 2020-12-15 2020-12-15 Outpatient R [facility] [id number] -[id number] Univers 08:45:00 08:45:00 [id number] ity [facility] 2020-12-15 2020-12-15 Outpatient P [facility] [id number] Univers 08:45:00 08:45:00 ity [facility] 2020-12-11 2020-12-11 Routine Akinsipe, [facility] 1.2.585.305 [id number] Univers 12:59:14 13:42:42 Caio C [employer] 350.1.13.10 ity of Visit REGIONAL 4.2.7.2.686 Bib as MATERNAL [phone] [address] 2020-12-11 2020-12-11 Outpatient R AKINSIPE, [facility] [id number] 0Q-20 Univers 13:00:00 13:00:00 CAIO [id number] ity o [facility] 2020-12-11 2020-12-11 Outpatient R AKINSIPE, [facility] [id number] Univers 13:00:00 13:00:00 CAIO ity o [facility] 2020-11-13 2020-11-13 Routine Akinsipe, [facility] 1.2.867.957 [id number] Univers 13:15:18 14:23:51 Caio C [employer] 350.1.13.10 ity of Visit REGIONAL 4.2.7.2.686 Bib as MATERNAL [phone] [facility] & [address] 2020-11-13 2020-11-13 Outpatient R AKINSIPE, [facility] [id number] 0Q-20 Univers 13:00:00 13:00:00 CAIO [id number] ity o f [facility] 2020-11-13 2020-11-13 Outpatient R RIMA, [facility] [id number] Univers 13:00:00 13:00:00 CAIO yingy o f [facility] 2020-11-13 2020-11-13 Emergency [facility] 1.2.519.979 [id number] Univers 00:26:00 06:01:00 Fan [place] 350.1.13.10 i ty [facility] [place].2.7.2.[place] [phone] [facility] [address] 2020-11-12 2020-11-12 Nurse RADHA Harrison 1.2.914.480 [id number] Univers 00:00:00 00:00:00 Triage Kaushik JAQUEZ 350.1.13.10 it y of [facility] 4.2.7.2.686 Bib as [phone] [facility] [address] 2020-11-03 2020-11-03 Telephone [facility] 1.2.840.114 [id number] Univers 00:00:00 00:00:00 Caio Keyes [employer] 350.1.13.10 ity of [facility] 4.2.7.2.686 Bib as MATERNAL [phone] Med ical & CHILD [address] [place] [address] 2020-10-29 2020-10-29 Telephone [facility] 1.2.071.948 [id number] Univers 00:00:00 00:00:00 Emmett Watkins STE[employer] 350.1.13.10 ity of [facility] 4.2.7.2.686 Bib as MATERNAL [phone] Med ical & CHILD [address] [place] [address] 2020-10-28 2020-10-28 Utility Tractor Operator Lab, [facility] UNIVERSIT 1.2.84 0.114 [id number] Univers 13:41:58 13:50:03 Visit Jasmin Jacob [facility] 350.1.13.10 ity of [facility] 4.2.7.2.[place] [phone] [facility] [address] 2020-10-28 2020-10-28 Utility Tractor Operator 3, [facility] UNIVERSIT 1 .2.840.114 [id number] Univers 12:49:10 13:49:34 Visit Cecil Jasmin Guerra [facility] 350.1.13.10 ity of CL[place] 4[place].2.[place] [phone] [facility] [address] [place] 2020-10-28 2020-10-28 Outpatient R [facility] [id number] -[id number] Univers 13:00:00 13:00:00 [id number] ity of [facility] 2020-10-28 2020-10-28 Outpatient P [facility] [id number] Univers 13:00:00 13:00:00 ity of [facility] 2020-10-28 2020-10-28 Case Gene [facility] 1.2.779.152 [id number] Univers 00:00:00 00:00:[address] [facility] 350.1.13.10 ity of [place].2.[place] [phone] [address] 2020-10-28 2020-10-28 Abstract [facility] 1.2.840.114 [id number] Univers 00:00:00 00:00:00 Caio C [employer] 350.1.13.10 ity of REGIONAL 4.2.7.2.686 Bib as MATERNAL [phone] [facility] CHILD [address] [place] [address] 2020-10-28 2020-10-28 Abstract [facility] 1.2.840.114 [id number] Univers 00:00:00 00:00:00 Caio C STE[employer] 350.1.13.10 ity of REGIONAL 4.2.7.2.686 Bib as MATERNAL [phone] [facility] ical & CHILD [address] [place] [address] 2020-10-20 2020-10-20 Outpatient R [facility] [id number] -[id number] Univers 08:15:00 08:15:00 [id number] ity of [facility] 2020-10-20 2020-10-20 Outpatient R [facility] [id number] Univers 08:15:00 08:15:00 ity [facility] 2020-10-20 2020-10-20 Utility Tractor Operator Lab, Saturnino-Rmchp [facility] 1.2.840. 114 [id number] Univers 08:01:19 08:09:29 Visit Rima Caio C [employer] 350.1.13. 10 ity of REGIONAL 4.2.7.2.686 Bib as MATERNAL [id number] Med ical & CHILD [address] [place] [address] 2020-10-20 2020-10-20 Abstract [facility] 1.2.840.114 [id number] Univers 00:00:00 00:00:00 Caio C [employer] 350.1.13.10 ity of REGIONAL 4.2.7.2.686 Bib as MATERNAL [phone] Med ical & CHILD [address] [place] [address] 2020-10-17 2020-10-17 Utility Tractor Operator 5, [facility] Room UNIVERSIT 1 .2.840.114 [id number] Univers 14:06:08 16:19:13 Visit Calvin Walsh [facility] 350.1.13.10 ity of CL[place] 4[place].2.[place] [id number] [address] 2020-10-17 2020-10-17 Outpatient R [facility] [id number] -[id number] Univers 14:15:00 14:15:00 [id number] ity of [facility] 2020-10-17 2020-10-17 Outpatient P [facility] [id number] Univers 14:15:00 14:15:00 ity of [facility] 2020-10-17 2020-10-17 Telephone [facility] 1.2.840.114 [id number] Univers 00:00:00 00:00:00 Caio C STE[employer] 350.1.13.10 ity of REGIONAL 4.2.7.2.686 Ibb as MATERNAL [phone] Med ical & CHILD [address] [place] [address] 2020-10-16 2020-10-16 Initial [facility] 1.2.707.020 [id number] Univers 09:47:12 11:16:52 Caio C [employer] 350.1.13.10 ity of Visit REGIONAL 4.2.7.2.686 Bib as MATERNAL [phone] Med ical & CHILD 107 [facility] 2020-10-16 2020-10-16 Outpatient [facility] [id number] -[id number] Univers 09:30:00 09:30:00 ity [facility] 2020-10-16 2020-10-16 [facility] [id number] Univers 09:30:00 09:30:00 CAIO mccrary [facility] 2020-10-16 2020-10-16 Orders Doctor RADHA 1.2.840.114 [id number] Univers 00:00:00 00:00:00 Only Unassigned, LEONID 350.1.13.10 ity of [place] [facility] 4.2.7.2.686 Bib as [phone] [address] 2020-08-28 2020-08-28 Outpatient R [facility] [id number] -[id number] Univers 13:00:00 13:00:00 [id number] ity [facility] 2020-08-28 2020-08-28 Outpatient R [facility] [id number] Univers 13:00:00 13:00:00 CAIO mccrary [facility] 2019-07-12 2019-07-12 Routine Trimester, [facility]-1st UNIVERSIT 1.2.840.114 [id number] Univers 09:51:54 10:25:21 IngramAdonis [facility] 350.1.13.10 ity of Visit CLINICS 4.2.7.2.[place] [phone] [facility] [address] [place] 2019-07-11 2019-07-11 Routine [facility] 1.2.908.199 [id number] Univers 09:50:06 10:05:06 Leandra N [employer] 350.1.13.10 i ty of Visit REGIONAL 4.2.7.2.686 Bib as MATERNAL [phone] Med ical & CHILD 107 [facility] 2019-07-11 2019-07-11 Telephone [facility] 1.2.840.114 [id number] Univers 00:00:00 00:00:00 Leandra N [employer] 350.1.13.10 it y of REGIONAL 4.2.7.2.686 Bib as MATERNAL [phone] Med ical & CHILD [address] [place] [address] 2019-07-10 2019-07-10 Office Sean WIROJELIO 1.2.679.052 [id number] Univers 13:15:51 14:09:36 Visit Leandra Velásquez STE[employer] 350.1.13.10 it y of [facility] 4.2.7.2.686 Bib as MATERNAL [phone] [facility] & CHILD [address] [place] [address] 2019-07-02 2019-07-02 Routine Sean [facility] 1.2.838.373 [id number] Univers 14:24:22 15:05:46 Leandra Velásquez [employer] 350.1.13.10 i ty of Visit [facility] 4.2.7.2.686 Bib as MATERNAL [phone] [facility] & CHILD [address] [place] [address] 2019-06-29 2019-06-30 Emergency Dat [facility] 1.2.665.637 [id number] Univers 22:35:55 01:15:00 Kulwinder Osuna 350.1.13.10 i ty of [place] 4.2.7.2.686 [place] [facility] [id number] [facility] [address] [place] 2019-06-29 2019-06-29 Orders Doctor RADHA 1.2.840.114 [id number] Univers 00:00:00 00:00:00 Only Unassigned, LEONID 350.1.13.10 ity of [place] [facility] 4.2.7.2.686 Bib as [phone] [facility] [address] [place] 2019-06-20 2019-06-20 Initial Sean [facility] 1.2.188.637 [id number] Univers 13:45:52 14:34:12 Leandra Velásquez STE[employer] 350.1.13.10 i ty of Visit [facility] 4.2.7.2.686 Bib as MATERNAL [phone] [facility] & CHILD [address] [place] [address] 2019-06-19 2019-06-19 Nurse Visit, Saturnino-Rmch[facility] Nurse [facility] 1.2 .840.114 [id number] Univers 14:50:36 15:29:07 Visit Leandra Estrada [employer] 350.1.13.10 ity of [facility] 4.2.7.2.686 Bib as MATERNAL [phone] Med ical & CHILD 107 [facility] 2019-06-19 2019-06-19 Orders Doctor RADHA 1.2.840.114 [id number] Univers 00:00:00 00:00:00 Only Unassigned, LEONID 350.1.13.10 ity of [place] [facility] 4.2.7.2.686 Bib as [phone] [address] Results Test Description Test Time Test Comments Results Result Comments Source TOTAL BETA HCG ASSAY 2021-05-05 07:22:58 Test Item Value Reference Range Interpretation Comme nts BETA HCG (test code = <2.39 See_Comment [Auto mated message] The 7308485703) system which ge nerated this result transmit nancy reference range : Non- fe male and male patients: <5 mIU/mL. The reference r danny was not used to interpr et this result as елена l/abnormal. CLEMENTE (test code = CLEMENTE) Gestational Age ?Range (mIU/mL) 1-10 ?Weeks ?15-16133105-90 Weeks ?30648-00189007-47 Weeks ?5803-45370850-59 Weeks ?7707-701036 Biotin has been reported to cause a negative bias, interpret results relative to patient's use of biotin. [facility] - ONCE [id number] 06:02:00 Test Item Value Reference Range Interpretation Comments ABO & RH (test code O Positive Performe d at [facility] = 20) Laboratory [facility] Blood Bank[address] [place], [place] [address]Toll Free: [phone] A No. [id number] IAT (test code = Negative Performed a t [facility] 1185) Laboratory [facility] Blood [address] [place], [place] [address]Toll Free: [phone] A No. [id number] [facility]OLIC PANEL (00304)2021-05-05 05:43:59 Test Item Value Reference Range Interpretation Comments NA (test code = 138 mmol/L 135-145 2800823959) K (test code = 4.2 mmol/L 3.5-5.0 3726827875) CL (test code = 101 mmol/L 98-108 3180695888) CO2 TOTAL (test code = 28 mmol/L 23-31 6276905013) AGAP (test code = 2-16 0168142166) BUN (test code = 13 mg/dL 7-23 0863850054) GLUCOSE (test code = 150 mg/dL 70-110 H 7302760543) CREATININE (test code = 0.65 mg/dL 0.50-1.04 6417434301) TOTAL BILI (test code = 0.9 mg/dL 0.1-1.7 2115275866) CALCIUM (test code = 9.1 mg/dL 8.6-10.6 2607923799) T PROTEIN (test code = 8.3 g/dL 6.3-8.2 H 7445082146) ALBUMIN (test code = 4.6 g/dL 3.5-5.0 6053927644) ALK PHOS (test code = 105 U/L 34-122 8618812138) ALTv (test code = 105 U/L 5-35 H 1742-6) AST(SGOT) (test code = 119 U/L 13-40 H 5904826403) eGFR (test code = mL/min/1.73m2 3451164433) CLEMENTE (test code = CLEMENTE) Association of Glomerular Filtration Rate (GFR) and Staging of Kidney Disease* + --+ --+ ------+| GFR (mL/min/1.73 m2) ?| With Kidney Damage ?| ?Without Kidney Damage+ --------+ --------+ +| ?>90 ?| ?Stage one ?| ? Normal ?+ ---+ ---+ -------+| ?60-89 ?| ?Stage two ?| ? Decreased GFR ? + --+ --+ ------+| ?30-59 ?| ?Stage three ?| ? Stage three ? + --+ --+ ------+| ?15-29 ?| ?Stage four ? | ? Stage four ?+ ---+ ---+ -------+| ?<15 (or dialysis) ? ?| ?Stage five ? | ? Stage five ?+ ---+ ---+ -------+ *Each stage assumes the associated GFR level has been in effect for at least three months. ?Stages 1 to 5, with or without kidney disease, indicate chronic kidney disease. Notes: Determination of stages one and two (with eGFR >59mL/min/1.73 m2) requires estimation of kidney damage for at least three months as defined by structural or functional abnormalities of the kidney, manifested by either:Pathological abnormalities or Markers of kidney damage (including abnormalities in the composition of the blood or urine or abnormalities in imaging tests). Lab Interpretation Abnormal (test code = 39919-5) [facility] WITH [id number] 05:27:58 Test Item Value Reference Range Interpretation Comments WBC (test code = See_Comment [Automated 6652-2) message] The sy stem which generated this result transmitted reference range : 4.30 - 11.10 10*3/?L. The reference range was not used to interpret this result as normal/abnormal . RBC (test code = See_Comment [Automated 009-8) message] The sy stem which generated this result transmitted reference range : 3.93 - 5.25 10*6/?L. The reference range was not used to interpret this result as normal/abnormal . HGB (test code = 11.7 g/dL 11.6-15.0 718-7) HCT (test code = 37.8 % 35.7-45.2 4544-3) MCV (test code = 78.1 fL 80.6-95.5 L 787-2) MCH (test code = 24.2 pg 25.9-32.8 L 785-6) MCHC (test code = 31.0 g/dL 31.6-35.1 L 786-4) RDW-SD (test code = 43.3 fL 39.0-49.9 25396-7) RDW-CV (test code = 15.4 % 12.0-15.5 788-0) PLT (test code = See_Comment [Automated 777-3) message] The sy stem which generated this result transmitted reference range : 166 - 358 10*3/ ?L. The reference r danny was not used to interpret this result as normal/abnormal . MPV (test code = 11.4 fL 9.5-12.9 85663-9) NRBC/100 WBC (test See_Comment [Automat ed code = 1876828086) message] The system which generated this result transmitted reference range : 0.0 - 10.0 /100 WBCs. The refer ence range was not u sed to interpret th is result as normal/abnormal . NRBC x10^3 (test code <0.01 See_Comment [Auto mated = 2464075381) message] The s ystem which generated this result transmitted reference range : 10*3/?L. The reference range was not used to interpret this result as normal/abnormal . GRAN MAT (NEUT) % 66.3 % (test code = 770-8) IMM GRAN % (test code 0.40 % = 7929322212) LYMPH % (test code = 25.3 % 736-9) MONO % (test code = 4.4 % 5905-5) EOS % (test code = 3.2 % 713-8) BASO % (test code = 0.4 % 706-2) GRAN MAT x10^3(ANC) 7.04 10*3/uL 1.88-7.09 (test code = 5009061371) IMM GRAN x10^3 (test 0.04 10*3/uL 0.00-0.06 code = 4563483092) LYMPH x10^3 (test code 2.69 10*3/uL 1.32-3.29 = 731-0) MONO x10^3 (test code 0.47 10*3/uL 0.33-0.92 = 742-7) EOS x10^3 (test code = 0.34 10*3/uL 0.03-0.39 711-2) BASO x10^3 (test code 0.04 10*3/uL 0.01-0.07 = 704-7) Lab Interpretation Abnormal (test code = 68636-3) [facility] with [id number] 08:52:55 Test Item Value Reference Range Interpretation Comments WBC (test code = See_Comment H [Automated 6690-2) message] The sy stem which generated this result transmitted reference range : 4.30 - 11.10 10*3/?L. The reference range was not used to interpret this result as normal/abnormal . RBC (test code = See_Comment [Automated 789-8) message] The sy stem which generated this result transmitted reference range : 3.93 - 5.25 10*6/?L. The reference range was not used to interpret this result as normal/abnormal . HGB (test code = 10.2 g/dL 11.6-15.0 L 718-7) HCT (test code = 32.3 % 35.7-45.2 L 4544-3) MCV (test code = 78.2 fL 80.6-95.5 L 787-2) MCH (test code = 24.7 pg 25.9-32.8 L 785-6) MCHC (test code = 31.6 g/dL 31.6-35.1 786-4) RDW-SD (test code = 42.6 fL 39.0-49.9 24177-2) RDW-CV (test code = 15.1 % 12.0-15.5 788-0) PLT (test code = See_Comment [Automated 777-3) message] The sy stem which generated this result transmitted reference range : 166 - 358 10*3/ ?L. The reference r danny was not used to interpret this result as normal/abnormal . MPV (test code = 12.0 fL 9.5-12.9 49591-5) NRBC/100 WBC (test See_Comment [Automat ed code = 8081408147) message] The system which generated this result transmitted reference range : 0.0 - 10.0 /100 WBCs. The refer ence range was not u sed to interpret th is result as normal/abnormal . NRBC x10^3 (test code <0.01 See_Comment [Auto mated = 3382562688) message] The s ystem which generated this result transmitted reference range : 10*3/?L. The reference range was not used to interpret this result as normal/abnormal . GRAN MAT (NEUT) % 75.6 % (test code = 770-8) IMM GRAN % (test code 0.50 % = 5947516058) LYMPH % (test code = 18.0 % 736-9) MONO % (test code = 4.8 % 5905-5) EOS % (test code = 0.9 % 713-8) BASO % (test code = 0.2 % 706-2) GRAN MAT x10^3(ANC) 9.86 10*3/uL 1.88-7.09 H (test code = 6838285574) IMM GRAN x10^3 (test 0.07 10*3/uL 0.00-0.06 H code = 0481204986) LYMPH x10^3 (test code 2.34 10*3/uL 1.32-3.29 = 731-0) MONO x10^3 (test code 0.62 10*3/uL 0.33-0.92 = 742-7) EOS x10^3 (test code = 0.12 10*3/uL 0.03-0.39 711-2) BASO x10^3 (test code <0.03 0.01-0.07 = 704-7) Lab Interpretation Abnormal (test code = 96718-3) [facility]D) IMMUNE [id number] 16:23:04 Test Item Value Reference Range Interpretation Comments RHIG CANDIDATE? No- see comment Patient i s not a (test code = candidate for R [facility]- 5055) Patient is Rh Positive.Perfor med at [facility] Laboratory Services - [facility] Blood [address] [place] [address]Bwbb Free: [phone] A No. [id number] [facility] HospitalARTERIAL CORD [id number] 14:24:11 Test Item Value Reference Range Interpretation Comments BASE EXCESS, CORD (test mEq/L code = 3869768701) AC PH, CORD (BEAKER) 7.18-7.38 L (test code = 7275225104) PC02, CORD (test code = See_Comment H [Au tomated message] 7298656635) The system [employer] generated this result transmitted ref erence range: 32 - 66 mmHg. The reference r danny was not used to interpret this result as normal/abnor mal. PO2, CORD (test code = Alexy ne did not read 3316985206) BICARBONATE, CORD (test See_Comment H [Au tomated message] code = 3701334257) The syste m which generated this result transmitted ref erence range: 17 - 27 mEq/L. The reference r danny was not used to interpret this result as normal/abnor mal. Lab Interpretation (test Abnormal code = 15748-4) [facility] CORD [id number] 14:20:49 Test Item Value Reference Range Interpretation Comments VENOUS BASE EXCESS, CORD mEq/L (test code = 0616519924) VENOUS PH, CORD (test 7.25-7.45 L code = 0058966646) VENOUS PC02, CORD (test See_Comment H [Au tomated message] code = 1675140535) The syste m which generated this result transmitted ref erence range: 27 - 49 mmHg. The reference r danny was not used to interpret this result as normal/abnor mal. VENOUS PO2, CORD (test See_Comment L [Aut omated message] code = 8840909674) The syste m which generated this result transmitted ref erence range: 17 - 41 mmHg. The reference r danny was not used to interpret this result as normal/abnor mal. VENOUS BICARBONATE, CORD See_Comment [A utomated message] (test code = 3055366553) The system which generated this result transmitted ref erence range: 12 - 29 mEq/L. The reference r danny was not used to interpret this result as normal/abnor mal. Lab Interpretation (test Abnormal code = 87735-2) [facility]GAL[facility] ONLY - SYPHILIS [id number]/[id number] 14:14:40 Test Item Value Reference Range Interpretation Comments Syphilis IgG/IgM (test Non-reactive Non-reactive code = 62560-1) CLEMENTE (test code = CLEMENTE) Non-reactive - No serologic evidence of T. pallidum infection. Cannot exclude incubating or early syphilis. Submit a second specimen in 2-4 weeks if syphilis is clinically suspected. Equivocal - Further testing to follow. Reactive - Further testing to follow. Lab Interpretation (test Normal code = 58775-0) [facility] GLUCOSE (AUTOMATED)2021-04-14 13:28:10 Test Item Value Reference Range Interpretation Comments POCT GLU (test code = 0347717695) 95 mg/dL 70-110 Lab Interpretation (test code = Normal 47850-0) [facility] HospitalFETAL NON-STRESS [id number] 13:18:46NST: cat 1, nonreactive, no ctx, minimal accels, neg decls, moderate variability General acute hospital GLUCOSE (AUTOMATED)2021-04-14 10:56:19 Test Item Value Reference Range Interpretation Comments POCT GLU (test code = 4507760995) 102 mg/dL 70-110 Lab Interpretation (test code = Normal 47786-2) General acute hospital GLUCOSE (AUTOMATED)2021-04-14 06:57:57 Test Item Value Reference Range Interpretation Comments POCT GLU (test code = 9559075367) 118 mg/dL 70-110 H Lab Interpretation (test code = Abnormal 14142-9) [facility] HospitalHepatitis B Surface [id number] 05:51:27 Test Item Value Reference Range Interpretation Comments HBsAg Semi-Quantitative (test code = Negative Negative 5195-3) [facility] Screen - ONCE [id number] 05:09:20 Test Item Value Reference Range Interpretation Comments ABO & RH (test code O POSITIVE Performe d at [facility] = 20) Laboratory [facility] Blood Bank3 [address] [facility] s [address]Tdrj Free: [phone] A No. [id number] IAT (test code = Negative Performed a t [facility] 1185) Laboratory [facility] Blood Bank3 [address] [facility] s [address]Gjzm Free: [phone] A No. [id number] General acute hospital GLUCOSE (AUTOMATED)2021-04-14 03:42:17 Test Item Value Reference Range Interpretation Comments POCT GLU (test code = 8113008182) 99 mg/dL 70-110 Lab Interpretation (test code = Normal 99223-9) [facility]COVID-[facility] (ID NOW RAPID TESTING)2021-04-14 02:06:53 Test Item Value Reference Range Interpretation Comments SARS-CoV-2 Rapid ID NOW Positive Not Detected A (test code = 93795-5) CLEMENTE (test code = CLEMENTE) ID NOW COVID-19 Assay is an isothermal nucleic acid amplification test intended for the qualitative detection of nucleic acid from SARS-CoV-2 viral RNA in nasopharyngeal (CELLARS SUPERVISOR) specimens. It is used under Emergency Use Authorization (EUA) by FDA. The limit of detection (LOD) of the assay is 125 Genome Equivalents/mL. A positive result is indicative of the presence of SARS-CoV-2 RNA. ?Clinical correlation with patient history and other diagnostic information is necessary to determine patient infection status. A negative (Not Detected) result does not preclude SARS-CoV-2 infection. In patients with clinical symptoms and other tests that are consistent with SARS-CoV-2 infection, negative results should be treated as presumptive negative and a new specimen should be tested with alternative PCR molecular test. Invalid: Please collect a new specimen for repeat patient testing if clinically indicated. Lab Interpretation Abnormal (test code = 08613-3) General acute hospital URINALYSIS W SPECIFIC [id number] 20:56:00 Test Item Value Reference Range Interpretation Comments POCT U SP GRAV (test code = . 1.005-1.025 3255) POCT PH U (test code = 3254) 6 mg/dl 5-8 POCT U LEUK EST (test code = trace Negative - Negative 3263) POCT U NIT (test code = 3262) negative Negative - Negative POCT U PROT (test code = 3259) trace Negative - Negative POCT U GLU (test code = 3256) negative Negative - Negative POCT U KETONE (test code = 3258) negative Negative - Negative POCT U UROBILI (test code = . 0.2-1 3260) POCT U BILI (test code = 3261) . Negative - Negative POCT U BLD (test code = 3257) . Negative - Negative POCT U COLOR (test code = 3266) POCT U APPEAR (test code = 3267) [facility] [id number] 17:05:32NST: cat 1, reactive/reassuring, no ctx, +accels, neg decls, moderate variability General acute hospital URINALYSIS W SPECIFIC [id number] 16:04:00 Test Item Value Reference Range Interpretation Comments POCT U SP GRAV (test code = . 1.005-1.025 3255) POCT PH U (test code = 3254) . 5-8 POCT U LEUK EST (test code = . Negative - Negative 3263) POCT U NIT (test code = 3262) . Negative - Negative POCT U PROT (test code = 3259) trace Negative - Negative POCT U GLU (test code = 3256) negative Negative - Negative POCT U KETONE (test code = 3258) . Negative - Negative POCT U UROBILI (test code = . 0.2-1 3260) POCT U BILI (test code = 3261) . Negative - Negative POCT U BLD (test code = 3257) . Negative - Negative POCT U COLOR (test code = 3266) POCT U APPEAR (test code = 3267) General acute hospital URINALYSIS W SPECIFIC [id number] 15:58:00 Test Item Value Reference Range Interpretation Comments POCT U SP GRAV (test code = 3255) . 1.005-1.025 POCT PH U (test code = 3254) . 5-8 POCT U LEUK EST (test code = 3263) . Negative - Negative POCT U NIT (test code = 3262) . Negative - Negative POCT U PROT (test code = 3259) trace Negative - Negative POCT U GLU (test code = 3256) neg Negative - Negative POCT U KETONE (test code = 3258) . Negative - Negative POCT U UROBILI (test code = 3260) . 0.2-1 POCT U BILI (test code = 3261) . Negative - Negative POCT U BLD (test code = 3257) . Negative - Negative POCT U COLOR (test code = 3266) POCT U APPEAR (test code = 3267) [facility] [id number] 20:47:13NST reactive and reassuring, no [facility] [id number] 18:59:00 Test Item Value Reference Range Interpretation Comments POCT U SP GRAV (test code = . 1.005-1.025 3255) POCT PH U (test code = 3254) 7 mg/dl 5-8 POCT U LEUK EST (test code = trace Negative - Negative 3263) POCT U NIT (test code = 3262) neg Negative - Negative POCT U PROT (test code = 3259) trace Negative - Negative POCT U GLU (test code = 3256) neg Negative - Negative POCT U KETONE (test code = 3258) small Negative - Negative POCT U UROBILI (test code = . 0.2-1 3260) POCT U BILI (test code = 3261) . Negative - Negative POCT U BLD (test code = 3257) neg Negative - Negative POCT U COLOR (test code = 3266) POCT U APPEAR (test code = 3267) Lab Interpretation (test code = Abnormal 57554-5) [facility] [id number] 21:39:09NST: cat 1, reactive/reassuring, no ctx, +accels, neg decls, moderate variability General acute hospital URINALYSIS W SPECIFIC [id number] 20:52:00 Test Item Value Reference Range Interpretation Comments POCT U SP GRAV (test code = 3255) . 1.005-1.025 POCT PH U (test code = 3254) . 5-8 POCT U LEUK EST (test code = 3263) . Negative - Negative POCT U NIT (test code = 3262) . Negative - Negative POCT U PROT (test code = 3259) 1+ Negative - Negative POCT U GLU (test code = 3256) Neg Negative - Negative POCT U KETONE (test code = 3258) . Negative - Negative POCT U UROBILI (test code = 3260) . 0.2-1 POCT U BILI (test code = 3261) . Negative - Negative POCT U BLD (test code = 3257) . Negative - Negative POCT U COLOR (test code = 3266) POCT U APPEAR (test code = 3267) General acute hospital URINALYSIS W SPECIFIC [id number] 20:21:00 Test Item Value Reference Range Interpretation Comments POCT U SP GRAV (test code = 3255) . 1.005-1.025 POCT PH U (test code = 3254) 5 mg/dl 5-8 POCT U LEUK EST (test code = Trace Negative - Negative 3263) POCT U NIT (test code = 3262) Neg Negative - Negative POCT U PROT (test code = 3259) Trace Negative - Negative POCT U GLU (test code = 3256) Neg Negative - Negative POCT U KETONE (test code = 3258) None Negative - Negative POCT U UROBILI (test code = 3260) . 0.2-1 POCT U BILI (test code = 3261) . Negative - Negative POCT U BLD (test code = 3257) Trace Negative - Negative POCT U COLOR (test code = 3266) POCT U APPEAR (test code = 3267) [facility] NON-STRESS [id number] 19:47:27NST reactive and reassuring, no ctx notedUnMethod[facility] NON-STRESS [id number] 21:43:12NST: cat 1, reactive/reassuring, no ctx, +accels, neg decls, moderate variabilityUnMethodist Hospital [facility] NON-STRESS [id number] 21:43:12NST: cat 1, reactive/reassuring, no ctx, +accels, neg decls, moderate variabilityUnMethodist Hospital [facility] NON-STRESS [id number] 21:43:12NST: cat 1, reactive/reassuring, no ctx, +accels, neg decls, moderate variabilityUnCozard [facility] W SPECIFIC [id number] 20:58:00 Test Item Value Reference Range Interpretation Comments POCT U SP GRAV (test code = 3255) . 1.005-1.025 POCT PH U (test code = 3254) . 5-8 POCT U LEUK EST (test code = 3263) . Negative - Negative POCT U NIT (test code = 3262) . Negative - Negative POCT U PROT (test code = 3259) 1+ Negative - Negative POCT U GLU (test code = 3256) Neg Negative - Negative POCT U KETONE (test code = 3258) . Negative - Negative POCT U UROBILI (test code = 3260) . 0.2-1 POCT U BILI (test code = 3261) . Negative - Negative POCT U BLD (test code = 3257) . Negative - Negative POCT U COLOR (test code = 3266) POCT U APPEAR (test code = 3267) General acute hospital URINALYSIS W SPECIFIC [id number] 20:58:00 Test Item Value Reference Range Interpretation Comments POCT U SP GRAV (test code = 3255) . 1.005-1.025 POCT PH U (test code = 3254) . 5-8 POCT U LEUK EST (test code = 3263) . Negative - Negative POCT U NIT (test code = 3262) . Negative - Negative POCT U PROT (test code = 3259) 1+ Negative - Negative POCT U GLU (test code = 3256) Neg Negative - Negative POCT U KETONE (test code = 3258) . Negative - Negative POCT U UROBILI (test code = 3260) . 0.2-1 POCT U BILI (test code = 3261) . Negative - Negative POCT U BLD (test code = 3257) . Negative - Negative POCT U COLOR (test code = 3266) POCT U APPEAR (test code = 3267) General acute hospital URINALYSIS W SPECIFIC [id number] 20:58:00 Test Item Value Reference Range Interpretation Comments POCT U SP GRAV (test code = 3255) . 1.005-1.025 POCT PH U (test code = 3254) . 5-8 POCT U LEUK EST (test code = 3263) . Negative - Negative POCT U NIT (test code = 3262) . Negative - Negative POCT U PROT (test code = 3259) 1+ Negative - Negative POCT U GLU (test code = 3256) Neg Negative - Negative POCT U KETONE (test code = 3258) . Negative - Negative POCT U UROBILI (test code = 3260) . 0.2-1 POCT U BILI (test code = 3261) . Negative - Negative POCT U BLD (test code = 3257) . Negative - Negative POCT U COLOR (test code = 3266) POCT U APPEAR (test code = 3267) General acute hospital GLUCOSE (AUTOMATED)2021-03-20 22:07:22 Test Item Value Reference Range Interpretation Comments POCT GLU (test code = 9889879981) 129 mg/dL 70-110 H Lab Interpretation (test code = Abnormal 54778-5) General acute hospital GLUCOSE (AUTOMATED)2021-03-20 17:21:21 Test Item Value Reference Range Interpretation Comments POCT GLU (test code = 6140397310) 108 mg/dL 70-110 Lab Interpretation (test code = Normal 11670-2) [facility] [id number] 16:46:28 1.Biophysical score of 6 out of 8. breathing not observed. 2. Fundal placenta. No abruption. 3. anatomic survey limited due to maternal body habitus and advancedgestational age. RL: 1105 HISTORY: ?s/p fall, decreased movement, please visualize and evaluateplacenta COMPARISON:None TECHNIQUE: Obstetric ultrasound of the pelvis using transabdominal imaging performedfor bio-physical profile. Images were acquired for permanent storage in thepatient's medical record. FINDINGS: Single living intrauterine in the cephalic position. ?Placenta isfundal. ?Heart beat is 138 beats/min. Biophysical profile: ?There is positive ?positive tone and positivefetal movement. ?The amniotic fluid index is 10.4. No breathing seen. No evidence of previa or abruption. Estimated gestational age 34 weeks 1 day. Anatomic survey limited due to advanced gestational age and body habitus. Estimated weight 2336 g. Biparietal diameter 33 weeks 6 days. Head circumference 34 weeks 4 days.Abdominal circumference 34 weeks 4 days. Femur length 33 weeks 1 day. [facility], [place] Results Inft User - 03/20/2021 11:47 AM CDTHISTORY: s/p fall, decreased movement, please visualize and evaluateplacenta COMPARISON:NoneTECHNIQUE:Obstetric ultrasound of the pelvis using transabdominal imaging performedfor bio-physical profile. Images were acquired for permanent storage in thepatient's medical record.FINDINGS:Single living intrauterine in the cephalic position. Placenta isfundal. Heart beat is 138 beats/min.Biophysicalprofile: There is positive positive tone and positivefetal movement. The amniotic fluid index is 10.4.No breathing seen.No evidence of previa or abruption.Estimated gestational age 34 weeks 1 day.Anatomic survey limited due to advanced gestational age and body habitus.Estimated weight 2336 g.Biparietal diameter 33 weeks 6 days. Head circumference 34 weeks 4 days.Abdominal circumference 34 weeks 4 days. Femur length 33 weeks 1 day.IMPRESSION1.Biophysical score of 6 out of 8. breathing not observed.2. Fundal placenta. No abruption.3. anatomic survey limited due to maternal body habitus and advancedgestational age.RL: 1105 [facility] 14 [id number] 16:46:28 1.Biophysical score of 6 out of 8. breathing not observed. 2. Fundal placenta. No abruption. 3. anatomic survey limited due to maternal body habitus and advancedgestational age. RL: 1105 HISTORY: ?s/p fall, decreased movement, please visualize and evaluateplacenta COMPARISON:None TECHNIQUE: Obstetric ultrasound of the pelvis using transabdominal imaging performedfor bio-physical profile. Images were acquired for permanent storage in thepatient's medical record. FINDINGS: Single living intrauterine in the cephalic position. ?Placenta isfundal. ?Heart beat is 138 beats/min. Biophysical profile: ?There is positive ?positive tone and positivefetal movement. ?The amniotic fluid index is 10.4. No breathing seen. No evidence of previa or abruption. Estimated gestational age 34 weeks 1 day. Anatomic survey limited due to advanced gestational age and body habitus. Estimated weight 2336 g. Biparietal diameter 33 weeks 6 days. Head circumference 34 weeks 4 days.Abdominal circumference 34 weeks 4 days. Femur length 33 weeks 1 day. [facility], [place], [place] Results Inft User - 03/20/2021 11:47 AM CDTHISTORY: s/p fall, decreased movement, please visualize and evaluateplacenta COMPARISON:NoneTECHNIQUE:Obstetric ultrasound of the pelvis using transabdominal imaging performedfor bio-physical profile. Images were acquired for permanent storage in thepatient's medical record.FINDINGS:Single living intrauterine in the cephalic position. Placenta isfundal. Heart beat is 138 beats/min.Biophysicalprofile: There is positive positive tone and positivefetal movement. The amniotic fluid index is 10.4.No breathing seen.No evidence of previa or abruption.Estimated gestational age 34 weeks 1 day.Anatomic survey limited due to advanced gestational age and body habitus.Estimated weight 2336 g.Biparietal diameter 33 weeks 6 days. Head circumference 34 weeks 4 days.Abdominal circumference 34 weeks 4 days. Femur length 33 weeks 1 day.IMPRESSION1.Biophysical score of 6 out of 8. breathing not observed.2. Fundal placenta. No abruption.3. anatomic survey limited due to maternal body habitus and advancedgestational age.RL: 1105 [facility] NOW RAPID TESTING)2021-03-20 16:01:47 Test Item Value Reference Range Interpretation Comments SARS-CoV-2 Rapid ID NOW Not Detected Not Detected (test code = 55091-5) CLEMENTE (test code = CLEMENTE) ID NOW COVID-19 Assay is an isothermal nucleic acid amplification test intended for the qualitative detection of nucleic acid from SARS-CoV-2 viral RNA in nasopharyngeal (CELLARS SUPERVISOR) specimens. It is used under Emergency Use Authorization (EUA) by FDA. The limit of detection (LOD) of the assay is 125 Genome Equivalents/mL. A positive result is indicative of the presence of SARS-CoV-2 RNA. ?Clinical correlation with patient history and other diagnostic information is necessary to determine patient infection status. A negative (Not Detected) result does not preclude SARS-CoV-2 infection. In patients with clinical symptoms and other tests that are consistent with SARS-CoV-2 infection, negative results should be treated as presumptive negative and a new specimen should be tested with alternative PCR molecular test. Invalid: Please collect a new specimen for repeat patient testing if clinically indicated. Lab Interpretation Normal (test code = 16395-0) [facility] [id number] 20:40:21NST: cat 1, reactive/reassuring, no ctx, +accels, neg decls, moderate variability [facility]CIFIC [id number] 19:06:00 Test Item Value Reference Range Interpretation Comments POCT U SP GRAV (test code = . 1.005-1.025 3255) POCT PH U (test code = 3254) . 5-8 POCT U LEUK EST (test code = . Negative - Negative 3263) POCT U NIT (test code = 3262) . Negative - Negative POCT U PROT (test code = 3259) trace Negative - Negative POCT U GLU (test code = 3256) negative Negative - Negative POCT U KETONE (test code = 3258) . Negative - Negative POCT U UROBILI (test code = . 0.2-1 3260) POCT U BILI (test code = 3261) . Negative - Negative POCT U BLD (test code = 3257) . Negative - Negative POCT U COLOR (test code = 3266) POCT U APPEAR (test code = 3267) [facility] [id number] 03:31:09NST reactive and reassuring, no ctx notedUnCozard [facility] W SPECIFIC [id number] 18:09:00 Test Item Value Reference Range Interpretation Comments POCT U SP GRAV (test code = 3255) . 1.005-1.025 POCT PH U (test code = 3254) 6 mg/dl 5-8 POCT U LEUK EST (test code = Trace Negative - Negative 3263) POCT U NIT (test code = 3262) Neg Negative - Negative POCT U PROT (test code = 3259) Trace Negative - Negative POCT U GLU (test code = 3256) 1+ Negative - Negative POCT U KETONE (test code = 3258) None Negative - Negative POCT U UROBILI (test code = 3260) . 0.2-1 POCT U BILI (test code = 3261) . Negative - Negative POCT U BLD (test code = 3257) Trace Negative - Negative POCT U COLOR (test code = 3266) POCT U APPEAR (test code = 3267) General acute hospital URINALYSIS W SPECIFIC [id number] 18:09:00 Test Item Value Reference Range Interpretation Comments POCT U SP GRAV (test code = 3255) . 1.005-1.025 POCT PH U (test code = 3254) 6 mg/dl 5-8 POCT U LEUK EST (test code = Trace Negative - Negative 3263) POCT U NIT (test code = 3262) Neg Negative - Negative POCT U PROT (test code = 3259) Trace Negative - Negative POCT U GLU (test code = 3256) 1+ Negative - Negative POCT U KETONE (test code = 3258) None Negative - Negative POCT U UROBILI (test code = 3260) . 0.2-1 POCT U BILI (test code = 3261) . Negative - Negative POCT U BLD (test code = 3257) Trace Negative - Negative POCT U COLOR (test code = 3266) POCT U APPEAR (test code = 3267) General acute hospital URINALYSIS W SPECIFIC [id number] 18:19:00 Test Item Value Reference Range Interpretation Comments POCT U SP GRAV (test code = 1.005-1.025 3255) POCT PH U (test code = 3254) * 5-8 POCT U LEUK EST (test code = * Negative - Negative 3263) POCT U NIT (test code = 3262) * Negative - Negative POCT U PROT (test code = 3259) Trace Negative - Negative POCT U GLU (test code = 3256) Negative Negative - Negative POCT U KETONE (test code = 3258) * Negative - Negative POCT U UROBILI (test code = * 0.2-1 3260) POCT U BILI (test code = 3261) * Negative - Negative POCT U BLD (test code = 3257) * Negative - Negative POCT U COLOR (test code = 3266) * POCT U APPEAR (test code = 3267) * General acute hospital URINALYSIS W SPECIFIC [id number] 18:19:00 Test Item Value Reference Range Interpretation Comments POCT U SP GRAV (test code = 1.005-1.025 3255) POCT PH U (test code = 3254) * 5-8 POCT U LEUK EST (test code = * Negative - Negative 3263) POCT U NIT (test code = 3262) * Negative - Negative POCT U PROT (test code = 3259) Trace Negative - Negative POCT U GLU (test code = 3256) Negative Negative - Negative POCT U KETONE (test code = 3258) * Negative - Negative POCT U UROBILI (test code = * 0.2-1 3260) POCT U BILI (test code = 3261) * Negative - Negative POCT U BLD (test code = 3257) * Negative - Negative POCT U COLOR (test code = 3266) * POCT U APPEAR (test code = 3267) * [facility] [id number] 18:19:00 Test Item Value Reference Range Interpretation Comments POCT U SP GRAV (test code = 1.005-1.025 3255) POCT PH U (test code = 3254) * 5-8 POCT U LEUK EST (test code = * Negative - Negative 3263) POCT U NIT (test code = 3262) * Negative - Negative POCT U PROT (test code = 3259) Trace Negative - Negative POCT U GLU (test code = 3256) Negative Negative - Negative POCT U KETONE (test code = 3258) * Negative - Negative POCT U UROBILI (test code = * 0.2-1 3260) POCT U BILI (test code = 3261) * Negative - Negative POCT U BLD (test code = 3257) * Negative - Negative POCT U COLOR (test code = 3266) * POCT U APPEAR (test code = 3267) * [facility] GLUCOSE TOLERANCE [id number] 03:38:39 Test Item Value Reference Range Interpretation Comments GLUC 2 HR (test code = 8125569231) 130 mg/dL 70-120 H Lab Interpretation (test code = Abnormal 75312-3) [facility] GLUCOSE TOLERANCE [id number] 03:34:00 Test Item Value Reference Range Interpretation Comments GLUC 3 HR (test code = 0849724203) 113 mg/dL 70-110 H Lab Interpretation (test code = Abnormal 90387-7) [facility] TOLERANCE [id number] 03:32:39 Test Item Value Reference Range Interpretation Comments GLUC 1 HR (test code = 5093931340) 221 mg/dL 120-170 H Lab Interpretation (test code = Abnormal 66629-1) [facility] [id number] 03:22:57 Test Item Value Reference Range Interpretation Comments GLU FASTNG (test code = 0577180182) 124 mg/dL 70-110 H Lab Interpretation (test code = Abnormal 81996-5) [facility] with [id number] 03:22:17 Test Item Value Reference Range Interpretation Comments WBC (test code = See_Comment [Automated 6690-2) message] The sy stem which generated this result transmitted reference range : 4.30 - 11.10 10*3/?L. The reference range was not used to interpret this result as normal/abnormal . RBC (test code = See_Comment [Automated 789-8) message] The sy stem which generated this result transmitted reference range : 3.93 - 5.25 10*6/?L. The reference range was not used to interpret this result as normal/abnormal . HGB (test code = 10.9 g/dL 11.6-15.0 L 718-7) HCT (test code = 34.5 % 35.7-45.2 L 4544-3) MCV (test code = 83.3 fL 80.6-95.5 787-2) MCH (test code = 26.3 pg 25.9-32.8 785-6) MCHC (test code = 31.6 g/dL 31.6-35.1 786-4) RDW-SD (test code = 45.1 fL 39.0-49.9 86303-1) RDW-CV (test code = 15.1 % 12.0-15.5 788-0) PLT (test code = See_Comment [Automated 777-3) message] The sy stem which generated this result transmitted reference range : 166 - 358 10*3/ ?L. The reference r danny was not used to interpret this result as normal/abnormal . MPV (test code = 13.2 fL 9.5-12.9 H 11470-5) NRBC/100 WBC (test See_Comment [Automat ed code = [id number]) message] The system which generated this result transmitted reference range : 0.0 - 10.0 /100 WBCs. The refer ence range was not u sed to interpret th is result as normal/abnormal . NRBC x10^3 (test code <0.01 See_Comment [Auto mated = [id number]) message] The s ystem which generated this result transmitted reference range : 10*3/?L. The reference range was not used to interpret this result as normal/abnormal . GRAN MAT (NEUT) % 68.1 % (test code = 770-8) IMM GRAN % (test code 0.90 % = 7289846270) LYMPH % (test code = 24.7 % 736-9) MONO % (test code = 4.5 % 5905-5) EOS % (test code = 1.6 % 713-8) BASO % (test code = 0.2 % 706-2) GRAN MAT x10^3(ANC) 6.31 10*3/uL 1.88-7.09 (test code = 9296900626) IMM GRAN x10^3 (test 0.08 10*3/uL 0.00-0.06 H code = 3604343689) LYMPH x10^3 (test code 2.29 10*3/uL 1.32-3.29 = 731-0) MONO x10^3 (test code 0.42 10*3/uL 0.33-0.92 = 742-7) EOS x10^3 (test code = 0.15 10*3/uL 0.03-0.39 711-2) BASO x10^3 (test code <0.03 0.01-0.07 = 704-7) Lab Interpretation Abnormal (test code = 35737-9) General acute hospital URINALYSIS W SPECIFIC [id number] 13:23:00 Test Item Value Reference Range Interpretation Comments POCT U SP GRAV (test code = . 1.005-1.025 3255) POCT PH U (test code = 3254) . 5-8 POCT U LEUK EST (test code = . Negative - Negative 3263) POCT U NIT (test code = 3262) . Negative - Negative POCT U PROT (test code = 3259) . Negative - Negative POCT U GLU (test code = 3256) trace Negative - Negative POCT U KETONE (test code = 3258) neg Negative - Negative POCT U UROBILI (test code = . 0.2-1 3260) POCT U BILI (test code = 3261) . Negative - Negative POCT U BLD (test code = 3257) . Negative - Negative POCT U COLOR (test code = 3266) POCT U APPEAR (test code = 3267) Lab Interpretation (test code = Abnormal 73588-2) General acute hospital URINALYSIS W SPECIFIC [id number] 21:13:00 Test Item Value Reference Range Interpretation Comments POCT U SP GRAV (test code = 3255) . 1.005-1.025 POCT PH U (test code = 3254) . 5-8 POCT U LEUK EST (test code = 3263) . Negative - Negative POCT U NIT (test code = 3262) . Negative - Negative POCT U PROT (test code = 3259) . Negative - Negative POCT U GLU (test code = 3256) . Negative - Negative POCT U KETONE (test code = 3258) . Negative - Negative POCT U UROBILI (test code = 3260) . 0.2-1 POCT U BILI (test code = 3261) . Negative - Negative POCT U BLD (test code = 3257) . Negative - Negative POCT U COLOR (test code = 3266) POCT U APPEAR (test code = 3267) General acute hospital URINALYSIS W SPECIFIC [id number] 19:51:00 Test Item Value Reference Range Interpretation Comments POCT U SP GRAV (test code = 3255) . 1.005-1.025 POCT PH U (test code = 3254) . 5-8 POCT U LEUK EST (test code = 3263) . Negative - Negative POCT U NIT (test code = 3262) . Negative - Negative POCT U PROT (test code = 3259) Trace Negative - Negative POCT U GLU (test code = 3256) Trace Negative - Negative POCT U KETONE (test code = 3258) . Negative - Negative POCT U UROBILI (test code = 3260) .. 0.2-1 POCT U BILI (test code = 3261) . Negative - Negative POCT U BLD (test code = 3257) . Negative - Negative POCT U COLOR (test code = 3266) . POCT U APPEAR (test code = 3267) General acute hospital URINALYSIS W SPECIFIC [id number] 19:13:00 Test Item Value Reference Range Interpretation Comments POCT U SP GRAV (test code = 3255) . 1.005-1.025 POCT PH U (test code = 3254) . 5-8 POCT U LEUK EST (test code = 3263) . Negative - Negative POCT U NIT (test code = 3262) . Negative - Negative POCT U PROT (test code = 3259) trace Negative - Negative POCT U GLU (test code = 3256) neg Negative - Negative POCT U KETONE (test code = 3258) . Negative - Negative POCT U UROBILI (test code = 3260) . 0.2-1 POCT U BILI (test code = 3261) . Negative - Negative POCT U BLD (test code = 3257) . Negative - Negative POCT U COLOR (test code = 3266) POCT U APPEAR (test code = 3267) [facility]OTE[facility]-MATERNAL [id number] 20:55:00 Test Item Value Reference Range Interpretation Comments AFP-MS (test code = 11.6 ng/mL 9520350131) AFP-MS Interpretation NTD SCREENING (test code = 4493303945) RESULTS: Gestation Age: ?Weeks 15 days 3 based on __ LMP __ PE _x_ US.Maternal Serum AFP value in ng/mL is 11.6.The corrected AFP MOM is 0.86.NORMAL RANGE is less than 2.5 MOM in NTD screening. ? The NTD screen result is:_x_ Negative__ Positive with a risk of 1 in [facility]PO[facility]IN[facility] W SPECIFIC [id number] 19:26:00 Test Item Value Reference Range Interpretation Comments POCT U SP GRAV (test code = 3255) . 1.005-1.025 POCT PH U (test code = 3254) . 5-8 POCT U LEUK EST (test code = 3263) . Negative - Negative POCT U NIT (test code = 3262) . Negative - Negative POCT U PROT (test code = 3259) Trace Negative - Negative POCT U GLU (test code = 3256) Neg Negative - Negative POCT U KETONE (test code = 3258) . Negative - Negative POCT U UROBILI (test code = 3260) . 0.2-1 POCT U BILI (test code = 3261) . Negative - Negative POCT U BLD (test code = 3257) . Negative - Negative POCT U COLOR (test code = 3266) POCT U APPEAR (test code = 3267) [id number] 11:22:06 1. ?Single live intrauterine in keeping with 16 weeks and 4 daysas described. 2. ?Amniotic fluid visually appears at the lower limits of normal. RL: 2109AFC: [id number] EXAM: PELVIC ULTRASOUND ORDERING PROVIDER: FAN SALAZAR HISTORY: abdominal pain possible demise COMPARISON: ?07/30/2019 TECHNIQUE: Limited obstetrical ultrasound u tilizing transabdominal approachperformed. Please note that the study was ordered as a transvaginalexamination, however transabdominal imaging was performed utilizing a C5-1transducer. FINDINGS: Technically difficult study due to body habitus. There is asingle live intrauterine with a heart rate ranging nbcp973-087 bpm. The placenta is posterior. Cervix is not well evaluated.Amniotic fluid visually appears at the lower limits of normal. Biparietal diameter 3.1 cm in keeping with 15 weeks and 6 daysHead circumference 12.4 cm in keeping with 16 weeks and 2 daysAbdominal bsshbmixunqkp05.6 cm in keeping with 16 weeks and 4 daysFemur length 2.1 cm in keeping with 16 weeks and 3 days Composite gestational age by ultrasound 16 weeks and 4 days, with an MARIA of07/20/2020. Estimated weight 6 ounces. The maternal ovaries were notvisualized and may be obscured by bowel gas or graft uterus. [facility], Radiant Results Inft User - 11/13/2020 5:23 AM CSTEXAM: PELVIC ULTRASOUNDORDERING PROVIDER: FAN SALAZARHISTORY: abdominal pain possible demise COMPARISON: 07/30/2019TECHNIQUE: Limited obstetrical ultrasound utilizing transabdominal approachperformed. Please note that the study was ordered as a transvaginalexamination, however transabdominal imaging was performed utilizing a C5-1transducer.FINDINGS: Technically difficult study due to body habitus. There is asingle live intrauterine with a heart rate ranging fuec753-468 bpm. The placenta is posterior. Cervix is not well evaluated.Amniotic fluid visually appears at the lower limits of normal. Biparietal diameter 3.1 cm in keeping with 15 weeks and 6 daysHead circumference 12.4 cm in keeping with 16 weeks and 2 daysAbdominal circumference 10.6 cm in keeping with 16 weeks and 4 daysFemur length 2.1 cm in keeping with 16 weeks and 3 daysComposite gestational age by ultrasound 16 weeks and 4 days, with an MARIA of07/20/2020. Estimated weight 6 ounces. The maternal ovaries were notvisualized and may be obscuredby bowel gas or graft uterus.IMPRESSION1. Single live intrauterine in keeping with 16 weeks and 4 daysas described.2. Amniotic fluid visually appears at the lower limits of normal.RL: 2109AFC: [id number] signed by Javy Sood DO at 11/13/2020 5:22 AM [facility] HospitalaPTT2021-01-07 07:15:00 Test Item Value Reference Range Interpretation Comments APTT Patient (test See_Comment [Automat ed code = 3173-2) message] The system which generated this result transmitted reference range : 23 - 38 Seconds . The reference range was not used to interpr et this result as normal/abnormal . CLEMENTE (test code = CLEMENTE) The [facility] patient population mean normal value for aPTT is 30 seconds. Lab Interpretation Normal (test code = 14857-0) [facility] HospitalProthrombin Time (PT) / [id number] 07:12:00 Test Item Value Reference Range Interpretation Comments PROTIME PATIENT (test See_Comment [Auto mated message] code = 5964-2) The system wh ich generated this result transmitted ref erence range: 12.0 - 1 4.7 Seconds. The re ference range was not u sed to interpret this result as normal/abnor mal. INR (test code = 6301-6) Nor mal INR <1.1; Warfarin Therap eutic range 2.0 to 3. 0 or 2.5 to 3.5, dep ending upon the indica tions. Lab Interpretation (test Normal code = 79711-9) [facility] HospitalBasi Metabolic Panel (NA, K, CL, CO2, GLUCOSE, BUN, CREATININE, CA)2020-11-13 07:11:00 Test Item Value Reference Range Interpretation Comments NA (test code = 132 mmol/L 135-145 L 8643660770) K (test code = 3.6 mmol/L 3.5-5 6575990761) CL (test code = 101 mmol/L 98-108 8248696740) CO2 TOTAL (test code = 23 mmol/L 23-31 9939250239) AGAP (test code = 2-16 2668631481) BUN (test code = 6 mg/dL 7-23 L 8000214844) GLUCOSE (test code = 128 mg/dL 70-110 H 3558137763) CREATININE (test code = 0.45 mg/dL 0.5-1.04 L 8145244299) CALCIUM (test code = 9.0 mg/dL 8.6-10.6 8428786152) eGFR Calculation mL/min/1.73m2 (Non-) (test code = 9147190490) eGFR Calculation mL/min/1.73m2 () (test code = 7757115221) CLEMENTE (test code = CLEMENTE) Association of Glomerular Filtration Rate (GFR) and Staging of Kidney Disease* + --+ --+ ------+| GFR (mL/min/1.73 m2) ?| With Kidney Damage ?| ?Without Kidney Damage+ --------+ --------+ +| ?>90 ?| ?Stage one ?| ? Normal ?+ ---+ ---+ -------+| ?60-89 ?| ?Stage two ?| ? Decreased GFR ? + --+ --+ ------+| ?30-59 ?| ?Stage three ?| ? Stage three ? + --+ --+ ------+| ?15-29 ?| ?Stage four ? | ? Stage four ?+ ---+ ---+ -------+| ?<15 (or dialysis) ? ?| ?Stage five ? | ? Stage five ?+ ---+ ---+ -------+ *Each stage assumes the associated GFR level has been in effect for at least three months. ?Stages 1 to 5, with or without kidney disease, indicate chronic kidney disease. Notes: Determination of stages one and two (with eGFR >59mL/min/1.73 m2) requires estimation of kidney damage for at least three months as defined by structural or functional abnormalities of the kidney, manifested by either:Pathological abnormalities or Markers of kidney damage (including abnormalities in the composition of the blood or urine or abnormalities in imaging tests). Lab Interpretation Abnormal (test code = 85435-3) [facility] HospitalHepatic Function Panel (ALB, T.PRO, BILI T, BU/BC, ALT, AST, ALK PHOS)2020-11-13 07:11:00 Test Item Value Reference Range Interpretation Comments TOTAL BILI (test code = 8560951104) 1.0 mg/dL 0.1-1.1 BILI UNCON (test code = 5437073588) 0.8 mg/dL 0.1-1.1 BILI CONJ (test code = 5396342510) 0.0 mg/dL 0-0.3 T PROTEIN (test code = 0126563829) 7.3 g/dL 6.3-8.2 ALBUMIN (test code = 1738938741) 3.9 g/dL 3.5-5 ALK PHOS (test code = 1657820441) 80 U/L 34-122 ALTv (test code = 1742-6) 57 U/L 5-35 H AST(SGOT) (test code = 0171671932) 77 U/L 13-40 H Lab Interpretation (test code = Abnormal 59822-5) [facility] HospitalLipase [id number] 07:11:00 Test Item Value Reference Range Interpretation Comments LIPASE (test code = 0555870108) 31 U/L 0-220 Lab Interpretation (test code = Normal 86432-2) [facility] HospitalURINALYSIS2021-01-07 07:06:00 Test Item Value Reference Range Interpretation Comments APPEARANCE (test code = Cloudy Clear A 0530415130) COLOR (test code = Usha Yellow A 8677663868) PH (test code = 4.8-8.0 2803982050) SP GRAVITY (test code = 1.003-1.030 2646338853) GLU U QUAL (test code = Normal Normal 6740560048) BLOOD (test code = Negative Negative 2503656980) KETONES (test code = Negative Negative 7789130834) PROTEIN (test code = 500 mg/dL Negative A 2887-8) UROBILIN (test code = 2.0 mg/dL Normal A 1276016333) BILIRUBIN (test code = Negative Negative 3451053026) NITRITE (test code = Negative Negative 1780536912) LEUK JANIE (test code = Negative Negative 4565909279) RBC/HPF (test code = See_Comment [Autom ated message] 3712911665) The system [employer] generated this result transmit nancy reference range : 0 - 3 HPF. The refe rence range was not u sed to interpret th is result as normal/abnormal . WBC/HPF (test code = See_Comment [Autom ated message] 8784523271) The system [employer] generated this result transmit nancy reference range : 0 - 5 HPF. The refe rence range was not u sed to interpret th is result as normal/abnormal . BACTERIA (test code = Moderate Negative A 2355968351) MUCOUS (test code = Moderate Negative LPF A 4733018104) SQ EPITH (test code = HPF 5424153824) TRANS EPI (test code = <1 See_Comment [Aut omated message] 8327079313) The system [employer] generated this result transmit nancy reference range : <=1 HPF. The refere nce range was not u sed to interpret th is result as normal/abnormal . Lab Interpretation (test Abnormal code = 50152-1) [facility] with [id number] 06:57:00 Test Item Value Reference Range Interpretation Comments WBC (test code = See_Comment H [Automated 6690-2) message] The sy stem which generated this result transmitted reference range : 4.30 - 11.10 10*3/?L. The reference range was not used to interpret this result as normal/abnormal . RBC (test code = See_Comment [Automated 789-8) message] The sy stem which generated this result transmitted reference range : 3.93 - 5.25 10*6/?L. The reference range was not used to interpret this result as normal/abnormal . HGB (test code = 11.8 g/dL 11.6-15 718-7) HCT (test code = 36.3 % 35.7-45.2 4544-3) MCV (test code = 79.8 fL 80.6-95.5 L 787-2) MCH (test code = 25.9 pg 25.9-32.8 785-6) MCHC (test code = 32.5 g/dL 31.6-35.1 786-4) RDW-SD (test code = 43.6 fL 39-49.9 92989-8) RDW-CV (test code = 15.1 % 12-15.5 788-0) PLT (test code = See_Comment [Automated 777-3) message] The sy stem which generated this result transmitted reference range : 166 - 358 10*3/ ?L. The reference r danny was not used to interpret this result as normal/abnormal . MPV (test code = 10.9 fL 9.5-12.9 04349-0) NRBC/100 WBC (test See_Comment [Automat ed code = 5153767986) message] The system which generated this result transmitted reference range : 0.0 - 10.0 /100 WBCs. The refer ence range was not u sed to interpret th is result as normal/abnormal . NRBC x10^3 (test code <0.01 See_Comment [Auto mated = 5848491387) message] The s ystem which generated this result transmitted reference range : 10*3/?L. The reference range was not used to interpret this result as normal/abnormal . GRAN MAT (NEUT) % 86.7 % (test code = 770-8) IMM GRAN % (test code 0.60 % = 1482683252) LYMPH % (test code = 9.2 % 736-9) MONO % (test code = 2.2 % 5905-5) EOS % (test code = 1.1 % 713-8) BASO % (test code = 0.2 % 706-2) GRAN MAT x10^3(ANC) 9.67 10*3/uL 1.88-7.09 H (test code = 9789495585) IMM GRAN x10^3 (test 0.07 10*3/uL 0-0.06 H code = 0651974200) LYMPH x10^3 (test code 1.03 10*3/uL 1.32-3.29 L = 731-0) MONO x10^3 (test code 0.24 10*3/uL 0.33-0.92 L = 742-7) EOS x10^3 (test code = 0.12 10*3/uL 0.03-0.39 711-2) BASO x10^3 (test code <0.03 0.01-0.07 = 704-7) Lab Interpretation Abnormal (test code = 88550-9) [facility] HospitalGALV ONLY - SYPHILIS [id number] 17:48:00 Test Item Value Reference Range Interpretation Comments Syphilis IgG/IgM (test Non-reactive Non-reactive code = 67357-1) CLEMENTE (test code = CLEMENTE) Non-reactive - No serologic evidence of T. pallidum infection. Cannot exclude incubating or early syphilis. Submit a second specimen in 2-4 weeks if syphilis is clinically suspected. Equivocal - Further testing to follow. Reactive - Further testing to follow. Lab Interpretation (test Normal code = 19504-2) [facility] HospitalHEPATITIS B SURFACE [id number] 13:04:00 Test Item Value Reference Range Interpretation Comments HBsAg Semi-Quantitative (test code = Negative Negative 5195-3) [facility] HospitalPRENATAL WORKUP, BLOOD [id number] 10:26:54 Test Item Value Reference Range Interpretation Comments ABO & RH (test code O POSITIVE Performe d at [facility] = 20) Laboratory Serv [facility] Blood Bank3 [facility] s [address]Zetn Free: [phone] A No. [id number] IAT (test code = Negative Performed a t [facility] 1185) Laboratory [facility] Blood Bank3 [facility] s [address]Klml Free: [phone] A No. [id number] [facility] HospitalSARS-COV-2 [id number] 08:02:00 Test Item Value Reference Range Interpretation Comments CoV-2 IgG (test code Negative Negative Negativ e result = 54834-1) does not rule o nd acute SARS-CoV- 2 infection. Clinical correlation as well as molecul ar diagnostic test are recommended to rule out acu te infection if clinically indicated. CLEMENTE (test code = CLEMENTE) This test has been approved by FDA for emergency use. Lab Interpretation Normal (test code = 74268-7) [facility] HospitalHIV 1/2 AG-AB WITH [id number] 07:02:00 Test Item Value Reference Range Interpretation Comments HIV Negative Negative Semi-quantitative (test code = 12931-9) CLEMENTE (test code = Non-reactive for HIV-1 CLEMENTE) antigen and HIV-1/HIV-2 antibodies. ?No laboratory evidence of HIV infection. ?Repeat in 2-4 weeks if acute HIV infection is suspected. [facility] HospitalGLUCOSE 1 HOUR POST [id number] 05:50:00 Test Item Value Reference Range Interpretation Comments GLUC 1 HR (test code = 8715747693) 146 mg/dL 120-170 Lab Interpretation (test code = Normal 16669-6) [facility] HospitalCBC WITH [id number] 05:13:00 Test Item Value Reference Range Interpretation Comments WBC (test code = See_Comment [Automated 2590-2) message] The sy stem which generated this result transmitted reference range : 4.30 - 11.10 10*3/?L. The reference range was not used to interpret this result as normal/abnormal . RBC (test code = See_Comment [Automated 789-8) message] The sy stem which generated this result transmitted reference range : 3.93 - 5.25 10*6/?L. The reference range was not used to interpret this result as normal/abnormal . HGB (test code = 11.8 g/dL 11.6-15 718-7) HCT (test code = 35.9 % 35.7-45.2 4544-3) MCV (test code = 79.8 fL 80.6-95.5 L 787-2) MCH (test code = 26.2 pg 25.9-32.8 785-6) MCHC (test code = 32.9 g/dL 31.6-35.1 786-4) RDW-SD (test code = 44.2 fL 39-49.9 61643-5) RDW-CV (test code = 15.2 % 12-15.5 788-0) PLT (test code = See_Comment L [Automated 777-3) message] The sy stem which generated this result transmitted reference range : 166 - 358 10*3/ ?L. The reference r danny was not used to interpret this result as normal/abnormal . MPV (test code = 12.4 fL 9.5-12.9 72152-1) NRBC/100 WBC (test See_Comment [Automat ed code = 6106073666) message] The system which generated this result transmitted reference range : 0.0 - 10.0 /100 WBCs. The refer ence range was not u sed to interpret th is result as normal/abnormal . NRBC x10^3 (test code <0.01 See_Comment [Auto mated = 5255438775) message] The s ystem which generated this result transmitted reference range : 10*3/?L. The reference range was not used to interpret this result as normal/abnormal . GRAN MAT (NEUT) % 64.3 % (test code = 770-8) IMM GRAN % (test code 0.60 % = 1184307850) LYMPH % (test code = 27.9 % 736-9) MONO % (test code = 3.8 % 5905-5) EOS % (test code = 3.1 % 713-8) BASO % (test code = 0.3 % 706-2) GRAN MAT x10^3(ANC) 5.75 10*3/uL 1.88-7.09 (test code = 7374994501) IMM GRAN x10^3 (test 0.05 10*3/uL 0-0.06 code = 8861464853) LYMPH x10^3 (test code 2.50 10*3/uL 1.32-3.29 = 731-0) MONO x10^3 (test code 0.34 10*3/uL 0.33-0.92 = 742-7) EOS x10^3 (test code = 0.28 10*3/uL 0.03-0.39 711-2) BASO x10^3 (test code 0.03 10*3/uL 0.01-0.07 = 704-7) Lab Interpretation Abnormal (test code = 23821-8) General acute hospital URINALYSIS W/O SPECIFIC [id number] 15:59:00 Test Item Value Reference Range Interpretation Comments POCT PH U (test code = 3254) 5 mg/dl 5-8 POCT U LEUK EST (test code = 1+ Negative - Negative 3263) POCT U NIT (test code = 3262) Neg Negative - Negative POCT U PROT (test code = 3259) Trace Negative - Negative POCT U GLU (test code = 3256) Neg Negative - Negative POCT U KETONE (test code = 3258) None Negative - Negative POCT U BLD (test code = 3257) Trace Negative - Negative General acute hospital URINALYSIS W/O SPECIFIC [id number] 15:59:00 Test Item Value Reference Range Interpretation Comments POCT PH U (test code = 3254) 5 mg/dl 5-8 POCT U LEUK EST (test code = 1+ Negative - Negative 3263) POCT U NIT (test code = 3262) Neg Negative - Negative POCT U PROT (test code = 3259) Trace Negative - Negative POCT U GLU (test code = 3256) Neg Negative - Negative POCT U KETONE (test code = 3258) None Negative - Negative POCT U BLD (test code = 3257) Trace Negative - Negative General acute hospital URINALYSIS W/O SPECIFIC [id number] 15:59:00 Test Item Value Reference Range Interpretation Comments POCT PH U (test code = 3254) 5 mg/dl 5-8 POCT U LEUK EST (test code = 1+ Negative - Negative 3263) POCT U NIT (test code = 3262) Neg Negative - Negative POCT U PROT (test code = 3259) Trace Negative - Negative POCT U GLU (test code = 3256) Neg Negative - Negative POCT U KETONE (test code = 3258) None Negative - Negative POCT U BLD (test code = 3257) Trace Negative - Negative General acute hospital URINALYSIS W/O SPECIFIC [id number] 15:59:00 Test Item Value Reference Range Interpretation Comments POCT PH U (test code = 3254) 5 mg/dl 5-8 POCT U LEUK EST (test code = 1+ Negative - Negative 3263) POCT U NIT (test code = 3262) Neg Negative - Negative POCT U PROT (test code = 3259) Trace Negative - Negative POCT U GLU (test code = 3256) Neg Negative - Negative POCT U KETONE (test code = 3258) None Negative - Negative POCT U BLD (test code = 3257) Trace Negative - Negative General acute hospital [id number] 15:57:00 Test Item Value Reference Range Interpretation Comments POCT PREG (test code = 1605) Positive On board controls acceptable with C Yes Line (test code = 3574) POCT PREG LOT # (test code = 3575) POCT PREG TEST DATE (test code = 3576) [facility] HospitalPOOR [id number] 15:57:00 Test Item Value Reference Range Interpretation Comments POCT PREG (test code = 1605) Positive On board controls acceptable with C Yes Line (test code = 3574) POCT PREG LOT # (test code = 3575) POCT PREG TEST DATE (test code = 3576) General acute hospital [id number] 15:57:00 Test Item Value Reference Range Interpretation Comments POCT PREG (test code = 1605) Positive On board controls acceptable with C Yes Line (test code = 3574) POCT PREG LOT # (test code = 3575) POCT PREG TEST DATE (test code = 3576) General acute hospital [id number] 15:57:00 Test Item Value Reference Range Interpretation Comments POCT PREG (test code = 1605) Positive On board controls acceptable with C Yes Line (test code = 3574) POCT PREG LOT # (test code = 3575) POCT PREG TEST DATE (test code = 3576) General acute hospital [id number] 18:48:00 Test Item Value Reference Range Interpretation Comments POCT PREG (test code = 1605) Positive On board controls acceptable with C Yes Line (test code = 3574) POCT PREG LOT # (test code = 3575) POCT PREG TEST DATE (test code = 3576) General acute hospital [id number] 18:48:00 Test Item Value Reference Range Interpretation Comments POCT PREG (test code = 1605) Positive On board controls acceptable with C Yes Line (test code = 3574) POCT PREG LOT # (test code = 3575) POCT PREG TEST DATE (test code = 3576) [facility] HospitalUS [id number] 05:35:45 1.?No evidence of intrauterine gestation or ectopic at thistime.2. The endometrial stipe is thickened but measures at the upper limits ofnormal in a young premenopausal patient.3. 3.0 cm right ovarian cyst. No evidence of increased vascularity orinternal components to suggest ectopic at this time.4. No evidence of ovarian torsion.5. Multiple nabothian cysts. RL: [id number] PHYSICIAN: KULWINDER PAYNE III CLINICAL HISTORY: abd pain in with vaginal bleeding, ectopicpregnancy TECHNIQUE: Transvaginal?pelvic ultrasound, including spectral Dopplerultrasound. COMPARISON: none FINDINGS: The uterus measures 10.1 x 5.0 x 5.7 cm.?The endometrial stripeis normal, measuring 15 mm. Multiple nabothian cysts present. No visualizedgestational sac or pole is visualized. The left ovary measures 2.5 x2.1 x 2.0 cm.?The right ovary measures 5.3 x 3.5 x 2.8 cm.?Right ovariancyst measuring 2.2 x 3.0 x 2.4 cm. This cystic structure demonstrates noincreased vascularity or internal components. No fluid collectionsidentified. Dedicated spectral analysis demonstrates appropriate color Doppler flowwith arterial and venous waveforms visualized. No evidence of ovariantorsion. [facility], [place], Radiant Results Inft User - 06/30/2019 12:37 AM CDTORDERING PHYSICIAN: KULWINDER PAYNE IIICLINICAL HISTORY: abd pain in with vaginal bleeding, ectopicpregnancy TECHNIQUE: Transvaginal pelvic ultrasound, including spectral Dopplerultrasound.COMPARISON: noneFINDINGS: The uterus measures 10.1 x 5.0 x 5.7 cm. The endometrial stripeis normal, measuring 15 mm. Multiple nabothian cysts present. No visualizedgestational sac or pole is visualized. The left ovary measures 2.5 x2.1x 2.0 cm. The right ovary measures 5.3 x 3.5 x 2.8 cm. Right ovariancyst measuring 2.2 x 3.0 x 2.4cm. This cystic structure demonstrates noincreased vascularity or internal components. No fluid colle ctionsidentified.Dedicated spectral analysis demonstrates appropriate color Doppler flowwith arterial and venous waveforms visualized. No evidence of ovariantorsion.IMPRESSION1. No evidence of intrauterine gestation or ectopic at thistime.2. The endometrial stipe is thickened but measures at the upper limits ofnormal in a young premenopausal patient.3. 3.0 cm right ovarian cyst. No evidence of increased vascularity orinternal components to suggest ectopic at this time.4. No evidence of ovarian torsion.5. Multiple nabothian cysts.RL: [id number] [facility] CampusType and Screen - ONCE [id number] 05:15:55 Test Item Value Reference Range Interpretation Comments ABO & RH (test code O Positive Performe d at [facility] = 20) Laboratory Serv [facility] Blood Bank[address] [place], [place] [address]Toll Free: [phone] A No. [id number] IAT (test code = Negative Performed a t [facility] 1185) Laboratory Serv [facility] Blood Bank[address] [place], [place] [address]Toll Free: [phone] A No. [id number] [facility] HospitalTOTAL BETA HCG [id number] 05:08:00 Test Item Value Reference Range Interpretation Comments BETA HCG (test See_Comment [Automated m essage] code = The system [employer] [id number]) generated this result transmit nancy reference range : Non- fe male and male patien ts: <5 mIU/mL. The reference range was not used to interpret this result as normal/abnormal . CLEMENTE (test code Gestational = CLEMENTE) Age?Range (mIU/mL)1-10?Weeks?[id number] Weeks?[id number] -22 Weeks?7480-76010811- 40 Weeks?7961-518780Sli tin has been reported to cause a negative bias, interpret results relative to patient's use of biotin. [facility] HospitalCOMP. METABOLIC PANEL (11032)2019-06-30 04:48:00 Test Item Value Reference Range Interpretation Comments NA (test code = 141 mmol/L 135-145 6737391580) K (test code = 3.7 mmol/L 3.5-5 0243374407) CL (test code = 106 mmol/L 98-108 7085707193) CO2 TOTAL (test code = 26 mmol/L 23-31 5709308468) AGAP (test code = 2-16 5967789554) BUN (test code = 14 mg/dL 7-23 7709254222) GLUCOSE (test code = 108 mg/dL 70-110 2749079508) CREATININE (test code = 0.69 mg/dL 0.5-1.04 2216397478) TOTAL BILI (test code = 0.5 mg/dL 0.1-1.6 1117493668) CALCIUM (test code = 8.7 mg/dL 8.6-10.6 5281674961) T PROTEIN (test code = 8.0 g/dL 6.3-8.2 3518183832) ALBUMIN (test code = 4.1 g/dL 3.5-5 9171171109) ALK PHOS (test code = 104 U/L 34-122 5279769513) ALT(SGPT) (test code = 50 U/L 9-51 1462064739) AST(SGOT) (test code = 45 U/L 13-40 H 7219878146) eGFR Calculation mL/min/1.73m2 (Non-) (test code = 2722743387) eGFR Calculation mL/min/1.73m2 () (test code = 1595696793) CLEMENTE (test code = CLEMENTE) Association of Glomerular Filtration Rate (GFR) and Staging of Kidney Disease*+ + + +| GFR (mL/min/1.73 m2)?| With Kidney Damage?|?Without Kidney Damage+ --------+ --------+ +|?>90?|?S tage one??|? Normal?+ ---------+ ---------+ +|?60-89? |?Stage two?|? Decreased GFR? + --+ --+ ------+|?30-59?|?Stage three?|? Stage three? + --+ --+ ------+|?15-29?|?Stage four? |? Stage four?+ -------+ -------+ +|?<15 (or dialysis)?|?Stage five? |? Stage five?+ -------+ -------+ +*Each stage assumes the associated GFR level has been in effect for at least three months.?Stages 1 to 5, with or without kidney disease, indicate chronic kidney disease.Notes: Determination of stages one and two (with eGFR >59mL/min/1.73 m2) requires estimation of kidney damage for at least three months as defined by structural or functional abnormalities of the kidney, manifested by either:Pathological abnormalities or Markers of kidney damage (including abnormalities in the composition of the blood or urine or abnormalities in imaging tests). Lab Interpretation Abnormal (test code = 56213-6) [facility] Test Item Value Reference Range Interpretation Comments APPEARANCE (test code Slightly Cloudy Clear A = 8775648800) COLOR (test code = Yellow Yellow 9548281017) PH (test code = 4.8-8.0 9307212907) SP GRAVITY (test code >=1.030 1.003-1.030 = 6414943050) GLU U QUAL (test code Negative Negative = 9586175585) BLOOD (test code = Large Negative A 9930168496) KETONES (test code = Negative Negative 5003262835) PROTEIN (test code = Negative Negative 2887-8) UROBILIN (test code = 0.2 mg/dL See_Comment [Auto mated 8477487563) message] The system which generated this result transmit nancy reference range : 0-1.0 mg/dL. Th e reference range was not used to interpret this result as normal/abnormal . BILIRUBIN (test code Negative Negative = 1320511068) NITRITE (test code = Negative Negative 4832048133) LEUK JANIE (test code Small Negative A = 1900772613) RBC/HPF (test code = >182 See_Comment H [Autom ated 5568245340) message] The system which generated this result transmit nancy reference range : 0 - 3 HPF. The reference range was not used to interpret this result as normal/abnormal . WBC/HPF (test code = See_Comment H [Autom ated 6041076717) message] The system which generated this result transmit nancy reference range : 0 - 5 HPF. The reference range was not used to interpret this result as normal/abnormal . BACTERIA (test code = Moderate Negative A 1885203890) SQ EPITH (test code = HPF 2778344234) Lab Interpretation Abnormal (test code = 62857-0) [facility] [id number] 04:38:00 Test Item Value Reference Range Interpretation Comments WBC (test code = See_Comment [Automated 1090-2) message] The sy stem which generated this result transmitted reference range : 4.30 - 11.10 10*3/?L. The reference range was not used to interpret this result as normal/abnormal . RBC (test code = See_Comment [Automated 789-8) message] The sy stem which generated this result transmitted reference range : 3.93 - 5.25 10*6/?L. The reference range was not used to interpret this result as normal/abnormal . HGB (test code = 12.0 g/dL 11.6-15 718-7) HCT (test code = 36.8 % 35.7-45.2 4544-3) MCV (test code = 75.9 fL 80.6-95.5 L 787-2) MCH (test code = 24.7 pg 25.9-32.8 L 785-6) MCHC (test code = 32.6 g/dL 31.6-35.1 786-4) RDW-SD (test code = 43.0 fL 39-49.9 24729-7) RDW-CV (test code = 15.9 % 12-15.5 H 788-0) PLT (test code = See_Comment [Automated 777-3) message] The sy stem which generated this result transmitted reference range : 166 - 358 10*3/ ?L. The reference r danny was not used to interpret this result as normal/abnormal . MPV (test code = 11.1 fL 9.5-12.9 72847-9) NRBC/100 WBC (test See_Comment [Automat ed code = 4736778060) message] The system which generated this result transmitted reference range : 0.0 - 10.0 /100 WBCs. The refer ence range was not u sed to interpret th is result as normal/abnormal . NRBC x10^3 (test code <0.01 See_Comment [Auto mated = 7700774950) message] The s ystem which generated this result transmitted reference range : 10*3/?L. The reference range was not used to interpret this result as normal/abnormal . GRAN MAT (NEUT) % 57.9 % (test code = 770-8) IMM GRAN % (test code 0.40 % = 1515299949) LYMPH % (test code = 35.2 % 736-9) MONO % (test code = 4.0 % 5905-5) EOS % (test code = 2.2 % 713-8) BASO % (test code = 0.3 % 706-2) GRAN MAT x10^3(ANC) 6.17 10*3/uL 1.88-7.09 (test code = 5783214378) IMM GRAN x10^3 (test 0.04 10*3/uL 0-0.06 code = 0573618298) LYMPH x10^3 (test code 3.74 10*3/uL 1.32-3.29 H = 731-0) MONO x10^3 (test code 0.43 10*3/uL 0.33-0.92 = 742-7) EOS x10^3 (test code = 0.23 10*3/uL 0.03-0.39 711-2) BASO x10^3 (test code 0.03 10*3/uL 0.01-0.07 = 704-7) Lab Interpretation Abnormal (test code = 75324-9) [facility] [id number] 04:03:00 Test Item Value Reference Range Interpretation Comments POCT PREG (test code = 1605) positive On board controls acceptable with present C Line (test code = 3574) POCT PREG LOT # (test code = 3575) [id number] POCT PREG TEST DATE (test 11/06/2020 code = 3576) Lab Interpretation (test code = Normal 12497-3) [facility] acute hospital URINALYSIS W SPECIFIC [id number] 19:02:00 Test Item Value Reference Range Interpretation Comments POCT U SP GRAV (test code = . 1.005-1.025 3255) POCT PH U (test code = 3254) 6 mg/dl 5-8 POCT U LEUK EST (test code = 2+ Negative - Negative 3) POCT U NIT (test code = 3262) neg Negative - Negative POCT U PROT (test code = 3259) trace Negative - Negative POCT U GLU (test code = 3256) neg Negative - Negative POCT U KETONE (test code = 3258) neg Negative - Negative POCT U UROBILI (test code = . 0.2-1 3260) POCT U BILI (test code = 3261) . Negative - Negative POCT U BLD (test code = 3257) trace Negative - Negative POCT U COLOR (test code = 3266) POCT U APPEAR (test code = 3267) Lab Interpretation (test code = Abnormal 14124-3) [id number]:02:00 Test Item Value Reference Range Interpretation Comments POCT PREG (test code = 1605) Positive On board controls acceptable with C Yes Line (test code = 3574) POCT PREG LOT # (test code = 3575) POCT PREG TEST DATE (test code = 3576) [facility] [id number] 20:08:00 Test Item Value Reference Range Interpretation Comments POCT PREG (test code = 1605) Positive On board controls acceptable with C Yes Line (test code = 3574) POCT PREG LOT # (test code = 3575) POCT PREG TEST DATE (test code = 3576) [facility]
[2021-12-04 01:43] LABS: Urine Blood Negative (Negative); Urine Glucose Negative (Negative); Urine Protein Negative (Negative)
[2021-12-04] MEDS ORDERED: MEPERIDINE HCL 50 MG/ML ONE (02:25)
[2021-12-04] MEDS ORDERED: MEPERIDINE HCL 25 MG/ML SYR ONE (02:25)
[2021-12-04] MEDS ORDERED: PROMETHAZINE INJ 25 MG/ML AMP ONE (02:25)
--- NOTE | 2021-12-04 03:05 | ER ---
Nurse's Notes [facility] Name: Makenna Santo Age: 31 yrs Sex: Female : 1990 Arrival Date: 12/04/2021 Time: 01:20 Bed 13 Private MD: Diagnosis: Pain right leg. Possible lumbar radiculopathy Presentation: 12/04 01:23 Chief complaint: Patient states: I'm having lower back pain. I had it back in August vc1 too and treated it with Tylenol but this time it is worse and the Tylenol 3 I had left over from when I had my baby is not helping. It hurts if I sit and it hurts if I walk around. Coronavirus screen: Vaccine status: Patient reports being unvaccinated. At this time, the client does not indicate any symptoms associated with coronavirus-19. Ebola Screen: No symptoms or risks identified at this time. Initial Sepsis Screen: Does the patient meet any 2 criteria? No. Patient's initial sepsis screen is negative. Does the patient have a suspected source of infection? No. Patient's initial sepsis screen is negative. Risk Assessment: Do you want to hurt yourself or someone else? Patient reports no desire to harm self or others. Onset of symptoms was November 30, 2021. 01:23 Method Of Arrival: Ambulatory vc1 01:23 Acuity: MARY ANN 4 vc1 Triage Assessment: : General: Appears in no apparent distress. uncomfortable, Behavior is calm, cooperative, vc1 appropriate for age. Pain: Complains of pain in right lower back Pain radiates to left gluteal fold, left hamstring and posterior aspect of left knee Pain currently is 4 out of 10 on a pain scale. at worst was 10 out of 10 on a pain scale. Cardiovascular: No deficits noted. Respiratory: No deficits noted. GI: No deficits noted. Musculoskeletal: Reports pain in left lower back. 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 - Social history:: Smoking status: Patient denies any tobacco usage or history of. Screenin:26 Abuse screen: Denies threats or abuse. Denies injuries from another. Nutritional daphnie screening: No deficits noted. Tuberculosis screening: No symptoms or risk factors identified. Fall Risk None identified. Assessment: 02:11 General: Appears uncomfortable, obese, Behavior is cooperative, restless. Pain: daphnie Complains of pain in buttocks and right lower back Pain radiates to right leg Pain currently is 9 out of 10 on a pain scale. Neuro: No deficits noted. Cardiovascular: No deficits noted. Respiratory: No deficits noted. Musculoskeletal: No deficits noted. Injury Description: Pt denies any injury, but describes a lower back pain that radiates down her right leg. 02:38 General: The pt was medicated and placed on the bs O2 sat monitor. Her remains daphnie at bedside. The MD spoke with the pt and her about having an US of her leg to r/o DVT. They acknowledged understanding. . 02:41 General: US is at bedside.. daphnie Vital Signs: 01:23 BP 135 / 97; Pulse 97; Resp 20; Temp 98.1; Pulse Ox 100% ; Weight 163.29 kg; Height 5 vc1 ft. 7 in. (170.18 cm); Pain 4/10; 02:26 BP 138 / 94; Pulse 106; Resp 18; Temp 98.4; Pulse Ox 99% ; Pain 9/10; daphnie 01:23 Body Mass Index 56.38 (163.29 kg, 170.18 cm) vc1 ED Course: 01:20 Patient arrived in ED. es 01:28 Triage completed. vc1 01:28 Arm band placed on right wrist. vc1 02:07 Daisy Dickerson, NANCI is Primary Nurse. daphnie 02:10 Alberto Marques MD is Attending Physician. pkl 02:26 Patient has correct armband on for positive identification. Placed in gown. Bed in low daphnie position. Call light in reach. Side rails up X 1. Adult w/ patient. Warm blanket given. Verbal reassurance given. 02:28 No provider procedures requiring assistance completed. daphnie 03:02 US Extremity Venous Unilateral Ltd In Process Unspecified. EDMS 03:16 Patient did not have IV access during this emergency room visit. sf1 Administered Medications: 02:38 Drug: Demerol (meperidine) 75 mg Route: IM; Site: right gluteus; daphnie 02:38 Drug: Phenergan (promethazine) 25 mg Route: IM; Site: right gluteus; daphnie Outcome: 02:40 Condition: stable daphnie 03:04 Discharge ordered by . serg 03:16 Discharged to home ambulatory. sf1 03:16 Discharge instructions given to patient, Instructed on discharge instructions, follow up and referral plans. Demonstrated understanding of instructions, follow-up care, medications, Prescriptions given X 2. 03:16 Patient left the ED. sf1 Signatures: Dispatcher [employer] Alberto Gunn MD MD pkl Salyer, Edna es O'Farrell, Brenda, RN RN bo Calcote, Vanessa, RN RN vc1 Laura Lama RN RN sf1 Corrections: (The following items were deleted from the chart) 01:29 01:28 PSHx: None; vc1 vc1
--- NOTE | 2021-12-04 03:05 | EDPHYS ---
Physician Documentation [facility] Name: Makenna Santo Age: 31 yrs Sex: Female : 1990 Arrival Date: 12/04/2021 Time: 01:20 Bed 13 Private MD: ED Physician Alberto Marques HPI: 12/04 02:23 This 31 yrs old Female presents to ER via Ambulatory with complaints of Low pkl Back Pain. 02:23 The patient presents with pain that is acute. The symptoms are located in the low back. pkl The pain radiates to the right leg. Onset: The symptoms/episode began/occurred 4 day(s) ago. The patient has experienced a previous episode, approximately 4 months ago, but today's symptoms are worse. 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 - Social history:: Smoking status: Patient denies any tobacco usage or history of. ROS: 02:25 Eyes: Negative for injury, pain, redness, and discharge, ENT: Negative for injury, pkl pain, and discharge, Neck: Negative for injury, pain, and swelling, Cardiovascular: Negative for chest pain, palpitations, and edema, Respiratory: Negative for shortness of breath, cough, wheezing, and pleuritic chest pain. 02:25 Abdomen/GI: Negative for abdominal pain, nausea, vomiting, and diarrhea. 02:25 Back: Positive for pain at rest, of the lower back. 02:25 : Negative for urinary symptoms. 02:25 MS/extremity: Positive for pain, of the right leg. 02:25 Skin: Negative for rash. 02:25 Neuro: Negative for altered mental status, loss of consciousness. Exam: 02:25 Head/Face: Normocephalic, atraumatic. Eyes: Pupils equal round and reactive to light, pkl extra-ocular motions intact. Lids and lashes normal. Conjunctiva and sclera are non-icteric and not injected. Cornea within normal limits. Periorbital areas with no swelling, redness, or edema. ENT: Nares patent. No nasal discharge, no septal abnormalities noted. Tympanic membranes are normal and external auditory canals are clear. Oropharynx with no redness, swelling, or masses, exudates, or evidence of obstruction, uvula midline. Mucous membranes moist. Neck: Trachea midline, no thyromegaly or masses palpated, and no cervical lymphadenopathy. Supple, full range of motion without nuchal rigidity, or vertebral point tenderness. No Meningismus. Chest/axilla: Normal chest wall appearance and motion. Nontender with no deformity. No lesions are appreciated. Cardiovascular: Regular rate and rhythm with a normal S1 and S2. No gallops, murmurs, or rubs. Normal PMI, no JVD. No pulse deficits. Respiratory: Lungs have equal breath sounds bilaterally, clear to auscultation and percussion. No rales, rhonchi or wheezes noted. No increased work of breathing, no retractions or nasal flaring. 02:25 Abdomen/GI: Inspection: obese Bowel sounds: normal, Palpation: abdomen is soft and non-tender, in all quadrants. 02:25 Back: pain, that is moderate, of the lower back, Straight leg raises: right lower extremity illicits pain, at 30 degrees. 02:25 : Exam negative for acute changes. 02:25 Musculoskeletal/extremity: Extremities: grossly normal except: noted in the right leg: pain. 02:25 Skin: Exam negative for rash. 02:25 Neuro: Orientation: is normal, Mentation: is normal, Cranial nerves: grossly normal, Motor: is normal. Vital Signs: 01:23 BP 135 / 97; Pulse 97; Resp 20; Temp 98.1; Pulse Ox 100% ; Weight 163.29 kg; Height 5 vc1 ft. 7 in. (170.18 cm); Pain 4/10; 02:26 BP 138 / 94; Pulse 106; Resp 18; Temp 98.4; Pulse Ox 99% ; Pain 9/10; daphnie 01:23 Body Mass Index 56.38 (163.29 kg, 170.18 cm) vc1 MDM: 02:10 Patient medically screened. pkl 02:40 Data reviewed: vital signs, nurses notes, lab test result(s), radiologic studies, pkl ultrasound. 03:00 ED course: Discussed imaging studies with patient. Advised MRI lumbar as outpatient. To pkl follow up with PCP in 2 to 3 days. Patient understood instructions. 12/04 01:42 Order name: Urine Dipstick-Ancillary; Complete Time: 02:14 EDMS 12/04 01:43 Order name: Urine --Ancillary (enter results); Complete Time: 02:14 mw2 12/04 01:43 Order name: Urine Dipstick-Ancillary (obtain specimen); Complete Time: :43 mw2 12/04 02:31 Order name: US Extremity Venous Unilateral Ltd pkl 12/04 01:43 Order name: Urine Test (obtain specimen); Complete Time: :43 mw2 Administered Medications: 02:38 Drug: Demerol (meperidine) 75 mg Route: IM; Site: right gluteus; daphnie 02:38 Drug: Phenergan (promethazine) 25 mg Route: IM; Site: right gluteus; daphnie Disposition Summary: 12/04/21 03:04 Discharge Ordered Location: Home pkl Problem: new pkl Symptoms: have improved pkl Condition: Stable pkl Diagnosis - Pain right leg. Possible lumbar radiculopathy pkl Followup: pkl - With: Private Physician - When: 2 - 3 days - Reason: Re-evaluation by your physician Discharge Instructions: - Discharge Summary Sheet pkl Forms: - Medication Reconciliation Form pkl - Thank You Letter pkl - Antibiotic Education pkl - Prescription Opioid Use pkl Prescriptions: - Cyclobenzaprine 10 mg Oral Tablet - take 1 tablet by ORAL route 2 times per day As needed; 20 tablet; Refills: 0, pkl Product Selection Permitted - Diclofenac Sodium 75 mg Oral Tablet Sustained Release - take 1 tablet by ORAL route 2 times per day; 30 tablet; Refills: 0, Product pkl Selection Permitted Signatures: Dispatcher [employer] Alberto Crandall MD MD pkl Wolgfang Crump mw2 Daisy Dickerson RN RN bo Calcote, Vanessa, RN RN vc1 Corrections: (The following items were deleted from the chart) 01:28 PSHx: None; vc1 vc1
[2021-12-04 03:24] VITALS: BP 138/94; TEMP 98.4; O2SAT 99
--- NOTE | 2021-12-04 08:46 | RAD REPORT ---
EXAM DESCRIPTION: US - Extremity Venous Uni Ltd - 12/04/2021 3:02 am CLINICAL HISTORY: PAIN Leg swelling and edema. COMPARISON: No comparisons FINDINGS: Right lower extremity venous system was interrogated with Doppler technique. Normal flow, compressibility and augmentation was noted. There is no DVT present. IMPRESSION: No evidence of right lower extremity deep venous thrombosis.
== END 2021-12-04 03:16 | disposition home or self-care (01) ==
LOC: ER 01:17
DX: M79.604 Pain in right leg (principal)
CPT/HCPCS: 81003; 81025; 93971; 96372; 99283; J2175; J2550